=== PATIENT | female | born 1935 | race Caucasian/White ===

== ENCOUNTER 2019-12-31 11:06 | Outpatient (CLI) | payer MEDICARE, OTHER | END 2019-12-31 11:07 | disposition home or self-care (01) | LOC: COV 11:06 | PROVIDERS: ATTEND Family Medicine | DX: R50.9 Fever, unspecified (principal) | CPT/HCPCS: 81599 ==

== ENCOUNTER 2022-03-22 11:10 | Emergency (ER) | payer MEDICARE, OTHER ==
--- NOTE | 2022-03-22 11:27 | ED Physician Documentation ---
PD HPI CHEST PAIN - Stated complaint Stated Complaint: CHESTPAIN SOA WEAKNESS - Chief complaint Chief Complaint: Cardiac - History obtained from History obtained from: Patient, Family - History of Present Illness Timing - onset: How many weeks ago (1) Associated symptoms: Shortness of air - Additional information Additional information: () 86-year-old female with history of A. fib on Xarelto, hypertension, CKD (unknown stage, not on dialysis) presents by private vehicle with daughter who is her caregiver for 1 week of gradually worsening shortness of breath and fatigue. History is obtained primarily from daughter as the patient is a poor historian and cannot remember most of the details of her illness. Daughter states that the patient is normally active around the house and participatory in chores such as folding laundry, however the last week it was become progressively more tiresome for the patient to perform even normal ADLs. Today she states that the patient felt even more short of breath and appeared to grab her chest, and so she brought her mother in for evaluation. Patient at this time denies any chest pain, she states that she has felt very fatigued lately. Denies nausea, vomiting, leg swelling, orthopnea, other complaints at this time. Review of Systems Unable to obtain: Dementia Constitutional: denies: Weight Loss, Sweats Cardiac: denies: Chest pain / pressure, Pedal edema Respiratory: reports: Dyspnea. denies: Wheezing GI: denies: Abdominal Pain, Nausea, Vomiting Neurologic: reports: Other (Fatigue) PD PAST MEDICAL HISTORY - Past Medical History Past Medical History: Yes Cardiovascular: Atrial fibrillation - Allergies Allergies/Adverse Reactions: Allergies Allergy/AdvReac Type Severity Reaction Status Date / Time Penicillins Allergy Anaphylaxis Verified 03/22/22 11:19 PD ED PE NORMAL - Vitals Vital signs reviewed: Yes - General General: No acute distress, Well developed/nourished, Other (AOx2) - HEENT HEENT: Atraumatic, PERRL, EOMI - Neck Neck: Supple, no meningeal sign, No bony TTP, No adenopathy - Cardiac Cardiac: No murmur, No gallop, No rub, Other (Irregularly irregular) - Respiratory Respiratory: No respiratory distress, Clear bilaterally - Abdomen Abdomen: Soft, Non tender, Non distended - Back Back: No CVA TTP, No spinal TTP - Derm Derm: Normal color, No rash - Extremities Extremities: No deformity, No edema - 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, No motor deficit, No sensory deficit, Normal speech - Psych Psych: Normal mood, Normal affect Results - Vitals Vitals: Vital Signs - 24 hr 03/22/22 03/22/22 03/22/22 11:13 12:13 12:27 Temperature 36.1 C L Heart Rate 78 65 78 Respiratory 16 13 14 Rate Blood Pressure 218/125 H 212/117 H 176/100 H O2 Saturation 98 98 96 03/22/22 03/22/22 03/22/22 13:38 13:48 15:29 Temperature Heart Rate 73 Respiratory 18 Rate Blood Pressure 209/101 H 223/104 H 195/101 H O2 Saturation 100 03/22/22 16:25 Temperature Heart Rate 71 Respiratory 12 Rate Blood Pressure 208/93 H O2 Saturation 100 Oxygen O2 Source Room air - EKG (time done) 1124 Rate: Rate (enter#) Rhythm: Atrial fibrillation [place]: Normal Ischemia: Normal ST segments. No: ST depression - Labs Labs: Laboratory Tests 03/22/22 03/22/22 03/22/22 11:27 11:27 11:27 WBC 5.6 RBC 4.09 L Hgb 13.3 Hct 40.9 MCV 100.0 H MCH 32.5 H MCHC 32.5 RDW 13.6 Plt Count 191 MPV 10.2 Neut # (Auto) 3.9 Lymph # (Auto) 1.1 L [place] # (Auto) 0.4 Eos # (Auto) 0.2 Baso # (Auto) 0.1 Absolute Nucleated RBC 0.00 Nucleated RBC % 0.0 PT INR APTT Sodium 138 Potassium 4.6 Chloride 99 L Carbon Dioxide 29 Anion Gap 10.0 BUN 36 H Creatinine 1.6 H Estimated GFR (MDRD) 31 L Glucose 118 H Calcium 9.0 Total Bilirubin 1.3 H AST 18 ALT 12 Alkaline Phosphatase 45 Troponin I High Sens 16.7 H* B-Natriuretic Peptide Total Protein 6.9 Albumin 3.9 Globulin 3.0 Albumin/Globulin Ratio 1.3 Urine Color Urine Clarity Urine pH Ur Specific [place] Urine Protein Urine Glucose (UA) Urine Ketones Urine Occult Blood Urine Nitrite Urine Bilirubin Urine Urobilinogen Ur Leukocyte Esterase Urine RBC Urine WBC Ur Squamous Epith Cells Urine Bacteria Ur Microscopic Review Urine Culture Comments 03/22/22 03/22/22 03/22/22 11:27 11:27 13:06 WBC RBC Hgb Hct MCV MCH MCHC RDW Plt Count MPV Neut # (Auto) Lymph # (Auto) [place] # (Auto) Eos # (Auto) Baso # (Auto) Absolute Nucleated RBC Nucleated RBC % PT 20.4 H INR 1.8 H APTT 34.1 H Sodium Potassium Chloride Carbon Dioxide Anion Gap BUN Creatinine Estimated GFR (MDRD) Glucose Calcium Total Bilirubin AST ALT Alkaline Phosphatase Troponin I High Sens 16.3 H* B-Natriuretic Peptide 581 H Total Protein Albumin Globulin Albumin/Globulin Ratio Urine Color Urine Clarity Urine pH Ur Specific [place] Urine Protein Urine Glucose (UA) Urine Ketones Urine Occult Blood Urine Nitrite Urine Bilirubin Urine Urobilinogen Ur Leukocyte Esterase Urine RBC Urine WBC Ur Squamous Epith Cells Urine Bacteria Ur Microscopic Review Urine Culture Comments 03/22/22 13:18 WBC RBC Hgb Hct MCV MCH MCHC RDW Plt Count MPV Neut # (Auto) Lymph # (Auto) [place] # (Auto) Eos # (Auto) Baso # (Auto) Absolute Nucleated RBC Nucleated RBC % PT INR APTT Sodium Potassium Chloride Carbon Dioxide Anion Gap BUN Creatinine Estimated GFR (MDRD) Glucose Calcium Total Bilirubin AST ALT Alkaline Phosphatase Troponin I High Sens B-Natriuretic Peptide Total Protein Albumin Globulin Albumin/Globulin Ratio Urine Color YELLOW Urine Clarity CLEAR Urine pH 7.0 Ur Specific [place] 1.010 Urine Protein NEGATIVE Urine Glucose (UA) NEGATIVE Urine Ketones NEGATIVE Urine Occult Blood NEGATIVE Urine Nitrite NEGATIVE Urine Bilirubin NEGATIVE Urine Urobilinogen 0.2 (NORMAL) Ur Leukocyte Esterase SMALL H Urine RBC None Seen Urine WBC 6-10 H Ur Squamous Epith Cells MOD Squamous H Urine Bacteria Few Ur Microscopic Review INDICATED Urine Culture Comments NOT INDICATED PD MEDICAL DECISION MAKING - ED course ED course: Patient presenting for evaluation of 1 week of gradually worsening symptoms. Hypertensive on arrival, however lungs are clear to auscultation bilaterally, oxygen saturations within normal limits on room air. EKG A. fib without evidence of ischemia. Initial troponin is 16, however patient does have CKD, GFR is in the 30s. No previous values for comparison. Patient is resting comfortably, she denies any chest pain at this time, states that she does not feel short of breath at this time, it is only with exertion. Will obtain 2-hour troponin and will reassess. 2-hour troponin is unchanged from previous. I was able to speak with the [facility] anaesthetic technician Dr. Mayfield, who stated that the patient was complicated and has not had a repeat echo. Requested transfer to [facility] for continuity of care. At 1440 there were no bed available and transfer center stated they would call back at 1530 with an update. 1600 - no update from [facility] placed call for update. Patient has been accepted by [facility] for potential transfer, however no beds available immediately at this time. She was placed on transfer list, hopeful bed will be available either tonight or early tomorrow morning. Patient and the family were updated, they are in agreement with this plan at this time - Consults Consults: Consulted (name) (Dr. Mayfield) Departure - Departure Disposition: 02 Transfer Acute Care Hosp Clinical Impression: Dyspnea Qualifiers: Dyspnea type: shortness of breath Qualified Code(s): R06.02 - Shortness of breath; R06.00 - Dyspnea, unspecified; R06.01 - Orthopnea Atrial fibrillation Qualifiers: Atrial fibrillation type: longstanding persistent Qualified Code(s): I48.11 - Longstanding persistent atrial fibrillation
[2022-03-22 11:34] LABS: BASOPHILS # (AUTO) 0.1 10^3/uL (0.0-0.1); BASOPHILS % (AUTO) 1.2 %; EOSINOPHILS # (AUTO) 0.2 10^3/uL (0.0-0.7); EOSINOPHILS % (AUTO) 3.6 %; HCT - HEMATOCRIT 40.9 % (37.0-47.0); HGB - HEMOGLOBIN 13.3 g/dL (12.0-16.0); LYMPHOCYTES # (AUTO) 1.1 10^3/uL (1.5-3.5); LYMPHOCYTES % (AUTO) 19.7 %; MEAN CORPUSCULAR HEMOGLOBIN 32.5 pg (27.0-31.0); MEAN CORPUSCULAR HGB CONC 32.5 g/dL (32.0-36.0); MEAN PLATELET VOLUME 10.2 fL (7.9-10.8); MONOCYTES # (AUTO) 0.4 10^3/uL (0.0-1.0); MONOCYTES % (AUTO) 6.7 %; NEUTROPHILS # (AUTO) 3.9 10^3/uL (1.5-6.6); NEUTROPHILS % (AUTO) 68.6 %; PLT - PLATELET COUNT 191 10^3/uL (130-450); RED BLOOD COUNT 4.09 10^6/uL (4.20-5.40); RED CELL DISTRIBUTION WIDTH 13.6 % (12.0-15.0); WHITE BLOOD COUNT 5.6 x10^3/uL (4.8-10.8)
[2022-03-22 11:41] LABS: INR 1.8 (0.8-1.2); PT - PROTHROMBIN TIME 20.4 secs (9.9-12.6)
[2022-03-22 11:49] LABS: ALBUMIN 3.9 g/dL (3.2-5.5); ALBUMIN/GLOBULIN RATIO 1.3 (1.0-2.2); BILIRUBIN,TOTAL 1.3 mg/dL (0.2-1.0); CREATININE 1.6 mg/dL (0.4-1.0); POTASSIUM 4.6 mmol/L (3.5-5.0); TOTAL PROTEIN 6.9 g/dL (6.7-8.2)
[2022-03-22 11:50] LABS: PARTIAL THROMBOPLASTIN TIME 34.1 secs (24.9-33.3)
[2022-03-22] MEDS ORDERED: NITROGLYCERIN SL 0.4 MG TABLET SL PRN (11:58)
--- NOTE | 2022-03-22 12:00 | XRAY Report ---
PROCEDURE: Chest 1 View X-Ray INDICATIONS: chest pain TECHNIQUE: One view of the chest was acquired. COMPARISON: None FINDINGS: Surgical changes and devices: None. Lungs and pleura: No pleural effusions or pneumothorax. Lungs are clear. Mediastinum: Mediastinal contours appear normal. Heart size is normal. Bones and chest wall: No suspicious bony lesions. Overlying soft tissues appear unremarkable. IMPRESSION: No acute process. Reviewed by: Cristiano López MD on 03/22/2022 11:58 AM PDT Approved by: Cristiano López MD on 03/22/2022 11:58 AM PDT Station ID: [id number]
[2022-03-22] MEDS ORDERED: hydrALAZINE INJ 20 MG/ML VIAL IVP STA (13:25)
[2022-03-22 13:59] LABS: BILIRUBIN,URINE NEGATIVE (NEGATIVE); CLARITY,URINE CLEAR (CLEAR); GLUCOSE, URINE (UA) NEGATIVE (NEGATIVE); KETONES,URINE (UA) NEGATIVE (NEGATIVE); LEUKOCYTE ESTERASE, URINE SMALL (NEGATIVE); NITRITE,URINE NEGATIVE (NEGATIVE); OCCULT BLOOD,URINE NEGATIVE (NEGATIVE); PROTEIN,URINE NEGATIVE (NEGATIVE); UROBILINOGEN,URINE 0.2 (NORMAL) E.U./dL (NORMAL)
[2022-03-22 14:09] LABS: BACTERIA,URINE Few /HPF (None Seen); RBC,URINE None Seen /HPF (0-5); SQUAMOUS EPITHELIAL CELL,UR MOD Squamous (<= Few)
[2022-03-22] MEDS ORDERED: ONDANSETRON 4 MG/2 ML VIAL IVP STA (19:44)
[2022-03-22] MEDS ORDERED: ACETAMINOPHEN 1,000 MG/100 ML BAG IV ONE (19:44)
[2022-03-23 13:12] VITALS: BP 194/84
[2022-03-23] MEDS ORDERED: METOPROLOL 5 MG/5 ML VIAL IVP STA (13:33)
--- NOTE | 2022-03-23 17:39 | ED Physician Documentation ---
ED Addendum - Addendum Addendum: 03/23/22 17:38[facility] now has bed availability. I talked with Dr. Mclaughlin the hospitalist and updated him on the patient's status. The patient has remained without chest pain here at this time. Dr. Mclaughlin was excepting of the patient. Disposition: The patient is transferred to acute care facility in stable condition. Diagnoses: 1. Exertional dyspnea and fatigue. 2. Progressive angina
== END 2022-03-23 14:09 | disposition short-term general hospital (02) ==
LOC: ED 11:10
DX: I48.11 Longstanding persistent atrial fibrillation (principal); N18.9 Chronic kidney disease, unspecified; R06.01 Orthopnea; F03.90 Unspecified dementia, unspecified severity, without behavioral disturbance, psychotic disturbance, mood disturbance, and anxiety; Z20.822 Contact with and (suspected) exposure to COVID-19; I20.9 Angina pectoris, unspecified
CPT/HCPCS: 36415; 71045; 80053; 81001; 83880; 84484; 85025; 85610; 85730; 87635; 93005; 96365; 96375; 99282; 99285; A9270; J0131; 81003; 87086

== ENCOUNTER 2022-07-03 09:46 | Outpatient (CLI) | payer MEDICARE, OTHER | END 2022-07-03 09:47 | disposition critical access hospital (66) | LOC: EMS 09:46 | DX: R53.1 Weakness (principal); R55 Syncope and collapse | CPT/HCPCS: A0425; A0429 ==

== ENCOUNTER 2022-07-03 09:59 | Emergency (ER) | payer MEDICARE, OTHER ==
[2022-07-03 10:37] LABS: BASOPHILS % (AUTO) 0.7 %; EOSINOPHILS # (AUTO) 0.1 10^3/uL (0.0-0.7); EOSINOPHILS % (AUTO) 2.4 %; HCT - HEMATOCRIT 42.4 % (37.0-47.0); HGB - HEMOGLOBIN 14.2 g/dL (12.0-16.0); MEAN CORPUSCULAR HEMOGLOBIN 33.1 pg (27.0-31.0); MEAN CORPUSCULAR HGB CONC 33.5 g/dL (32.0-36.0); MEAN CORPUSCULAR VOLUME 98.8 fL (81.0-99.0); MEAN PLATELET VOLUME 9.7 fL (7.9-10.8); MONOCYTES # (AUTO) 0.4 10^3/uL (0.0-1.0); NEUTROPHILS # (AUTO) 4.3 10^3/uL (1.5-6.6); NEUTROPHILS % (AUTO) 73.6 %; PLT - PLATELET COUNT 195 10^3/uL (130-450); RED BLOOD COUNT 4.29 10^6/uL (4.20-5.40); WHITE BLOOD COUNT 5.8 x10^3/uL (4.8-10.8)
[2022-07-03 10:49] LABS: ALBUMIN/GLOBULIN RATIO 1.3 (1.0-2.2); BILIRUBIN,TOTAL 1.5 mg/dL (0.2-1.0); CALCIUM 9.4 mg/dL (8.5-10.3); CREATININE 1.5 mg/dL (0.4-1.0); POTASSIUM 3.9 mmol/L (3.5-5.0); TOTAL PROTEIN 7.2 g/dL (6.7-8.2)
[2022-07-03] MEDS ORDERED: SODIUM CHLORIDE 0.9% 500 ML IV STA (11:02)
--- NOTE | 2022-07-03 11:03 | ED Physician Documentation ---
History of Present Illness - Stated complaint Stated Complaint: WEAKNESS/SOA/NEAR SYNCOPE - Chief complaint Chief Complaint: Neuro - History obtained from History obtained from: Patient, Family - Additonal information Additional information: Patient is an 86-year-old female with history of atrial fibrillation presenting for evaluation of feeling near syncopal and generalized weakness since last night. Patient reports getting up to the bathroom and feeling weak and fell down to her knees. She does not believe she struck her head but is unsure. She does not believe she lost consciousness. She was able to get to the bathroom and back into bed. Again this morning she has been feeling weak and lightheaded. She is also reported recently feeling short of breath Including at rest. She has a history of A. fib. She is no longer on a blood thinner Per her daughter as they took her off it a few months ago due to concerns of a possible head bleed.Patient denies a headache. She denies episodes of chest pain. She denies abdominal pain, vomiting, dysuria. Per her daughter her lower extremity swelling is improved. Review of Systems Constitutional: denies: Fever Nose: denies: Congestion Cardiac: denies: Chest pain / pressure Respiratory: reports: Dyspnea. denies: Cough GI: denies: Abdominal Pain, Vomiting : denies: Dysuria Musculoskeletal: denies: Back pain Neurologic: reports: Generalized weakness. denies: Focal weakness, Syncope, Headache PD PAST MEDICAL HISTORY - Past Medical History Cardiovascular: Atrial fibrillation : Renal insuffiency - Present Medications Home Medications: Ambulatory Orders Medication Instructions Recorded Confirmed Hydralazine HCl 50 mg PO Q8H 07/03/22 07/03/22 Levothyroxine [Synthroid] 88 mcg PO QDAC 07/03/22 07/03/22 Memantine [Namenda] 10 mg PO BID 07/03/22 07/03/22 Omeprazole Magnesium [Prilosec] 20 mg PO BID 07/03/22 07/03/22 Rivastigmine [Exelon 13.3MG] 1 each TD DAILY 07/03/22 07/03/22 Rosuvastatin Calcium [Crestor] 5 mg PO DAILY 07/03/22 07/03/22 amLODIPine [Norvasc] 5 mg PO DAILY 07/03/22 07/03/22 carvediloL [Coreg] 12.5 mg PO BID 07/03/22 07/03/22 - Allergies Allergies/Adverse Reactions: Allergies Allergy/AdvReac Type Severity Reaction Status Date / Time Penicillins Allergy Anaphylaxis Verified 03/22/22 11:19 - Social History Does the pt smoke?: No Smoking Status: Never smoker Does the pt drink ETOH?: No Does the pt have substance abuse?: No - Immunizations Immunizations are current?: Yes - POLST Patient has POLST: No PD ED PE NORMAL - General General: No acute distress, Well developed/nourished, Other (Alert and oriented to person, place, situation but does not know month and year which per daughter is baseline for her) - HEENT HEENT: Atraumatic, Moist mucous membranes - Neck Neck: Supple, no meningeal sign - Cardiac Cardiac: Strong equal pulses (Irregularly irregular, normal rate) - Respiratory Respiratory: No respiratory distress, Clear bilaterally - Abdomen Abdomen: Non tender, Non distended - Derm Derm: Warm and dry - Extremities Extremities: No calf tenderness / cord, Other (Symmetric lower extremity edema) - 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 No: Alert and oriented X 3 (Alert and oriented to baseline) Results - Vitals Vitals: Vital Signs - 24 hr 07/03/22 07/03/22 07/03/22 10:12 12:17 14:00 Temperature 36.8 C Heart Rate 74 74 78 Respiratory 20 13 28 H Rate Blood Pressure 208/85 H 161/95 H 155/78 H O2 Saturation 100 100 99 Oxygen O2 Source Room air - EKG (time done) 1010 Rate: Rate (enter#) (71) Rhythm: Atrial fibrillation Intervals: No: Prolonged QT Ischemia: No: ST elevation c/w ischemia - Labs Labs: Laboratory Tests 07/03/22 07/03/22 07/03/22 10:31 10:31 10:31 WBC 5.8 RBC 4.29 Hgb 14.2 Hct 42.4 MCV 98.8 MCH 33.1 H MCHC 33.5 RDW 13.0 Plt Count 195 MPV 9.7 Neut # (Auto) 4.3 Lymph # (Auto) 1.0 L [place] # (Auto) 0.4 Eos # (Auto) 0.1 Baso # (Auto) 0.0 Absolute Nucleated RBC 0.00 Nucleated RBC % 0.0 D-Dimer Sodium 140 Potassium 3.9 Chloride 104 Carbon Dioxide 26 Anion Gap 10.0 BUN 37 H Creatinine 1.5 H Estimated GFR (MDRD) 33 L Glucose 102 H Calcium 9.4 Total Bilirubin 1.5 H AST 17 ALT 11 Alkaline Phosphatase 48 Troponin I High Sens 12.8 B-Natriuretic Peptide Total Protein 7.2 Albumin 4.0 Globulin 3.2 Albumin/Globulin Ratio 1.3 Urine Color Urine Clarity Urine pH Ur Specific [place] Urine Protein Urine Glucose (UA) Urine Ketones Urine Occult Blood Urine Nitrite Urine Bilirubin Urine Urobilinogen Ur Leukocyte Esterase Ur Microscopic Review Urine Culture Comments SARS-CoV-2 (PCR) 07/03/22 07/03/22 07/03/22 10:31 10:39 11:10 WBC RBC Hgb Hct MCV MCH MCHC RDW Plt Count MPV Neut # (Auto) Lymph # (Auto) [place] # (Auto) Eos # (Auto) Baso # (Auto) Absolute Nucleated RBC Nucleated RBC % D-Dimer 261.3 H Sodium Potassium Chloride Carbon Dioxide Anion Gap BUN Creatinine Estimated GFR (MDRD) Glucose Calcium Total Bilirubin AST ALT Alkaline Phosphatase Troponin I High Sens B-Natriuretic Peptide 267 H Total Protein Albumin Globulin Albumin/Globulin Ratio Urine Color Urine Clarity Urine pH Ur Specific [place] Urine Protein Urine Glucose (UA) Urine Ketones Urine Occult Blood Urine Nitrite Urine Bilirubin Urine Urobilinogen Ur Leukocyte Esterase Ur Microscopic Review Urine Culture Comments SARS-CoV-2 (PCR) NOT DETECTED 07/03/22 13:08 WBC RBC Hgb Hct MCV MCH MCHC RDW Plt Count MPV Neut # (Auto) Lymph # (Auto) [place] # (Auto) Eos # (Auto) Baso # (Auto) Absolute Nucleated RBC Nucleated RBC % D-Dimer Sodium Potassium Chloride Carbon Dioxide Anion Gap BUN Creatinine Estimated GFR (MDRD) Glucose Calcium Total Bilirubin AST ALT Alkaline Phosphatase Troponin I High Sens B-Natriuretic Peptide Total Protein Albumin Globulin Albumin/Globulin Ratio Urine Color LIGHT YELLOW Urine Clarity CLEAR Urine pH 6.5 Ur Specific [place] <=1.005 Urine Protein NEGATIVE Urine Glucose (UA) NEGATIVE Urine Ketones NEGATIVE Urine Occult Blood NEGATIVE Urine Nitrite NEGATIVE Urine Bilirubin NEGATIVE Urine Urobilinogen 0.2 (NORMAL) Ur Leukocyte Esterase NEGATIVE Ur Microscopic Review NOT INDICATED Urine Culture Comments NOT INDICATED SARS-CoV-2 (PCR) PD MEDICAL DECISION MAKING - ED course Complexity details: reviewed results, re-evaluated patient, d/w patient, d/w family ED course: Pt presenting with generalized weakness. No focal deficits. CT head ordered due to ?head injury. Appears unchanged from March. Reviewed with pt and daughter in regards to need for outpatient MRI. Labs reviewed. Ddimer negative if age adjusted. TRoponin negative and pt has denied CP. Does not appear septic. She feels better after small fluid bolus and is ambulating here at her baseline. BP improved without meds. Daughter and pt comfortable with plan for discharge and close follow up. 1330 - Passed road test. Departure - Departure Disposition: Home, Self Care Clinical Impression: Generalized weakness Condition: Stable Instructions: ED Weakness UKO Comments: You were Evaluated for weakness and lightheadedness. Your EKG shows that you are in atrial fibrillation but you are rate controlled. Your labs were checked and there are no signs of a heart attack or blood clot in your body. I do not see signs of an infection or electrolyte issue. You did feel better after IV fluids and were able to ambulate at your baseline. Please contact your primary care doctor on Tuesday for close outpatient follow-up. You may need an outpatient MRI of your brain given the abnormality seen on today's CT scan as well as back in March. If you have any worsening symptoms please consider return to the ER. Discharge Date/Time: 07/03/22 14:44
--- NOTE | 2022-07-03 11:33 | XRAY Report ---
PROCEDURE: Chest 1 View X-Ray INDICATIONS: weakness TECHNIQUE: One view of the chest was acquired. COMPARISON: 03/22/2022 FINDINGS: Surgical changes and devices: None. Lungs and pleura: No pleural effusions or pneumothorax. Lungs are clear. Mediastinum: Mediastinal contours appear normal. Heart size is enlarged. Atherosclerotic vascular calcification noted in the aortic arch. Bones and chest wall: No suspicious bony lesions. Overlying soft tissues appear unremarkable. IMPRESSION: 20 mL without vascular congestion Reviewed by: Marko Green MD on 07/03/2022 10:32 AM UCHE Approved by: Marko Green MD on 07/03/2022 10:32 AM [place] Station ID: [id number]
--- NOTE | 2022-07-03 11:47 | CT Report ---
PROCEDURE: CT brain without contrast INDICATIONS: near syncope/?head injury TECHNIQUE: Noncontrast 4.5 mm thick angled axial sections acquired from the foramen magnum to the vertex. For r adiation dose reduction, the following was used: automated exposure control, adjustment of mA and/or kV according to patient size. COMPARISON: None. FINDINGS: Image quality: Excellent. CSF spaces: Basal cisterns are patent. No extra-axial fluid collections. Ventricles are normal in size and shape. Brain: No midline shift. 4 mm hyperdensity in the right centrum semiovale white matter. No surroundi ng edema. No mass effect. Box-white matter interface is normal. Moderate atrophy and multifocal wh ite matter chronic ischemic change noted. Atherosclerotic vascular calcification noted in the [place] segments of both internal carotid arteries as well as the intradural vertebral arteries. Old left cerebellar infarct. Skull and face: Calvarium and visualized facial bones are intact, without suspicious lesions. Sinuses: Visualized sinuses and mastoids are clear. IMPRESSION: 1. Punctate hyperdensity in the right centrum semiovale white matter is stable from a prior exam date d 03/26/2022 from [facility]. Differential small petechial hemorrhage and calcification po ssibly related to cavernous hemangioma. Further evaluation with MRI recommended. No new hemorrhage or midline shift 2. Atrophy and chronic ischemic change Note: Critical results were discussed with Dr. Zeng at 10:40 AM [place] time on 07/03/2022 Reviewed by: Marko Green MD on 07/03/2022 10:45 AM AKDT Approved by: Marko Green MD on 07/03/2022 10:45 AM AKDT Station ID: [id number]
[2022-07-03 13:19] LABS: BILIRUBIN,URINE NEGATIVE (NEGATIVE); GLUCOSE, URINE (UA) NEGATIVE (NEGATIVE); KETONES,URINE (UA) NEGATIVE (NEGATIVE); LEUKOCYTE ESTERASE, URINE NEGATIVE (NEGATIVE); NITRITE,URINE NEGATIVE (NEGATIVE); OCCULT BLOOD,URINE NEGATIVE (NEGATIVE); PH,URINE 6.5 PH (5.0-7.5); PROTEIN,URINE NEGATIVE (NEGATIVE); UROBILINOGEN,URINE 0.2 (NORMAL) E.U./dL (NORMAL)
[2022-07-03 13:20] LABS: CLARITY,URINE CLEAR (CLEAR)
[2022-07-03 14:44] VITALS: BP 155/78
== END 2022-07-03 14:44 | disposition home or self-care (01) ==
LOC: EDUNIT# → ED 09:59
DX: R53.1 Weakness (principal); I48.91 Unspecified atrial fibrillation; Z20.822 Contact with and (suspected) exposure to COVID-19
CPT/HCPCS: 36415; 80053; 81001; 81003; 83880; 84484; 85025; 85379; 87086; 93005; 99284

== ENCOUNTER 2023-09-10 08:00 | Outpatient (CLI) | payer MEDICARE, OTHER | END 2023-09-10 23:59 | disposition home or self-care (01) | LOC: LAB.N 08:00 | PROVIDERS: ATTEND Physician Assistant Medical | DX: R11.0 Nausea (principal) | CPT/HCPCS: 87086 ==

== ENCOUNTER 2024-02-28 09:22 | Emergency (ER) | payer MEDICARE, OTHER ==
[2024-02-28 10:39] LABS: BASOPHILS % (AUTO) 0.3 %; EOSINOPHILS # (AUTO) 0.2 10^3/uL (0.0-0.7); HGB - HEMOGLOBIN 13.3 g/dL (12.0-16.0); LYMPHOCYTES # (AUTO) 0.8 10^3/uL (1.5-3.5); LYMPHOCYTES % (AUTO) 12.6 %; MEAN CORPUSCULAR HEMOGLOBIN 32.7 pg (27.0-31.0); MEAN CORPUSCULAR HGB CONC 33.3 g/dL (32.0-36.0); MEAN CORPUSCULAR VOLUME 98.3 fL (81.0-99.0); MEAN PLATELET VOLUME 9.7 fL (7.9-10.8); MONOCYTES # (AUTO) 0.2 10^3/uL (0.0-1.0); MONOCYTES % (AUTO) 2.8 %; NEUTROPHILS # (AUTO) 4.8 10^3/uL (1.5-6.6); NEUTROPHILS % (AUTO) 80.8 %; PLT - PLATELET COUNT 191 10^3/uL (130-450); RED BLOOD COUNT 4.07 10^6/uL (4.20-5.40); RED CELL DISTRIBUTION WIDTH 13.2 % (12.0-15.0)
[2024-02-28 10:52] LABS: ALBUMIN 4.3 g/dL (3.2-5.5); ALBUMIN/GLOBULIN RATIO 1.5 (1.0-2.2); BILIRUBIN,TOTAL 1.8 mg/dL (0.2-1.0); CALCIUM 9.7 mg/dL (8.5-10.3); CREATININE 1.3 mg/dL (0.6-1.3); POTASSIUM 3.5 mmol/L (3.5-4.5); TOTAL PROTEIN 7.1 g/dL (6.4-8.9)
--- NOTE | 2024-02-28 13:23 | ED Physician Documentation ---
History of Present Illness - Stated complaint Stated Complaint: HIGH BLOOD PRESSURE,VOMITING - Chief complaint Chief Complaint: Abd Pain - Additonal information Additional information: 88-year-old female with history of hypertension, A-fib, Alzheimer's disease, renal insufficiency presents emergency department for Episode of left chest pain, shortness of breath, hypertension. Patient had a couple episodes of nausea vomiting diarrhea that occurred last night her caregiver is at bedside and \is describing the symptoms below. Because of the nausea vomiting diarrhea that the patient is having as well as her poor appetite she is unable to take her antihypertensive medication. She comes into the emergency department for hypertension left chest pain. She has not had any nausea or vomiting since she has been here in the emergency department. PD PAST MEDICAL HISTORY - Past Medical History Past Medical History: Yes Cardiovascular: Hypertension, Atrial fibrillation Neuro: Alzhiemer's : Renal insuffiency - Present Medications Home Medications: Ambulatory Orders Medication Instructions Recorded Confirmed Hydralazine HCl 50 mg PO Q8H 07/03/22 02/28/24 Levothyroxine [Synthroid] 88 mcg PO QDAC 07/03/22 02/28/24 Memantine [Namenda] 10 mg PO BID 07/03/22 02/28/24 Omeprazole Magnesium [Prilosec] 20 mg PO BID 07/03/22 07/03/22 Rivastigmine [Exelon 13.3MG] 1 each TD DAILY 07/03/22 02/28/24 Rosuvastatin Calcium [Crestor] 5 mg PO DAILY 07/03/22 02/28/24 amLODIPine [Norvasc] 5 mg PO DAILY 07/03/22 02/28/24 carvediloL [Coreg] 12.5 mg PO BID 07/03/22 02/28/24 Mirtazapine 0.5 tab PO DAILY 02/28/24 02/28/24 Pantoprazole [Protonix] 1 tab PO DAILY 02/28/24 02/28/24 amLODIPine [Norvasc] 1 tab PO DAILY 02/28/24 02/28/24 - Allergies Allergies/Adverse Reactions: Allergies Allergy/AdvReac Type Severity Reaction Status Date / Time aspirin Allergy Anaphylaxis Verified 02/28/24 15:04 Gadolinium-Containing Allergy Hives Verified 02/28/24 15:06 Contrast Medi iodine Allergy Hives Verified 02/28/24 15:06 Penicillins Allergy Anaphylaxis Verified 02/28/24 10:14 - Social History Does the pt smoke?: No Smoking Status: Never smoker Does the pt drink ETOH?: No Does the pt have substance abuse?: No - Immunizations Immunizations are current?: Yes - POLST Patient has POLST: No PD ED PE NORMAL - Vitals Vital signs reviewed: Yes - General General: No acute distress, Well developed/nourished, Other (Alert and oriented x 1-2) - HEENT HEENT: Atraumatic, PERRL - Cardiac Cardiac: Other (Irregularly irregular) - Respiratory Respiratory: No respiratory distress, Clear bilaterally - Abdomen Abdomen: Normal bowel sounds, Soft, Non tender, No organomegaly - Back Back: No CVA TTP - Derm Derm: Normal color, Warm and dry, No rash - Extremities Extremities: No edema, No calf tenderness / cord - Neuro Neuro: attractions associate 2-12 intact, No motor deficit, No sensory deficit, Normal speech Results - Vitals Vitals: Vital Signs - 24 hr 02/28/24 02/28/24 02/28/24 10:08 13:28 15:00 Temperature 36.9 C 36.9 C Heart Rate 57 L 65 70 Respiratory 15 18 18 Rate Blood Pressure 180/98 H 190/92 H 175/85 H O2 Saturation 99 99 97 02/28/24 02/28/24 02/28/24 17:00 18:30 19:59 Temperature Heart Rate 72 58 L 74 Respiratory 20 16 16 Rate Blood Pressure 161/76 H 153/70 H 183/78 H O2 Saturation 98 94 94 Oxygen O2 Source Room air - EKG (time done) 1511 EKG releavant findings:: EKG personally interpreted by author of this note. Relevant findings are: Rate: Rate (enter#) (63) Rhythm: Atrial fibrillation [place]: LAD Intervals: Normal AR Ischemia: Normal ST segments Computer interpretation: Agree with computer - Labs Labs: Laboratory Tests 02/28/24 02/28/24 02/28/24 10:35 10:35 10:35 WBC 6.0 RBC 4.07 L Hgb 13.3 Hct 40.0 MCV 98.3 MCH 32.7 H MCHC 33.3 RDW 13.2 Plt Count 191 MPV 9.7 Neut # (Auto) 4.8 Lymph # (Auto) 0.8 L [place] # (Auto) 0.2 Eos # (Auto) 0.2 Baso # (Auto) 0.0 Absolute Nucleated RBC 0.00 Nucleated RBC % 0.0 Sodium 138 Potassium 3.5 Chloride 101 Carbon Dioxide 26 Anion Gap 11.0 BUN 31 H Creatinine 1.3 Estimated GFR (MDRD) 39 L Glucose 124 H Calcium 9.7 Total Bilirubin 1.8 H AST 17 ALT 8 L Alkaline Phosphatase 45 Troponin I High Sens 15.3 H* Total Protein 7.1 Albumin 4.3 Globulin 2.8 Albumin/Globulin Ratio 1.5 Lipase 97 H Urine Color Urine Clarity Urine pH Ur Specific [place] Urine Protein Urine Glucose (UA) Urine Ketones Urine Occult Blood Urine Nitrite Urine Bilirubin Urine Urobilinogen Ur Leukocyte Esterase Ur Microscopic Review Urine Culture Comments Nasal Adenovirus (PCR) Nasal B. parapertussis DNA (PCR) Nasal Coronavir 229E PCR Nasal Coronavir HKU1 PCR Nasal Coronavir NL63 PCR Nasal Coronavir OC43 PCR Nasal Enterovir/Rhinovir PCR Nasal Influenza B PCR Nasal Influenza A PCR Nasal Parainfluen 1 PCR Nasal Parainfluen 2 PCR Nasal Parainfluen 3 PCR Nasal Parainfluen 4 PCR Nasal RSV (PCR) Nasal B.pertussis DNA PCR Nasal C.pneumoniae (PCR) Zuhair Human Metapneumo PCR Nasal M.pneumoniae (PCR) Nasal SARS-CoV-2 (PCR) 02/28/24 02/28/24 02/28/24 13:47 14:39 15:26 WBC RBC Hgb Hct MCV MCH MCHC RDW Plt Count MPV Neut # (Auto) Lymph # (Auto) [place] # (Auto) Eos # (Auto) Baso # (Auto) Absolute Nucleated RBC Nucleated RBC % Sodium Potassium Chloride Carbon Dioxide Anion Gap BUN Creatinine Estimated GFR (MDRD) Glucose Calcium Total Bilirubin AST ALT Alkaline Phosphatase Troponin I High Sens 16.8 H* Total Protein Albumin Globulin Albumin/Globulin Ratio Lipase Urine Color YELLOW Urine Clarity CLEAR Urine pH 8.0 H Ur Specific [place] 1.010 Urine Protein NEGATIVE Urine Glucose (UA) NEGATIVE Urine Ketones NEGATIVE Urine Occult Blood NEGATIVE Urine Nitrite NEGATIVE Urine Bilirubin NEGATIVE Urine Urobilinogen 0.2 (NORMAL) Ur Leukocyte Esterase NEGATIVE Ur Microscopic Review NOT INDICATED Urine Culture Comments NOT INDICATED Nasal Adenovirus (PCR) NOT DETECTED Nasal B. parapertussis DNA (PCR) NOT DETECTED Nasal Coronavir 229E PCR NOT DETECTED Nasal Coronavir HKU1 PCR NOT DETECTED Nasal Coronavir NL63 PCR NOT DETECTED Nasal Coronavir OC43 PCR NOT DETECTED Nasal Enterovir/Rhinovir PCR NOT DETECTED Nasal Influenza B PCR NOT DETECTED Nasal Influenza A PCR NOT DETECTED Nasal Parainfluen 1 PCR NOT DETECTED Nasal Parainfluen 2 PCR NOT DETECTED Nasal Parainfluen 3 PCR NOT DETECTED Nasal Parainfluen 4 PCR NOT DETECTED Nasal RSV (PCR) NOT DETECTED Nasal B.pertussis DNA PCR NOT DETECTED Nasal C.pneumoniae (PCR) NOT DETECTED Zuhair Human Metapneumo PCR NOT DETECTED Nasal M.pneumoniae (PCR) NOT DETECTED Nasal SARS-CoV-2 (PCR) NOT DETECTED - Rads (name of study) Chest x-ray Relevant Findings:: Final report received, EMP independent interpretation of test, Other (Blunting of the right costophrenic angle possible right effusion versus lung scarring, prominent pulmonary vasculature suggestive of pulmonary hypertension.) CT chest angio Relevant Findings:: Final report received, EMP independent interpretation of test, Other (No acute pulmonary emboli, cardiomegaly, main pulmonary artery shayla sures 3.1 cm in diameter most likely due to pulmonary arterial hypertension.) PD Medical Decision Making - ED course ED course: 88-year-old female presents emergency department for left-sided chest pain shortness of breath, episode of nausea vomiting with hypertension due to the fact that patient is unable to take antihypertensives at home. Patient's daughter is at bedside at this point in time was able to provide more history. She reports that she has chronic atrial fibrillation and is not anticoagulated. Patient had a spontaneous intracranial hemorrhage a couple years ago and her integrity manager removed her from her anticoagulants because of spontaneous intracranial hemorrhage. Patient was also found in the room to have a good Pleth and intermittent hypoxia sats down to 8987% because of this I could not rule out possible pulmonary embolism. CT angio was complete for further evaluation and it did not reveal any pulmonary embolism it revealed cardiomegaly which is already known as well as pulmonary hypertension. Labs are also complete for further evaluation of patient's symptoms and initial troponin was found to be elevated at 15.3 and then delta troponin 16.8 not making me concerned or worried about this being related to possible acute coronary syndrome as there is no positive delta. No significant electrolyte abnormalities GFR slightly suppressed at 39 this appears to be chronic for patient given her chronic kidney disease lipase slightly elevated at 97 but not indicative of possible cholecystitis or bile occlusion. No leukocytosis no anemia. Patient had a complete and thorough workup and evaluation she was monitored for several hours in the emergency department and her symptoms did not change she might have sleep apnea as her oxygen tended to drop when she was at rest or sleeping but she was told to follow-up with her integrity manager and primary care provider for further evaluation outpatient they are given ER return precautions told to resume her antihypertensives at home she said no nausea or vomiting for several hours in the emergency department as well as received 1 L of IV fluids. All questions been answered to patient's daughter who is currently her caregiver and they understand when to report back to the emergency department plan to follow-up with patient's integrity manager outpatient. Departure - Departure Disposition: Home, Self Care Clinical Impression: Cardiomegaly, Pulmonary hypertension Instructions: Abdominal Pain, Hypertension Pulmonary Comments: Thank you for trusting us with your care and I apologize for such a long ER visit. At this point in time we believe that your mom is safe for discharge she does have possible pulmonary hypertension and cardiomegaly which is seen on the CT scan I have copied and pasted the CT results below for your evaluation and reading. If you would like to further pursue this follow-up with her integrity manager at this point in time there is no further inventions that is stanford jones. Take your hypertension medications when you get home report back to ER if symptoms worsen or any other concerning symptoms. Wishing you a speedy recovery. EXAM: [id number] CT/CHTANG ([id number]) PROCEDURE: Angio Chest INDICATIONS: rule out PE CONTRAST: 80ml [id number] TECHNIQUE: After the administration of intravenous contrast, 2 mm axial images were acquired from the pulmonary apices to the posterior costophrenic angles during the arterial phase. In addition, 1 mm lung kernel and 5 mm soft tissue kernel reconstructions were performed. 3-dimensional coronal oblique maximum intensity projection (MIP) reformats, 8 mm axial MIP, and 5 mm coronal and sagittal MPR reformats were then performed through the thorax. For radiation dose reduction, the following was used: automated exposure control, adjustment of mA and/or kV according to patient size. COMPARISON: Chest radiographs 02/28/2024. FINDINGS: Image quality: Excellent. Large vessels: No filling defects within the opacified pulmonary arteries, accounting for motion and contrast timing. No evidence of acute aortic syndrome or aortic aneurysm. Main pulmonary artery measures up to 3.1 cm in diameter, which can be seen in the setting of pulmonary arterial hypertension. Right and left main pulmonary arteries also appear mildly prominent. Lungs and pleura: No consolidation. No pleural effusions. No pneumothorax. No suspicious pulmonary nodules which require follow up. Mediastinum: Heart size is enlarged. No pericardial effusion. No large vessel abnormality. No mediastinal adenopathy by size criteria. Chest wall and lower neck: Thyroid is unremarkable. No axillary or supraclavicular adenopathy by size. Bones: No aggressive osseous abnormality. Upper Abdomen: There is reflux of contrast material into the hepatic veins. Status post cholecystectomy. IMPRESSION: 1.No acute pulmonary embolus. 2.Cardiomegaly. 3.Main pulmonary artery measures 3.1 cm in diameter, which can be seen in the setting of pulmonary arterial hypertension. Forms: PCP List Discharge Date/Time: 02/28/24 20:03
[2024-02-28] MEDS: SODIUM CHLORIDE 0.9% 1,000 ML IV ONE (13:41)
[2024-02-28] MEDS: ONDANSETRON 4 MG/2 ML VIAL IVP STA (13:41)
--- NOTE | 2024-02-28 14:41 | XRAY Report ---
PROCEDURE: Chest 1V INDICATIONS: chest pain TECHNIQUE: One view of the chest was acquired. COMPARISON: 07/03/2022. FINDINGS: Surgical changes and devices: Cholecystectomy clips. Lungs and pleura: Blunting of the right costophrenic angle. No consolidation. Mediastinum: Mediastinal contours appear normal. Heart size is mildly enlarged, with prominence pul monary vasculature. Bones and chest wall: No suspicious bony lesions. Overlying soft tissues appear unremarkable. IMPRESSION: Blunting of the right costophrenic angle, which may indicate a small right effusion versus right lung scarring. Prominent pulmonary vasculature, suggestive of pulmonary hypertension. Reviewed by: Veto Carpenter MD on 02/28/2024 2:40 PM PDT Approved by: Veto Carpenter MD on 02/28/2024 2:40 PM PDT Station ID: [id number]
[2024-02-28 14:45] LABS: BILIRUBIN,URINE NEGATIVE (NEGATIVE); GLUCOSE, URINE (UA) NEGATIVE (NEGATIVE); KETONES,URINE (UA) NEGATIVE (NEGATIVE); LEUKOCYTE ESTERASE, URINE NEGATIVE (NEGATIVE); NITRITE,URINE NEGATIVE (NEGATIVE); OCCULT BLOOD,URINE NEGATIVE (NEGATIVE); PROTEIN,URINE NEGATIVE (NEGATIVE); UROBILINOGEN,URINE 0.2 (NORMAL) E.U./dL (NORMAL)
[2024-02-28 15:01] LABS: CLARITY,URINE CLEAR (CLEAR)
[2024-02-28 15:22] LABS: B. PARAPERTUSSIS- RESP PCR PAN NOT DETECTED; B. PERTUSSIS- RESP PCR PANEL NOT DETECTED; C. PNEUMONIAE- RESP PCR PANEL NOT DETECTED; CORONAVIRUS 229E-RESP PCR NOT DETECTED; CORONAVIRUS HKU1-RESP PCR NOT DETECTED; CORONAVIRUS NL63-RESP PCR NOT DETECTED; CORONAVIRUS OC43-RESP PCR NOT DETECTED; HUMAN METAPNEUMOVIRUS NOT DETECTED; INFLUENZA A- RESP PCR PANEL NOT DETECTED; INFLUENZA B - RESP PCR PANEL NOT DETECTED; M. PNEUMONIAE- RESP PCR PANEL NOT DETECTED; PARAINFLUENZA VIRUS 1 NOT DETECTED; PARAINFLUENZA VIRUS 2 NOT DETECTED; PARAINFLUENZA VIRUS 3 NOT DETECTED; PARAINFLUENZA VIRUS 4 NOT DETECTED; RHINOVIRUS/ENTEROVIRUS NOT DETECTED; RSV- RESP PCR PANEL NOT DETECTED; SARS-CoV-2 -RESP PCR PANEL NOT DETECTED
[2024-02-28] MEDS ORDERED: iohexoL-300 100 ML VIAL ONE (17:03)
[2024-02-28] MEDS: methylPREDNISolone SUCCINATE 125 MG/2 ML VIAL IVP STA (17:40)
[2024-02-28] MEDS: diphenhydrAMINE INJ 50 MG/ML VIAL IVP STA (17:41)
[2024-02-28] MEDS: iohexoL-300 100 ML VIAL IVP ONE (18:56)
[2024-02-28 19:26] VITALS: O2SAT 94
--- NOTE | 2024-02-28 19:26 | CT Report ---
PROCEDURE: Angio Chest INDICATIONS: rule out PE CONTRAST: 80ml [id number] TECHNIQUE: After the administration of intravenous contrast, 2 mm axial images were acquired from the pulmonary apices to the posterior costophrenic angles during the arterial phase. In addition, 1 mm lung kernel and 5 mm soft tissue kernel reconstructions were performed. 3-dimensional coronal oblique maximum int ensity projection (MIP) reformats, 8 mm axial MIP, and 5 mm coronal and sagittal MPR reformats were t hen performed through the thorax. For radiation dose reduction, the following was used: automated exp osure control, adjustment of mA and/or kV according to patient size. COMPARISON: Chest radiographs 02/28/2024. FINDINGS: Image quality: Excellent. Large vessels: No filling defects within the opacified pulmonary arteries, accounting for motion and contrast timing. No evidence of acute aortic syndrome or aortic aneurysm. Main pulmonary artery colby ures up to 3.1 cm in diameter, which can be seen in the setting of pulmonary arterial hypertension. R ight and left main pulmonary arteries also appear mildly prominent. Lungs and pleura: No consolidation. No pleural effusions. No pneumothorax. No suspicious pulmonary n odules which require follow up. Mediastinum: Heart size is enlarged. No pericardial effusion. No large vessel abnormality. No mediast inal adenopathy by size criteria. Chest wall and lower neck: Thyroid is unremarkable. No axillary or supraclavicular adenopathy by size . Bones: No aggressive osseous abnormality. Upper Abdomen: There is reflux of contrast material into the hepatic veins. Status post cholecystecto my. IMPRESSION: 1.No acute pulmonary embolus. 2.Cardiomegaly. 3.Main pulmonary artery measures 3.1 cm in diameter, which can be seen in the setting of pulmonary ar terial hypertension. Reviewed by: Adam Morfin MD on 02/28/2024 7:25 PM PDT Approved by: Adam Morfin MD on 02/28/2024 7:25 PM PDT Station ID: [id number]
[2024-02-28 20:04] VITALS: BP 183/78
== END 2024-02-28 20:03 | disposition home or self-care (01) ==
LOC: ED 09:22
DX: I51.7 Cardiomegaly (principal); I27.20 Pulmonary hypertension, unspecified; I48.91 Unspecified atrial fibrillation; G30.9 Alzheimer's disease, unspecified; F02.80 Dementia in other diseases classified elsewhere, unspecified severity, without behavioral disturbance, psychotic disturbance, mood disturbance, and anxiety; Z79.899 Other long term (current) drug therapy
CPT/HCPCS: 36415; 71045; 71275; 80053; 81003; 83690; 84484; 85025; 87633; 93005; 96374; 96375; 99284; J1200; Q9967; 81001; 87086

== ENCOUNTER 2025-06-21 09:15 | Inpatient (IN) ==
--- NOTE | 2025-06-21 10:11 | ED Physician Documentation ---
PD HPI Fall Stated complaint Stated Complaint: GLF/HIP PX Chief complaint Chief Complaint: General History obtained from History obtained from: Patient and Family Additional information Additional information: Fide gillette is an 89-year-old female resident of a memory care unit and this morning she was observed on camera to be getting out of bed and getting herself caught up in her nightgown and falling onto her left hip. She did not strike her head she is not taking blood thinners. She is complaining of severe pain to her left hip. She denies any current illness and she has an allergy to penicillins and aspirin. [place] Coma Scale Assess Eye opening: Spontaneous Verbal response: Confused Motor response: Obeys Commands Total score: 14 Review of Systems Patient denies any recent illness she denies any fever chills sweats cough sputum production nausea vomiting constipation diarrhea or urinary urgency frequency or dysuria. Meds/Allgy Home Medications Ambulatory Orders Medication Instructions Recorded Confirmed levothyroxine 88 mcg tablet 88 mcg PO QDAC 07/03/22 amlodipine 5 mg tablet 5 mg PO HS 02/28/24 06/21/25 mirtazapine 15 mg tablet 15 mg PO HS 02/28/24 5 acetaminophen 325 mg tablet 650 mg PO Q6H PRN pain 06/21/25 aluminum-mag hydroxide-simethicone 30 ml PO Q4HR PRN h eartburn 06/21/25 06/21/25 200 mg-200 mg-20 mg/5 mL oral susp (Antacid) atorvastatin 10 mg tablet 5 mg PO HS 06/21/25 06/21/25 carvedilol 3.125 mg tablet 3.125 mg PO BID 06/21/25 docusate sodium 100 mg capsule 100 mg PO DAILY PRN con stipation 06/21/25 06/21/25 hydralazine 100 mg tablet 100 mg PO TID 06/21/2506/21 loperamide 2 mg tablet 2 mg PO Q2H PRN loose stool 06/21/25 06/21/25 losartan 50 mg tablet 50 mg PO HS 06/21/25 5 magnesium hydroxide 400 mg/5 mL 30 ml PO DAILY PRN con stipation 06/21/25 06/21/25 oral suspension memantine 10 mg tablet 10 mg PO BID 06/21/25 nystatin 100,000 unit/gram topical 1 applic topical TI D PRN rash 06/21/25 06/21/25 powder (Nystop) Allergies Allergies Allergy/AdvReac Type Severity Reaction Status Date / Time aspirin Allergy Anaphylaxis Verified 06/21/25 09:18 Gadolinium-Containing Allergy Hives Verified 06/21/25 09:18 Contrast Medi iodine Allergy Hives Verified 06/21/25 09:18 Penicillins Allergy Anaphylaxis Verified 06/21/25 09:18 PFSH Active Problems All Active Problems (Updated 06/21/25 @ 15:39 by Daren Rick DO) Hypertension (Chronic) Femoral neck fracture (Acute) Medical History Medical History (Updated 06/21/25 @ 15:39 by Daren Rick DO) Dementia Social History Social History Smoking Status: Unknown if ever smoked Second hand tobacco smoke exposure: No Do you dip or chew tobacco?: No Do you vape?: No Level: Dependent Do you feel safe in your home environment?: Yes History of physical, verbal, emotional, or financial abuse?: No POLST Patient has POLST: No Exam Exam Vital Signs: Vital Signs x48h Temp Pulse Resp BP Pulse Ox 06/21/25 10:00 89 16 193/102 H 94 06/21/25 09:16 36.9 C 95 22 202/130 H 94 Pleasant 89-year-old female who answers questions appropriately and periodically complains of pain. Blood pressure is markedly elevated at 202/130 the remainder of the vitals are normal. Constitutional normal general appearance, no apparent distress, average body habitus, no limitations and alert HENMT normocephalic and head/scalp atraumatic Respiratory breath sounds equal bilaterally, normal respiratory effort and clear to auscultation bilaterally Cardiovascular normal heart rate noted, regular rhythm noted and no murmur Gastrointestinal abdomen normal to inspection and nontender to palpation Extremities The left leg is held in flexion there is pain to palpation of the trochanter there is a known fracture the leg is not moved further Psychiatry mental status grossly normal Skin skin color normal Results Vitals Vitals: Vital Signs - 24 hr 06/21/25 09:16 06/21/25 10:00 06/21/25 10:20 Temperature 36.9 C Temperature Source Temporal Artery Scan Pulse Rate 95 89 Respiratory Rate 22 16 Blood Pressure 202/130 H 193/102 H O2 Saturation 94 94 O2 Source Room air Room air Pain Intensity 10 8 06/21/25 11:00 Temperature Temperature Source Pulse Rate Respiratory Rate Blood Pressure O2 Saturation O2 Source Pain Intensity 3 Oxygen O2 Source Room air Labs Labs: Laboratory Tests 06/21/25 10:22 WBC 7.9 RBC 3.40 L Hgb 11.1 L Hct 34.6 L MCV 101.8 H MCH 32.6 H MCHC 32.1 RDW 14.1 Plt Count 223 MPV 9.4 Neut # (Auto) 6.8 H Lymph # (Auto) 0.[address] # (Auto) 0.4 Eos # (Auto) 0.1 Baso # (Auto) 0.0 Absolute Nucleated RBC 0.00 Nucleated RBC % 0.0 Sodium 135 Potassium 4.6 H Chloride 100 L Carbon Dioxide 29 Anion Gap 6.0 BUN 21 H Creatinine 1.2 Estimated GFR (MDRD) 42 L Glucose 119 H Calcium 8.9 Total Bilirubin 1.4 H AST 16 ALT 13 Alkaline Phosphatase 55 Total Protein 6.8 Albumin 3.7 Globulin 3.1 Albumin/Globulin Ratio 1.2 Lipase 32 Rads (name of study) hip: Relevant Findings:: EMP independent interpretation of test (femoral neck fracture, impacted. ) Interpretation: Impression: Impacted, left subcapital femoral neck fracture. PD Medical Decision Making ED course Complexity details: reviewed old records, reviewed results, re-evaluated patient, considered differential and d/w patient ED course: Fide Ortiz is an 89-year-old female who presents to the emergency department after a ground-level fall and fracture of her left hip. She has a left femoral neck fracture Discharge Plan Discharge Patient Disposition: [facility] DC/Xfer Clinical Impression: Femoral neck fracture Qualifiers: Encounter type: initial encounter Fracture type: closed Laterality: left Qualified Code(s): S72.002A - Fracture of unspecified part of neck of left femur, initial encounter for closed fracture Interventions: ED Admission Assessment Last Done: 06/21/25 12:35 Vitals documented within 30 minutes of discharge?: No (refused)
[2025-06-21] MEDS: KETOROLAC 30 MG/ML VIAL IVP STA (10:20)
[2025-06-21] MEDS: SODIUM CHLORIDE 0.9% 1,000 ML IV STA (10:20)
--- NOTE | 2025-06-21 10:21 | XRAY Report ---
PROCEDURE: XR Hip w/Pelvis 2-3V LT INDICATIONS: GLF hip pain short/rotated TECHNIQUE: 3 views of the hip were acquired. COMPARISON: None FINDINGS: Bones: Impacted, left subcapital femoral neck fracture is present. This results in a varus deformity. No femoral head dislocation. No other pelvic fractures. Degenerative changes in the lower lumbar spine. Soft tissues: No suspicious soft tissue calcifications or masses. Moderate peripheral vascular calcification. IMPRESSION: Impacted, left subcapital femoral neck fracture. Reviewed by: Yue Myers MD on 06/21/2025 10:17 AM PDT Approved by: Yue Myers MD on 06/21/2025 10:17 AM PDT Station ID: [id number]
[2025-06-21 10:27] LABS: HCT - HEMATOCRIT 34.6 % (37.0-47.0); HGB - HEMOGLOBIN 11.1 g/dL (12.0-16.0); MEAN PLATELET VOLUME 9.4 fL (7.9-10.8); NRBC ABSOLUTE COUNT (AUTO) 0.00 x10^3/uL; NUCLEATED RED BLOOD CELLS AUTO 0.0 /100WBC; PLT - PLATELET COUNT 223 10^3/uL (130-450); RED CELL DISTRIBUTION WIDTH 14.1 % (12.0-15.0)
[2025-06-21 10:41] LABS: ALT ALANINE AMINOTRANSFERASE 13.0 IU/L (10-60); AST ASPARTATE AMINOTRANSFERASE 16.0 IU/L (10-42); BUN - BLOOD UREA NITROGEN 21.0 mg/dL (6-20); CARBON DIOXIDE - CO2 29.0 mmol/L (21-32); CREATININE 1.2 mg/dL (0.6-1.3); GFR - MDRD 42.0 (>89)
--- OUTSIDE RECORDS SUMMARY | 2025-06-21 11:55 | EXTERNAL MEDICAL SUMMARY RPT | Continuity of Care Document ---
Author Organization [facility] Address [address] [place] [id number] Phone Results/Labs test date facility value unit notes Result panel 1 NUCLEATED RED BLOOD CELLS AUTO 2025-06-21 10:22 [facility] 0.0 /100wbc (missing) BASOPHILS # (AUTO) 2025-06-21 10:22 [facility] 0.0 10 3/ul (missing) NRBC ABSOLUTE COUNT (AUTO) 2025-06-21 10:22 [facility] 0.00 x10 3/ul (missing) EOSINOPHILS # (AUTO) 2025-06-21 10:22 [facility] 0.1 10 3/ul (missing) MONOCYTES # (AUTO) 2025-06-21 10:22 [facility] 0.4 10 3/ul (missing) LYMPHOCYTES # (AUTO) 2025-06-21 10:22 [facility] 0.5 10 3/ul (missing) ALBUMIN/GLOBULIN RATIO 2025-06-21 10:22 [facility] 1.2 (missing) (missing) CREATININE 2025-06-21 10:22 [facility] 1.2 mg/dl As of April 2023 testing method has changed, this may include reference ranges. BILIRUBIN,TOTAL 2025-06-21 10:22 [facility] 1.4 mg /dl As of April 2023 testing method has changed, this may include reference ranges. CHLORIDE 2025-06-21 10:22 [facility] 100 mmol/l As of April 2023 testing method has changed, this may include reference ranges. MEAN CORPUSCULAR VOLUME 2025-06-21 10:22 [facility] 101. 8 fl (missing) HGB - HEMOGLOBIN 2025-06-21 10:22 [facility] 11.1 g /dl (missing) GLUCOSE 2025-06-21 10:22 [facility] 119 mg/dl As of April 2023 testing method has changed, this may include reference ranges. ALT ALANINE AMINOTRANSFERASE 2025-06-21 10: [facility] ([facility] [place]) 13 iu/l As of April 2023 testing method has changed, this may include reference ranges. SODIUM 2025-06-21 10:22 [facility] ([facility] [place]) 135 mmol/l (missing) RED CELL DISTRIBUTION WIDTH 2025-06-21 10: [facility] ([facility] [place]) 14.1 % (missing) AST ASPARTATE AMINOTRANSFERASE 2025-06-21 10: [facility] ([facility] [place]) 16 iu/l As of April 2023 testing method has changed, this may include reference ranges. BUN - BLOOD UREA NITROGEN 2025-06-21 10:22 [facility] ([facility] [place]) 21 mg/dl As of Apr testing method has changed, this may include reference ranges. PLT - PLATELET COUNT 2025-06-21 10: [facility] ([facility] [place]) 223 10 3/ul (missing) CARBON DIOXIDE - CO2 2025-06-21 10: [facility] ([facility] [place]) 29 mmol/l As of April 2023 testing method has changed, this may include reference ranges. GLOBULIN 2025-06-21 10:22 [facility] ([facility] [place]) 3.1 g/dl (missing) RED BLOOD COUNT 2025-06-21 10: [facility] ([facility] [place]) 3.40 10 6/ul (missing) ALBUMIN 2025-06-21 10: [facility] ([facility] [place]) 3.7 g/dl As of April 2023 testing method has changed, this may include reference ranges. LIPASE 2025-06-21 10:22 [facility] ([facility] [place]) 32 u/l As of April 2023 testing method has changed, this may include reference ranges. MEAN CORPUSCULAR HGB CONC 2025-06-21 10:22 [facility] ([facility] [place]) 32.1 g/dl (missing) MEAN CORPUSCULAR HEMOGLOBIN 2025-06-21 10:22 [facility] ([facility] [place]) 32.6 pg (missing) HCT - HEMATOCRIT 2025-06-21 10:22 [facility] ([facility] [place]) 34.6 % (missing) POTASSIUM 2025-06-21 10:22 [facility] ([facility] [place] 4.6 mmol/l As of April 2023 testing method has changed, this may include reference ranges. GFR - MDRD 2025-06-21 10:22 [facility] ([facility] [place]) 42 (in g) Social History date description facility
[2025-06-21] MEDS: ONDANSETRON 4 MG/2 ML VIAL IVP STA (12:01)
[2025-06-21] MEDS: HYDROmorphone 1 MG/ML CARPUJECT IVP STA (12:01)
--- NOTE | 2025-06-21 13:46 | PHARMACY PROGRESS NOTE ---
Best Possible Medication History Admit Date and Time: 06/21/25 [id number] Home Medications Medication Instructions Recorded Confirmed Type levothyroxine 88 mcg tablet 88 mcg PO QDAC 07/03/22 History amlodipine 5 mg tablet 5 mg PO HS 02/28/24 06/21/25 History mirtazapine 15 mg tablet 15 mg PO HS 02/28/24 5 History acetaminophen 325 mg tablet 650 mg PO Q6H PRN pain 06/21/25 History aluminum-mag hydroxide-simethicone 30 ml PO Q4HR PRN h eartburn 06/21/25 06/21/25 History 200 mg-200 mg-20 mg/5 mL oral susp (Antacid) atorvastatin 10 mg tablet 5 mg PO HS 06/21/25 06/21/25 History carvedilol 3.125 mg tablet 3.125 mg PO BID 06/21/25 History docusate sodium 100 mg capsule 100 mg PO DAILY PRN con stipation 06/21/25 06/21/25 History hydralazine 100 mg tablet 100 mg PO TID 06/21/2506/21 History loperamide 2 mg tablet 2 mg PO Q2H PRN loose stool 06/21/25 06/21/25 History losartan 50 mg tablet 50 mg PO HS 06/21/25 5 History magnesium hydroxide 400 mg/5 mL 30 ml PO DAILY PRN con stipation 06/21/25 06/21/25 History oral suspension memantine 10 mg tablet 10 mg PO BID 06/21/25 History nystatin 100,000 unit/gram topical 1 applic topical TI D PRN rash 06/21/25 06/21/25 History powder (Nystop) Processed by: Pharmacy Medications reviewed in ED?: No Medication History completed: Yes Patient Interview: Pt unable to participate Secondary Source(s): Facility MAR as ONLY source (MAR from [facility]) [facility] Statement: As the person ultimately responsible for medication therapy, providers are able to order a medication from an existing home medication list in [facility] via the "Reconcile Routine" prior to Confirmation of that medication by office support specialist. Such practice is discouraged except when the physician, in their clinical judgment, deems that a medical need exists for a medication without regard to previous use.
[2025-06-21] MEDS: ACETAMINOPHEN 500 MG TABLET PO SCH (14:06)
--- NOTE | 2025-06-21 15:21 | HISTORY & PHYSICAL EXAMINATION ---
Chief Complaint Chief Complaint Chief Complaint: Ground level fall History of Present Illness Admitted From Admitted From:: ED History Obtained From Records Reviewed: [facility] History obtained from: Patient, daughter Exam Limitations: Patient has dementia History of Present Illness HPI Comment/Other: Fide Heath is an 89-year-old female with past medical history notable for hypertension, Alzheimer's dementia, hypothyroidism, and insomnia who presents following a ground-level fall at her facility. She is found to have a femoral neck fracture. She is admitted for left femoral neck fracture. Patient had a mechanical ground-level fall at her facility. She lives at a memory care facility. She got up from bed and tripped on her nightgown falling onto her left hip. She did not lose consciousness. She did not strike her head. She not feel dizzy prior to falling. She is not on any blood thinners. Apparently in the ED, she was having profound pain in her left hip. She does not remember the fall. Given her dementia, she she does not remember why her butt hurts. She is putting pressure on her left hip because he she says it makes it feel better. She is unable to bear any weight in the community. She denies any fevers or chills, dysuria, urinary frequency, diarrhea, nausea or vomiting. Otherwise she has a history of hypertension, this is managed with multiple agents. Apparently she was doing well in the outpatient community and has been back down on her hydralazine to twice daily from 3 times daily. Regarding her dementia, it is moderate. She has difficulty with completing some of her ADLs. She does feed herself, she dresses herself. She toilets and bathes with prompting. She is on memantine. Otherwise was started on mirtazapine by her primary care doctor for treatment of sleep disturbance in the setting of her dementia. Meds/Allgy Home Medications Ambulatory Orders Medication Instructions Recorded Confirmed levothyroxine 88 mcg tablet 88 mcg PO QDAC 07/03/22 amlodipine 5 mg tablet 5 mg PO HS 02/28/24 06/21/25 mirtazapine 15 mg tablet 15 mg PO HS 02/28/24 5 acetaminophen 325 mg tablet 650 mg PO Q6H PRN pain 06/21/25 aluminum-mag hydroxide-simethicone 30 ml PO Q4HR PRN h eartburn 06/21/25 06/21/25 200 mg-200 mg-20 mg/5 mL oral susp (Antacid) atorvastatin 10 mg tablet 5 mg PO HS 06/21/25 06/21/25 carvedilol 3.125 mg tablet 3.125 mg PO BID 06/21/25 docusate sodium 100 mg capsule 100 mg PO DAILY PRN con stipation 06/21/25 06/21/25 hydralazine 100 mg tablet 100 mg PO TID 06/21/2506/21 loperamide 2 mg tablet 2 mg PO Q2H PRN loose stool 06/21/25 06/21/25 losartan 50 mg tablet 50 mg PO HS 06/21/25 5 magnesium hydroxide 400 mg/5 mL 30 ml PO DAILY PRN con stipation 06/21/25 06/21/25 oral suspension memantine 10 mg tablet 10 mg PO BID 06/21/25 nystatin 100,000 unit/gram topical 1 applic topical TI D PRN rash 06/21/25 06/21/25 powder (Nystop) Allergies Allergies Allergy/AdvReac Type Severity Reaction Status Date / Time aspirin Allergy Anaphylaxis Verified 06/21/25 09:18 Gadolinium-Containing Allergy Hives Verified 06/21/25 09:18 Contrast Medi iodine Allergy Hives Verified 06/21/25 09:18 Penicillins Allergy Anaphylaxis Verified 06/21/25 09:18 PFSH Active Problems All Active Problems (Updated 06/21/25 @ 15:47 by Daren Rick DO) Pre-op evaluation (Acute) Hypertension (Chronic) Femoral neck fracture (Acute) Medical History Medical History (Updated 06/21/25 @ 15:47 by Daren Rick DO) Dementia Social History Social History (Updated 06/21/25 @ 15:47 by Iain Brownlee MD) Smoking Status: Unknown if ever smoked Second hand tobacco smoke exposure: No Do you dip or chew tobacco?: No Do you vape?: No Level: Dependent Do you feel safe in your home environment?: Yes History of physical, verbal, emotional, or financial abuse?: No POLST Patient has POLST: No Review of Systems Status of ROS: 10 or more systems reviewed and unremarkable except as noted in history and below Exam Exam Vital Signs: Vital Signs x48h Temp Pulse Pulse Resp BP BP Pulse Ox 06/21/25 13:14 36.7 C 107 H 28 H 156/98 H 95 06/21/25 10:00 89 16 193/102 H 94 06/21/25 09:16 36.9 C 95 22 202/130 H 94 O2 Flow Rate 06/21/25 13:14 4 06/21/25 10:00 06/21/25 09:16 GEN: No acute distress, lying in bed HEENT: NC/AT, normal appearance of external ears and nose. Hearing baseline and intact. Cardiac: Irregular rhythm, rate in the 90s. No murmurs appreciated. Patient grossly euvolemic. Pulm: Lungs CTA bilaterally, no cough, no wheezes Abdomen: Soft, nontender, nondistended. No rebound or guarding Extremities: Left lower extremity is shorter and slightly internally rotated. Warm and well-perfused. Normal tone. Palpable pulses in all extremities. Neuro: Face symmetric, CN II through XII intact grossly. No focal neurologic deficits. Psych: Mood euthymic with congruent affect. Forgetful. Pleasantly demented. Conclusion/Plan Problem List (1) Femoral neck fracture: Plan: From a mechanical ground-level fall. Patient had a trip over her nightgown while she was at her memory care facility. She landed on her left hip. She did not hit her head. She has a left subcapital femoral neck fracture noted on x-ray. She is having pain in the left hip, currently managed with meds. * Discussed case with Ortho, plan for or tomorrow afternoon * NPO at 8 AM * SCDs and SQH for VTE prophylaxis * Tylenol scheduled every 8 hours for pain * Breakthrough pain with oxycodone oral * Lidocaine patch topically * Defer PT eval until after surgery * Pure wick in place Qualifiers: Encounter type: initial encounter Fracture type: closed Laterality: l eft Qualified Code(s): S72.002A - Fracture of unspecified part of neck of left femur, initial encounter for closed fracture (2) Dementia: Plan: Moderate Alzheimer's dementia. Patient lives in memory care. She still is able to feed herself. She is still on memantine. She has some mood disturbance and insomnia necessitating nightly mirtazapine. She has done well with this. Only recently started. * Continue mirtazapine nightly * Will hold memantine * Delirium precautions, will try and maintain normal sleep-wake cycles * Patient likely to need further rehabilitation in SNF after surgery Qualifiers: Alzheimer's disease onset: late onset Dementia behavioral or psychological symptom: with mood disturbance Dementia severity: moderate D ementia type: Alzheimer's Qualified Code(s): G30.1 - Alzheimer's disease with late onset; F02.B3 - Dementia in other diseases classified elsewhere, moderate, with mood disturbance (3) Atrial fibrillation: Plan: Patient is rate controlled. Does have irregular rhythm on my auscultation. Notably she is not on any anticoagulation. Confirmed this with her med rec from her [facility] care [facility] * I have ordered an EKG * Continue to monitor, currently rate controlled Qualifiers: Atrial fibrillation type: longstanding persistent Qualified Code(s): I 48.11 - Longstanding persistent atrial fibrillation (4) Hypertension: Plan: Patient is profoundly hypertensive at times in the ED. This is coming down somewhat. Suspect largely driven by pain. She is on multiple antihypertensives prior to this admission. She is on Coreg, amlodipine, hydralazine and losartan. Per her daughter's report, she has been considered for reducing dose of hydralazine given how well her blood pressure has been controlled. Based on EMS report, it does not sound like she became orthostatic when she fell, more related to mechanical factors and tripping over her nightgown. * Continue Coreg 3.125 mg twice daily * Continue hydralazine 100 mg p.o. twice daily and amlodipine 5 mg nightly * Will give [employer] losartan given that her procedure is late in the day tomorrow Qualifiers: Hypertension type: primary hypertension Qualified Code(s): I10 - Essential (primary) hypertension (5) Pre-op evaluation: Plan: Patient's RCRI 0. No history of congestive heart failure or ischemic heart disease. From a pulmonary perspective, daughter does report that she has witnessed apneic episodes when she is sleeping, but no other STOP-BANG criteria She is requiring oxygen via nasal cannula at this time, precipitated by pain medications and respiratory suppression. She may need an extended postoperative evaluation. She has a charted history of pulmonary hypertension, but is not on medications otherwise. She has atrial fibrillation, but is not on any anticoagulation. Has not been for several years since she had a head strike after a fall and subsequent head bleed * Will start IS and try to wean off oxygen * Keep head of bed up * Patient otherwise optimized for procedure medically * NPO 8AM tomorrow Lab Results 06/21/25 10:22 06/21/25 10:22
[2025-06-21] MEDS: oxyCODONE 5 MG TABLET PO PRN (15:43)
[2025-06-21] MEDS: SODIUM CHLORIDE FLUSH 0.9% 10 ML SYRINGE IVP SCH (16:56)
[2025-06-21] MEDS: ATORVASTATIN 10 MG TABLET PO SCH (21:30)
[2025-06-21] MEDS: MIRTAZAPINE 15 MG TABLET PO SCH (21:31)
[2025-06-21] MEDS: LOSARTAN 50 MG TABLET PO SCH (21:31)
[2025-06-21] MEDS: HEPARIN 5,000 UNIT/ML VIAL SUBQ SCH (21:43)
[2025-06-22] MEDS: ONDANSETRON ODT 4 MG TABLET TL PRN (03:15)
[2025-06-22] MEDS: HYDROmorphone 0.5 MG/0.5 ML SYRINGE IVP PRN ×2 (03:31→20:32)
--- NOTE | 2025-06-22 08:09 | PROVIDER PROGRESS NOTE ---
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 She got 2 dose of Dilaudid this morning. She is very sleepy this morning. Blood pressure better controlled this morning. Outside of pain, she is not having any other concerns this morning. She is reminded several times that she is having surgery today. She again does not remember her fall yesterday. Denies any fevers, chills, dyspnea, abdominal pain, nausea or vomiting. Current Medications Current Medications Current Medications: Current Medications Generic Name Dose Route Start Last Admin Trade Name Freq PRN Reason Stop Dose Admin Acetaminophen 1,000 mg 06/21/25 14:00 06/22/25 03:15 Acetaminophen 500 Mg Tablet PO 1,000 mg Q8H JANETTE Administration Amlodipine Besylate 5 mg 06/21/25 21:00 06/21/25 21:43 Amlodipine 5 Mg Tablet PO 5 mg HS JANETTE Administration Atorvastatin Calcium 5 mg 06/21/25 21:00 06/21/25 21:30 Atorvastatin 10 Mg Tablet PO 5 mg HS JANETTE Administration Carvedilol 3.125 mg 06/21/25 21:00 06/21/25 21:31 Carvedilol 3.125 Mg Tablet PO 3.125 mg BID JANETTE Administration Docusate Sodium 100 mg 06/21/25 14:17 Docusate Sodium 100 Mg Capsule PO DAILY PRN Constipation Hydralazine HCl 100 mg 06/21/25 21:00 06/21/25 21:29 Hydralazine 25 Mg Tablet PO 100 mg BID JANETTE Administration Levothyroxine Sodium 88 mcg 06/22/25 07:00 Levothyroxine 88 Mcg Tablet PO QDAC JANETTE Lidocaine 1 patch 06/22/25 09:00 Lidocaine Patch 4% TOP DAILY JANETTE Losartan Potassium 50 mg 06/21/25 21:00 06/21/25 21:31 Losartan 50 Mg Tablet PO 50 mg HS JANETTE Administration Mirtazapine 15 mg 06/21/25 21:00 06/21/25 21:31 Mirtazapine 15 Mg Tablet PO 15 mg HS JANETTE Administration Nystatin 1 applic 06/21/25 14:17 Nystatin Powder 15 Gm TOP TID PRN rash Ondansetron HCl 4 mg 06/21/25 13:42 06/22/25 03:15 Ondansetron Odt 4 Mg Tablet TL 4 mg Q6HR PRN Administration Nausea / Vomiting Ondansetron HCl 4 mg 06/21/25 13:42 Ondansetron 4 Mg/2 Ml Vial IVP Q6HR PRN Nausea / Vomiting Oxycodone HCl 5 mg 06/21/25 13:42 06/22/25 03:16 Oxycodone 5 Mg Tablet PO 5 mg Q4HR PRN Administration Pain 5 to 7 Sodium Chloride 10 ml 06/21/25 13:40 Sodium Chloride Flush 0.9% 10 Ml Syringe IVP PRN PRN NEEDED PER PROVIDER ORDERS Sodium Chloride 10 ml 06/21/25 17:00 06/22/25 01:25 Sodium Chloride Flush 0.9% 10 Ml Syringe IVP 10 ml 0100,0900,1700 JANETTE Administration Objective Vital Signs/Intake & Output Intake & Output: Intake & Output 06/19/25 06/20/25 06/21/25 06/22/25 23:59 23:59 23:59 23:59 Intake Total 1000 / 1000 Output Total 250 / 250 50 / 50 Balance 750 / 750 -50 / -50 Weight (kg) 87 kg Objective Comments/Other: GEN: Patient grimacing. Not in extremis., lying in bed HEENT: NC/AT, normal appearance of external ears and nose. Hearing baseline and intact. Cardiac: Irregular rhythm, rate in the 80s. No murmurs appreciated. Patient grossly euvolemic, No visible JVP elevation. Pulm: Lungs CTA bilaterally, no cough, no wheezes. Patient moving air throughout her lung youssef. Abdomen: Soft, nontender, nondistended. No rebound or guarding Extremities: Left lower extremity is shorter and slightly internally rotated. Warm and well-perfused. Normal tone. Palpable pulses in all extremities. Neuro: Face symmetric, CN II through XII intact grossly. No focal neurologic deficits. Psych: Mood euthymic with congruent affect. Forgetful. Pleasantly demented. Lab Results 06/21/25 10:22 06/21/25 10:22 Other Labs: Lab Results x24hrs 06/21/25 Range/Units 10:22 WBC 7.9 (4.8-10.8) x10^3/uL RBC 3.40 L (4.20-5.40) 10^6/uL Hgb 11.1 L (12.0-16.0) g/dL Hct 34.6 L (37.0-47.0) % MCV 101.8 H (81.0-99.0) fL MCH 32.6 H (27.0-31.0) pg MCHC 32.1 (32.0-36.0) g/dL RDW 14.1 (12.0-15.0) % Plt Count 223 (130-450) 10^3/uL MPV 9.4 (7.9-10.8) fL Neut # (Auto) 6.8 H (1.5-6.6) 10^3/uL Lymph # (Auto) 0.5 L (1.5-3.5) 10^3/uL [place] # (Auto) 0.4 (0.0-1.0) 10^3/uL Eos # (Auto) 0.1 (0.0-0.7) 10^3/uL Baso # (Auto) 0.0 (0.0-0.1) 10^3/uL Absolute Nucleated RBC 0.00 x10^3/uL Nucleated RBC % 0.0 /100WBC Sodium 135 (135-145) mmol/L Potassium 4.6 H (3.5-4.5) mmol/L Chloride 100 L (101-111) mmol/L Carbon Dioxide 29 (21-32) mmol/L Anion Gap 6.0 (6-13) BUN 21 H (6-20) mg/dL Creatinine 1.2 (0.6-1.3) mg/dL Estimated GFR (MDRD) 42 L (>89) Glucose 119 H (74-104) mg/dL Calcium 8.9 (8.5-10.3) mg/dL Total Bilirubin 1.4 H (0.2-1.0) mg/dL AST 16 (10-42) IU/L ALT 13 (10-60) IU/L Alkaline Phosphatase 55 (42-121) IU/L Total Protein 6.8 (6.4-8.9) g/dL Albumin 3.7 (3.2-5.5) g/dL Globulin 3.1 (2.1-4.2) g/dL Albumin/Globulin Ratio 1.2 (1.0-2.2) Lipase 32 (11-82) U/L Assessment/Plan Problem List (1) Femoral neck fracture: Impression: Stable Pain worsened this morning after Toradol wore off yesterday. She received 2 doses of IV Dilaudid overnight with some increased somnolence and confusion. Plan for surgery later today. Recall that etiology of her fracture was from mechanical ground-level fall. She tripped on her nightgown. She has x-ray confirmed a left subcapital femoral neck fracture. * Plan for OR later today, patient n.p.o. as of now. * Starting on D5 half NS * Continue SCDs today * Scheduled Tylenol for pain * Adding scheduled oxycodone every 6 hours 5 mg * Breakthrough with Toradol 15 mg IV * Topical lidocaine patch * PT eval after surgery * Unclear what will do for VTE prophylaxis after surgery, likely low-dose DOAC. She has a listed allergy to aspirin. Qualifiers: Encounter type: initial encounter Fracture type: closed Laterality: l eft Qualified Code(s): S72.002A - Fracture of unspecified part of neck of left femur, initial encounter for closed fracture (2) Dementia: Impression: Stable Moderate Alzheimer's dementia. Patient lives in memory care. She still is able to feed herself. She is still on memantine. She has some mood disturbance and insomnia necessitating nightly mirtazapine. She has done well with this. Only recently started. * Continue mirtazapine nightly * Will hold memantine * Delirium precautions, will try and maintain normal sleep-wake cycles * Patient likely to need further rehabilitation in SNF after surgery Qualifiers: Alzheimer's disease onset: late onset Dementia behavioral or psychological symptom: with mood disturbance Dementia severity: moderate D ementia type: Alzheimer's Qualified Code(s): G30.1 - Alzheimer's disease with late onset; F02.B3 - Dementia in other diseases classified elsewhere, moderate, with mood disturbance (3) Atrial fibrillation: Impression: Patient is rate controlled. Does have irregular rhythm on my auscultation, Confirmed on EKG after admission. Notably she is not on any anticoagulation. Her daughter seems to remember that after she had several falls, that she was taken off of anticoagulation because of her increased bleeding risk. This was several years ago. Qualifiers: Atrial fibrillation type: longstanding persistent Qualified Code(s): I 48.11 - Longstanding persistent atrial fibrillation (4) Hypertension: Impression: IMPROVED Blood pressure improved with pain control. She has been intermittently hypertensive sometimes with systolics up into the 180s and 190s. This seems to be mostly related to pain. She additionally missed all of her antihypertensives from her facility prior to arrival. She is on multiple antihypertensives prior to this admission. She is on Coreg, amlodipine, hydralazine and losartan. Per her daughter's report, she has been considered for reducing dose of hydralazine (TID>BID) given how well her blood pressure has been controlled. Based on EMS report, it does not sound like she became orthostatic when she fell, more related to mechanical factors and tripping over her nightgown. * Continue Coreg 3.125 mg twice daily * Continue hydralazine 100 mg p.o. twice daily and amlodipine 5 mg nightly * Given her afternoon procedure, she got nightly losartan on the evening of 06/21. Qualifiers: Hypertension type: primary hypertension Qualified Code(s): I10 - Essential (primary) hypertension (5) Pre-op evaluation: Impression: Patient's RCRI 0. No history of congestive heart failure or ischemic heart disease. From a pulmonary perspective, daughter does report that she has witnessed apneic episodes. Overall her STOP-BANG score is 3. She does have a high risk of SAURABH. Never been dx/treated. She is requiring oxygen via nasal cannula at this time, precipitated by pain medications and respiratory suppression. She may need an extended postoperative evaluation. She has a charted history of pulmonary hypertension, but is not on medications or needed oxygen in the past otherwise. She has atrial fibrillation, but is not on any anticoagulation. Has not been for several years since she had a head strike after a fall and subsequent head bleed * Continue IS and try to wean off oxygen * May need increased oxygen support after surgery * SAURABH evaluation might be a little futile given her dementia will make compliance with CPAP difficult. * Keep head of bed up, Somewhat limited by hip pain * Patient otherwise optimized for procedure medically
[2025-06-22] MEDS: LEVOTHYROXINE 88 MCG TABLET PO SCH (08:31)
[2025-06-22] MEDS: DEXTROSE 5%-0.45% NACL 1,000 ML IV STA (09:07)
[2025-06-22] MEDS: oxyCODONE 5 MG TABLET PO SCH (09:15)
[2025-06-22] MEDS: KETOROLAC 15 MG/ML VIAL IVP PRN (10:38)
--- NOTE | 2025-06-22 13:20 | ANESTHESIA PROCEDURE NOTE ---
Pre-Anesthesia VS, & Labs Diagnosis Surgical Diagnosis:: left femoral neck fracture Procedure Procedure: left hemiarthroplasty Vitals Vital Signs: Temp Pulse Resp BP Pulse Ox O2 Flow Rate 37.1 C 84 20 125/52 L 95 2 06/22/25 08:40 06/22/25 08:40 06/22/25 08:40 06/22/25 08:40 06/22/25 08:40 06/22/25 08:40 Is Patient ?: No Lab Results Current Lab Results: Laboratory Tests 06/21/25 10:22: WBC 7.9, RBC 3.40 L, Hgb 11.1 L, Hct 34.6 L, MCV 101.8 H, MCH 32.6 H, MCHC 32.1, RDW 14.1, Plt Count 223, MPV 9.4, Neut # (Auto) 6.8 H, Lymph # (Auto) 0.5 L, [place] # (Auto) 0.4, Eos # (Auto) 0.1, Baso # (Auto) 0.0, Absolute Nucleated RBC 0.00, Nucleated RBC % 0.0, Sodium 135, Potassium 4.6 H, Chloride 100 L, Carbon Dioxide 29, Anion Gap 6.0, BUN 21 H, Creatinine 1.2, Estimated GFR (MDRD) 42 L, Glucose 119 H, Calcium 8.9, Total Bilirubin 1.4 H, AST 16, ALT 13, Alkaline Phosphatase 55, Total Protein 6.8, Albumin 3.7, Globulin 3.1, Albumin/Globulin Ratio 1.2, Lipase 32 06/21/25 10:22 06/21/25 10:22 Meds/Allgy Home Medications Ambulatory Orders Medication Instructions Recorded Confirmed levothyroxine 88 mcg tablet 88 mcg PO QDAC 07/03/22 amlodipine 5 mg tablet 5 mg PO HS 02/28/24 06/21/25 mirtazapine 15 mg tablet 15 mg PO HS 02/28/24 5 acetaminophen 325 mg tablet 650 mg PO Q6H PRN pain 06/21/25 aluminum-mag hydroxide-simethicone 30 ml PO Q4HR PRN h eartburn 06/21/25 06/21/25 200 mg-200 mg-20 mg/5 mL oral susp (Antacid) atorvastatin 10 mg tablet 5 mg PO HS 06/21/25 06/21/25 carvedilol 3.125 mg tablet 3.125 mg PO BID 06/21/25 docusate sodium 100 mg capsule 100 mg PO DAILY PRN con stipation 06/21/25 06/21/25 hydralazine 100 mg tablet 100 mg PO TID 06/21/2506/21 loperamide 2 mg tablet 2 mg PO Q2H PRN loose stool 06/21/25 06/21/25 losartan 50 mg tablet 50 mg PO HS 06/21/25 5 magnesium hydroxide 400 mg/5 mL 30 ml PO DAILY PRN con stipation 06/21/25 06/21/25 oral suspension memantine 10 mg tablet 10 mg PO BID 06/21/25 nystatin 100,000 unit/gram topical 1 applic topical TI D PRN rash 06/21/25 06/21/25 powder (Nystop) Allergies Allergies Allergy/AdvReac Type Severity Reaction Status Date / Time aspirin Allergy Anaphylaxis Verified 06/21/25 09:18 Gadolinium-Containing Allergy Hives Verified 06/21/25 09:18 Contrast Medi iodine Allergy Hives Verified 06/21/25 09:18 Penicillins Allergy Anaphylaxis Verified 06/21/25 09:18 PFSH Active Problems All Active Problems (Updated 06/22/25 @ 08:49 by Daren Rick DO) Dementia (Chronic) Atrial fibrillation (Chronic) Pre-op evaluation (Acute) Hypertension (Chronic) Femoral neck fracture (Acute) Social History Social History (Updated 06/21/25 @ 15:47 by Iain Brownlee MD) Smoking Status: Unknown if ever smoked Second hand tobacco smoke exposure: No Do you dip or chew tobacco?: No Do you vape?: No Level: Dependent Home Mobility Equipment: Walker Do you feel safe in your home environment?: Yes History of physical, verbal, emotional, or financial abuse?: No POLST Patient has POLST: No Anesthesia Exam (Expanded) Exam General: Mild distress and Other (baseline dementia) Dental: WNL Mouth Openin Fingerbreadth Neck Mobility: Reduced Mallampati classification: III Thyromental Distance: less than 4 cm Respiratory: Lungs clear Cardiovascular: Regular rate Exam Exam Vital Signs: Vital Signs x48h Temp Pulse Resp BP Pulse Ox O2 Flow Rate 06/22/25 08:40 2 06/22/25 08:40 37.1 C 84 20 125/52 L 95 2 Plan Problem List (1) Femoral neck fracture: Plan: From a mechanical ground-level fall. Patient had a trip over her nightgown while she was at her memory care facility. She landed on her left hip. She did not hit her head. She has a left subcapital femoral neck fracture noted on x-ray. She is having pain in the left hip, currently managed with meds. * Discussed case with Ortho, plan for or tomorrow afternoon * NPO at 8 AM * SCDs and SQH for VTE prophylaxis * Tylenol scheduled every 8 hours for pain * Breakthrough pain with oxycodone oral * Lidocaine patch topically * Defer PT eval until after surgery * Pure wick in place Qualifiers: Encounter type: initial encounter Fracture type: closed Laterality: l eft Qualified Code(s): S72.002A - Fracture of unspecified part of neck of left femur, initial encounter for closed fracture (2) Dementia: Plan: Moderate Alzheimer's dementia. Patient lives in memory care. She still is able to feed herself. She is still on memantine. She has some mood disturbance and insomnia necessitating nightly mirtazapine. She has done well with this. Only recently started. * Continue mirtazapine nightly * Will hold memantine * Delirium precautions, will try and maintain normal sleep-wake cycles * Patient likely to need further rehabilitation in SNF after surgery Qualifiers: Alzheimer's disease onset: late onset Dementia behavioral or psychological symptom: with mood disturbance Dementia severity: moderate D ementia type: Alzheimer's Qualified Code(s): G30.1 - Alzheimer's disease with late onset; F02.B3 - Dementia in other diseases classified elsewhere, moderate, with mood disturbance (3) Atrial fibrillation: Plan: Patient is rate controlled. Does have irregular rhythm on my auscultation. Notably she is not on any anticoagulation. Confirmed this with her med rec from her memory care facility * I have ordered an EKG * Continue to monitor, currently rate controlled Qualifiers: Atrial fibrillation type: longstanding persistent Qualified Code(s): I 48.11 - Longstanding persistent atrial fibrillation (4) Hypertension: Plan: Patient is profoundly hypertensive at times in the ED. This is coming down somewhat. Suspect largely driven by pain. She is on multiple antihypertensives prior to this admission. She is on Coreg, amlodipine, hydralazine and losartan. Per her daughter's report, she has been considered for reducing dose of hydralazine given how well her blood pressure has been controlled. Based on EMS report, it does not sound like she became orthostatic when she fell, more related to mechanical factors and tripping over her nightgown. * Continue Coreg 3.125 mg twice daily * Continue hydralazine 100 mg p.o. 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 No history of congestive heart failure or ischemic heart disease. From a pulmonary perspective, daughter does report that she has witnessed apneic episodes when she is sleeping, but no other STOP-BANG criteria She is requiring oxygen via nasal cannula at this time, precipitated by pain medications and respiratory suppression. She may need an extended postoperative evaluation. She has a charted history of pulmonary hypertension, but is not on medications otherwise. She has atrial fibrillation, but is not on any anticoagulation. Has not been for several years since she had a head strike after a fall and subsequent head bleed * Will start IS and try to wean off oxygen * Keep head of bed up * Patient otherwise optimized for procedure medically * NPO 8AM tomorrow Plan Anesthesia Type: General and Fascia Iliaca Block Consent for Procedure(s) Verified and Reviewed: Yes Code Status: Attempt Resuscitation ASA Classification ASA classification: 3-Severe systemic disease Is this case an emergency?: Yes
[2025-06-22] MEDS ORDERED: BUPIVACAINE 0.25% PF 30 ML VIAL ONE (13:22)
[2025-06-22] MEDS ORDERED: PROPOFOL 200 MG/20 ML VIAL IVP ONE (13:51)
[2025-06-22] MEDS ORDERED: ROCURONIUM 50 MG/5 ML VIAL ONE (13:52)
[2025-06-22] MEDS ORDERED: TRANEXAMIC ACID 1,000 MG/10 ML VIAL ONE ×2 (13:54→15:38)
[2025-06-22] MEDS ORDERED: fentaNYL 100 MCG/2 ML VIAL ONE (13:54)
--- NOTE | 2025-06-22 13:56 | Preop H&P Attestation ---
Preop H&P Attestation Preop History & Physical Preop H&P Date: 06/21/25 History & Physical Reviewed and patient examined today.: No change
[2025-06-22] MEDS ORDERED: CLINDAMYCIN 900 MG/50 ML 900 MG/50 ML BAG IV ONE (14:02)
[2025-06-22] MEDS ORDERED: CLINDAMYCIN 900 MG/50 ML 900 MG/50 ML BAG IV SCH (14:10)
[2025-06-22] MEDS ORDERED: LACTATED RINGERS 1,000 ML IV PRN (14:10)
[2025-06-22] MEDS ORDERED: ePHEDrine 50 MG/ML VIAL IVP ONE (14:35)
[2025-06-22] MEDS ORDERED: METOCLOPRAMIDE 10 MG/2 ML VIAL IVP PRN (15:10)
[2025-06-22] MEDS ORDERED: ATROPINE ABBOJECT 1 MG/10 ML SYRINGE IVP PRN (15:10)
[2025-06-22] MEDS ORDERED: MORPHINE 2 MG/ML CARPUJECT IVP PRN (15:10)
[2025-06-22] MEDS ORDERED: ePHEDrine 50 MG/ML VIAL IVP PRN (15:10)
[2025-06-22] MEDS ORDERED: HYDROmorphone 0.5 MG/0.5 ML SYRINGE IVP PRN ×2 (15:10→20:25)
[2025-06-22] MEDS ORDERED: fentaNYL 100 MCG/2 ML VIAL IVP PRN (15:10)
[2025-06-22] MEDS ORDERED: ONDANSETRON 4 MG/2 ML VIAL IVP PRN (15:10)
[2025-06-22] MEDS ORDERED: NALOXONE 0.4 MG/ML VIAL IVP PRN (15:10)
[2025-06-22] MEDS ORDERED: ACETAMINOPHEN 1,000 MG/100 ML 1,000 MG/100 ML BAG IV ONE (15:25)
--- NOTE | 2025-06-22 16:12 | OPERATIVE REPORT ---
Operative Report General Admit Date: 06/21/25 Procedure Data: Operation Date: 06/22/25 14:00 Proposed Procedures p Hip HemiARTHROPLASTY(Left) - Wilian Martines DO Anesthesia Type General Case Staff Anesthesia Provider: Winifred Sheppard Rep: Daniel Chin, [employer] Case Times Procedure Start: 06/22/25 15:01 Time out: 06/22/25 15:00 Implants STEM FEM TAPERLOC [id number] HEAD COCR 28MM -[id number] Pre-Op Diagnosis: Left hip femoral neck fracture Post Op Diagnosis: Left hip femoral neck fracture Procedure Note Estimated Blood Loss (ml): 250 Indications: Left hip femoral neck fracture Complications: None Other Other Information/Narrative: The patient was taken to the operative suite and after undergoing a general anesthetic she was placed in the lateral position with the left hip exposed the left hip was prepped and draped in the usual sterile fashion. Approximately 15 cm incision was made over the left hip and dissection was taken down to the level of the tensor fascia heydi. This was incised longitudinally and then the Charnley was put in place we identified the gluteus medius and minimus and we elevated these off of its insertion site on the greater trochanter. We then were able to visualize the fracture. We measured about 5 to 6 mm above the lesser trochanter and then made a fresh femoral neck cut. Once that was done we had more access into the femur and we were able to get the skin into the acetabulum and get the femoral head out. We sized the femoral head to be a 49 mm head. We then went ahead and started concentric broaching and we started with a 4 mm went by twos up until 8 mm and then we went by once up until 12 mm and we put in a 12 mm stem. We trialed the different neck lengths and the -6 neck length was the most appropriate so we put this on and we inserted it onto the stem without any complication. Once the prosthesis was fully in place and the head was fully in place we took it through a full range of motion it was found to be incredibly stable we went ahead and did a thorough irrigation we closed the gluteus medius and minimus with a #5 Ethibond drilling 3 holes through the greater trochanter and then we went ahead and oversewed it with a #1 Ethibond we then closed the tensor fascia heydi with a strata fix and we closed the subcutaneous tissue with a 2-0 Vicryl the skin was closed with trina and a sterile dressing was applied. The patient was awakened and transferred stable to recovery room
[2025-06-22] MEDS ORDERED: SUGAMMADEX 200 MG/2 ML VIAL IVP ONE (16:28)
--- NOTE | 2025-06-22 17:06 | ANESTHESIA POST OP EVALUATION ---
Anesthesia Post Eval Post Anesthesia Eval Vitals: Last Vital Signs Temp 36.2 C L 06/22/25 16:55 Pulse 71 06/22/25 16:55 Resp 18 06/22/25 16:55 BP 86/45 L 06/22/25 16:55 Pulse Ox 90 L 06/22/25 16:55 O2 Flow Rate 2 06/22/25 08:40 CV Function Including HR & BP: Stable Pain Control: Satisfactory Nausea & Vomiting: Negative Mental Status: Baseline Respiratory Status: Airway Patent Hydration Status: Satisfactory Anesthesia Complications: None
[2025-06-22] MEDS ORDERED: SODIUM CHLORIDE FLUSH 0.9% 10 ML SYRINGE IVP PRN (17:48)
[2025-06-22] MEDS: LACTATED RINGERS 1,000 ML IV SCH (18:38)
[2025-06-22] MEDS ORDERED: SODIUM CHLORIDE 0.9% 500 ML IV ONE (19:21)
[2025-06-22] MEDS: SODIUM CHLORIDE 0.9% 500 ML IV ONE (19:27)
--- NOTE | 2025-06-22 20:32 | PROVIDER PROGRESS NOTE ---
Progress Note Progress Note Progress Note: 89-year-old female who is postop day 0 repair of left hip fracture had some bleeding in the postanesthesia care unit, from her incision. Incisional dressing was replaced. She was then transferred back to the floor where she was noted to have blood pressures in the 80s to 90s over 40s. She has beta blocked at baseline and therefore is not tachycardic. She has had minimal urine output since transfer from the operating room. She has a Lucas in place. She is confused but that is her baseline. Her daughter says it is hard to tell if she is more confused than normal. She is not running any fever I gave the patient a 500 cc bolus of IV fluids and this did not significantly change her pressure. She continues to be in pain and the nurses are concerned about giving her pain medication in the setting of hypotension. This patient has postoperative hypotension in the setting of some blood loss, intraoperative is estimated to be 250 mL with I would say less than 100 mL lost in bleeding of the wound. She does not have a history of congestive heart failure but does she does have a history of atrial fibrillation. I am transferring this patient to the ICU for institution of Levophed and close monitoring of her vital signs and intake and output. I anticipate that this is related to antihypertensives given earlier in the day, postanesthesia, blood loss. Will continue to monitor overnight.
[2025-06-22] MEDS: NOREPINEPHRINE/0.9 % NS 8 MG/250 ML BAG IV SCH (21:12)
[2025-06-22] MEDS: DEXTROSE 5%-0.45% NACL 1,000 ML IV SCH (21:13)
[2025-06-22] MEDS: HEPARIN 5,000 UNIT/ML VIAL SUBQ SCH (22:18)
[2025-06-22] MEDS: ACETAMINOPHEN 1,000 MG/100 ML 1,000 MG/100 ML BAG IV SCH (22:18)
[2025-06-23] MEDS: SODIUM CHLORIDE FLUSH 0.9% 10 ML SYRINGE IVP PRN (00:54)
[2025-06-23] MEDS ORDERED: SODIUM CHLORIDE FLUSH 0.9% 10 ML SYRINGE IVP SCH (01:00)
[2025-06-23] MEDS: ACETAMINOPHEN 1,000 MG/100 ML 1,000 MG/100 ML BAG IV SCH ×2 (03:40→17:55)
[2025-06-23 04:40] LABS: HCT - HEMATOCRIT 28.2 % (37.0-47.0); HGB - HEMOGLOBIN 8.8 g/dL (12.0-16.0); MEAN PLATELET VOLUME 9.9 fL (7.9-10.8); NRBC ABSOLUTE COUNT (AUTO) 0.02 x10^3/uL; NUCLEATED RED BLOOD CELLS AUTO 0.1 /100WBC; PLT - PLATELET COUNT 229 10^3/uL (130-450); RED CELL DISTRIBUTION WIDTH 14.5 % (12.0-15.0)
[2025-06-23 04:46] LABS: VBG PH 7.293 (7.31-7.41)
[2025-06-23 04:58] LABS: BUN - BLOOD UREA NITROGEN 34.0 mg/dL (6-20); CARBON DIOXIDE - CO2 23.0 mmol/L (21-32); CREATININE 2.4 mg/dL (0.6-1.3); GFR - MDRD 19.0 (>89); PHOSPHORUS 6.2 mg/dL (2.5-5.0)
[2025-06-23] MEDS: oxyCODONE 5 MG TABLET PO PRN (06:33)
--- NOTE | 2025-06-23 08:18 | PROVIDER PROGRESS NOTE ---
Subjective Prog Note Date Prog Note Date: 06/23/25 Prog Note Time: 08:17 Subjective Pt reports feeling: Improved Subjective: Patient became hypotensive postoperatively last night. She received 500 mL fluid bolus. Remained hypotensive. She was started on Levophed last night. This morning she is on 18 mcg of Levophed and barely holding her pressures. She has a leukocytosis and is mildly more anemic. Her hemoglobin is still greater than 7. She was transferred to the ICU last night to start on pressors. She remains alert today. Labs this morning reveal lactic acidosis though mild. She is requiring more fluids and has vascular access issues. She was given 1 L bolus this morning and a central line was placed. See separate documents. She remains quite somnolent, but rouses and is seem to be mentating normally. Her extremities are well-perfused and warm. Her heart rate is in the 90s to 100s. Unfortunately she had a lot of nausea while placing central line, she likely aspirated some. She continues to be fairly nauseous this morning. Multiple discussions with her family today. She is in guarded condition, but we are going to try and medically manage her. If she is to further decompensate, they again reiterate that she would not want to be intubated. Current Medications Current Medications Current Medications: Current Medications Generic Name Dose Route Start Last Admin Trade Name Freq PRN Reason Stop Dose Admin Amlodipine Besylate 5 mg 06/21/25 21:00 06/22/25 21:39 Amlodipine 5 Mg Tablet PO Not Given HS JANETTE Aspirin 650 mg 06/23/25 09:00 Aspirin Ec 325 Mg Tablet PO DAILY JANETTE Atorvastatin Calcium 5 mg 06/21/25 21:00 06/22/25 21:40 Atorvastatin 10 Mg Tablet PO Not Given HS JANETTE Carvedilol 3.125 mg 06/21/25 21:00 06/22/25 21:40 Carvedilol 3.125 Mg Tablet PO Not Given BID JANETTE Docusate Sodium 100 mg 06/21/25 14:17 Docusate Sodium 100 Mg Capsule PO DAILY PRN Constipation Heparin Sodium (Porcine) 5,000 unit 06/22/25 21:00 06/22/25 22:18 Heparin 5,000 Unit/Ml Vial SUBQ 5,000 unit BID JANETTE Administration Hydralazine HCl 100 mg 06/21/25 21:00 06/22/25 21:56 Hydralazine 25 Mg Tablet PO Not Given BID JANETTE Hydromorphone HCl 0.5 mg 06/22/25 20:23 06/23/25 06:49 Hydromorphone 0.5 Mg/0.5 Ml Syringe IVP 0.5 mg Q2H PRN Administration Severe Pain (Level 7-10) Norepinephrine/Sodium Chloride 8 mg in 250 mls @ 15 mls/hr 06/22/25 21:00 06/23/25 05:17 Levophed 8 Mg/250-0.9% Nacl IV 18 mcg/min .[id number] JANETTE 33.75 mls/hr Protocol Administration 8 MCG/MIN Dextrose/Sodium Chloride 1,000 mls @ 75 mls/hr 06/22/25 21:00 06/22/25 21:13 D5.45ns IV 75 mls/hr .[id number] JANETTE Administration Acetaminophen 1,000 mg in 100 mls @ 400 mls/hr 06/23/25 04:00 06/23/25 03:55 Acetaminophen IV Infused Q6HR JANETTE Infusion Levothyroxine Sodium 88 mcg 06/22/25 07:00 06/23/25 06:34 Levothyroxine 88 Mcg Tablet PO 88 mcg QDAC JANETTE Administration Lidocaine 1 patch 06/22/25 09:00 06/22/25 09:16 Lidocaine Patch 4% TOP 1 patch DAILY JANETTE Administration Losartan Potassium 50 mg 06/21/25 21:00 06/22/25 21:56 Losartan 50 Mg Tablet PO Not Given HS JANETTE Mirtazapine 15 mg 06/21/25 21:00 06/22/25 21:57 Mirtazapine 15 Mg Tablet PO Not Given HS JANETTE Nystatin 1 applic 06/21/25 14:17 Nystatin Powder 15 Gm TOP TID PRN rash Ondansetron HCl 4 mg 06/21/25 13:42 06/22/25 03:15 Ondansetron Odt 4 Mg Tablet TL 4 mg Q6HR PRN Administration Nausea / Vomiting Ondansetron HCl 4 mg 06/21/25 13:42 Ondansetron 4 Mg/2 Ml Vial IVP Q6HR PRN Nausea / Vomiting Oxycodone HCl 5 mg 06/22/25 22:00 06/23/25 06:33 Oxycodone 5 Mg Tablet PO 5 mg Q4HR PRN Administration Moderate Pain (Level 4-6) Sodium Chloride 10 ml 06/21/25 13:40 06/23/25 00:54 Sodium Chloride Flush 0.9% 10 Ml Syringe IVP 10 ml PRN PRN Administration NEEDED PER PROVIDER ORDERS Sodium Chloride 10 ml 06/21/25 17:00 06/22/25 22:20 Sodium Chloride Flush 0.9% 10 Ml Syringe IVP 10 ml 0100,0900,1700 JANETTE Administration Objective Vital Signs/Intake & Output Reviewed Vital Signs: Yes Vital Signs: Vital Signs x48h Temp Pulse Resp BP Pulse Ox O2 Flow Rate 06/23/25 07:00 96 20 106/52 L 94 1 06/23/25 06:00 36.5 C 85 10 L 94/50 L 95 1 06/23/25 05:00 102 H 19 119/76 94 1 06/23/25 04:00 103 H 17 102/66 94 1 06/23/25 03:00 96 12 114/61 96 1 06/23/25 02:00 100 15 99/57 L 97 1 06/23/25 01:00 108 H 23 93/47 L 100 1 06/23/25 00:45 107 H 26 H 121/82 98 1 06/23/25 00:30 107 H 21 119/60 95 1 Intake & Output: Intake & Output 06/20/25 06/21/25 06/22/25 06/23/25 23:59 23:59 23:59 23:59 Intake Total 1000 / 1000 2179 / 2179 433 / 433 Output Total 250 / 250 210 / 210 54 / 54 Balance 750 / 750 1968 379 / 379 Weight (kg) 87 kg Objective Comments/Other: GEN: Nauseous, somnolent. Arouses to voice. Toxic appearing HEENT: NC/AT, normal appearance of external ears and nose. Hearing baseline and intact. Cardiac: Irregular rhythm, rate in the 90s to 100s. No murmurs. No visible JVP elevation. Pulm: Diffuse rhonchi appreciated earlier today, clear with her cough. No appreciable wheezing. She is breathing comfortably on 2 to 3 L with sats in the high 90s. Abdomen: Soft, nontender, nondistended. No rebound or guarding Extremities: Expected postoperative changes in left lower extremity. No purulence or drainage around her surgical wounds. Neuro: Face symmetric, CN II through XII intact grossly. No focal neurologic deficits. Psych: Somnolent, but arousable. Mood euthymic. Lab Results 06/23/25 04:34 06/23/25 04:34 Other Labs: Lab Results x24hrs 06/23/25 06/23/25 06/22/25 Range/Units 04:34 01:29 21:15 WBC 17.8 H (4.8-10.8) x10^3/uL RBC 2.60 L (4.20-5.40) 10^6/uL Hgb 8.8 L 8.6 L (12.0-16.0) g/dL Hct 28.2 L (37.0-47.0) % MCV 108.5 H (81.0-99.0) fL MCH 33.8 H (27.0-31.0) pg MCHC 31.2 L (32.0-36.0) g/dL RDW 14.5 (12.0-15.0) % Plt Count 229 (130-450) 10^3/uL MPV 9.9 (7.9-10.8) fL Neut # (Auto) 16.4 H (1.5-6.6) 10^3/uL Lymph # (Auto) 0.6 L (1.5-3.5) 10^3/uL [place] # (Auto) 0.5 (0.0-1.0) 10^3/uL Eos # (Auto) 0.0 (0.0-0.7) 10^3/uL Baso # (Auto) 0.1 (0.0-0.1) 10^3/uL Absolute Nucleated RBC 0.02 x10^3/uL Nucleated RBC % 0.1 /100WBC VBG pH 7.293 L (7.31-7.41) Ionized Calcium 1.06 L (1.09-1.30) mmol/L Sodium 130 L (135-145) mmol/L Potassium 5.4 H (3.5-4.5) mmol/L Chloride 99 L (101-111) mmol/L Carbon Dioxide 23 (21-32) mmol/L Anion Gap 8.0 (6-13) BUN 34 H (6-20) mg/dL Creatinine 2.4 H (0.6-1.3) mg/dL Estimated GFR (MDRD) 19 L (>89) Glucose 190 H (74-104) mg/dL Calcium 7.7 L (8.5-10.3) mg/dL Phosphorus 6.2 H (2.5-5.0) mg/dL Magnesium 2.1 (1.7-2.3) mg/dL Nasal Screen MRSA (PCR) NEGATIVE (NEGATIVE) Sepsis Event Note (H) Evaluation Current Stage of Sepsis: Septic shock Possible source of Sepsis: positive Unknown Sepsis Criteria Sepsis Criteria: WBC count greater than 12,000 or less than 4000, MAP less than 65 mmHg and Metabolic: lactate > 2 mmol/L Assessment/Plan Problem List (1) Shock: Impression: Ongoing, critical As of yet this is undifferentiated shock. Suspected initially for hypovolemic shock given her recent surgery, however her modest drop in hemoglobin does not fully support this. She got fluid resuscitation with only minimal effect. She has been started on Levophed. Her elevated leukocytosis this morning as well as elevated lactate is suggestive of septic shock. Unclear etiology. Chest x-ray obtained with central line placement does not show any clear focal consolidation. I would suspect a urinary tract infection as most likely etiology. She has not fevered. She is not having much urine output, and her creatinine is increased as below * Remains in ICU * Titrated Levophed * Starting vasopressin * Central line placed 06/23 in the right IJ * Starting cefepime and Flagyl * Trend lactate * CBC a.m. * Consideration for tube feeding, but she has high pressor requirements right now (2) NAOMI (acute kidney injury): Impression: In the setting of her shock. Likely hypoperfusion of the kidney. Suspected ATN. * Maintain pressure as above * Lucas in place for accurate I/O * 1 L fluid bolus today * Continue D5 maintenance fluids * Trend creatinine this afternoon and tomorrow morning * Dialysis not clearly in family's goals of care, but will readdress if not improving (3) Femoral neck fracture: Impression: Stable postoperatively. Postoperative day 1. S/p surgical repair 06/22. Blood loss of 250 mL. Recall that etiology of her fracture was from mechanical ground-level fall. She tripped on her nightgown. She has x-ray confirmed a left subcapital femoral neck fracture. * Continue heparin for VTE prophylaxis, ASA currently on hold * Pain management * PT if and when her shock resolves * Likely will do heparin for VTE prophylaxis moving forward given listed aspirin allergy Qualifiers: Encounter type: initial encounter Fracture type: closed Laterality: l eft Qualified Code(s): S72.002A - Fracture of unspecified part of neck of left femur, initial encounter for closed fracture (4) Dementia: Impression: Stable, no episodes of delirium Moderate Alzheimer's dementia. Patient lives in memory care. She still is able to feed herself. She is still on memantine. She has some mood disturbance and insomnia necessitating nightly mirtazapine. She has done well with this. Only recently started. * Continue mirtazapine nightly * Will hold memantine Qualifiers: Alzheimer's disease onset: late onset Dementia behavioral or psychological symptom: with mood disturbance Dementia severity: moderate D ementia type: Alzheimer's Qualified Code(s): G30.1 - Alzheimer's disease with late onset; F02.B3 - Dementia in other diseases classified elsewhere, moderate, with mood disturbance (5) Atrial fibrillation: Impression: Patient is rate controlled. Does have irregular rhythm on my auscultation, Confirmed on EKG after admission. Notably she is not on any anticoagulation. Her daughter seems to remember that after she had several falls, that she was taken off of anticoagulation because of her increased bleeding risk. This was several years ago. Qualifiers: Atrial fibrillation type: longstanding persistent Qualified Code(s): I 48.11 - Longstanding persistent atrial fibrillation (6) Hypertension: Impression: Now in shock as above. Blood pressure medications currently on hold. She is on multiple antihypertensives prior to this admission. She is on Coreg, amlodipine, hydralazine and losartan. Per her daughter's report, she has been considered for reducing dose of hydralazine (TID>BID) given how well her blood pressure has been controlled. Based on EMS report, it does not sound like she became orthostatic when she fell, more related to mechanical factors and tripping over her nightgown. 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
[2025-06-23] MEDS: ONDANSETRON 4 MG/2 ML VIAL IVP PRN (08:32)
[2025-06-23] MEDS ORDERED: CEFEPIME 2 GM in SODIUM CHLORIDE 0.9% MINIBAG 100 ML IV SCH (09:00)
[2025-06-23] MEDS: LACTATED RINGERS 1,000 ML IV ONE (09:26)
[2025-06-23] MEDS: PROCHLORPERAZINE 10 MG/2 ML VIAL IVP PRN (09:38)
[2025-06-23] MEDS: MIDAZOLAM 2 MG/2 ML VIAL IVP STA (09:50)
[2025-06-23] MEDS: ASPIRIN EC 325 MG TABLET PO SCH (10:21)
[2025-06-23] MEDS: CEFEPIME 1 GM VIAL IVP SCH (10:22)
--- NOTE | 2025-06-23 11:08 | XRAY Report ---
PROCEDURE: XR Chest for Line Placement INDICATIONS: right IJ line TECHNIQUE: Single frontal view of the chest was obtained COMPARISON: None FINDINGS: Instrumentation: Right IJ central venous line tip in the right atrium. No pneumothorax Heart size, mediastinum and pulmonary vasculature: Unremarkable. Lungs and pleural spaces: Clear. No pneumothorax or pleural effusion. Osseous structures: Unremarkable IMPRESSION: Right IJ central venous line tip in the right atrium Reviewed by: Marko Green MD on 06/23/2025 10:05 AM [facility] Approved by: Marko Green MD on 06/23/2025 10:05 AM [facility] Station ID: [id number]
--- NOTE | 2025-06-23 11:45 | PROCEDURE REPORT ---
Hospitalist Procedure Note Procedure Note Procedure Note: Date: 06/23/2025 Time: 09:32 Attending physician: Daren Rick; proctored by Eris Garcia who was present Central line procedure Informed consent was obtained from patient's daughter. Risks and benefits of the procedure were explained. Timeout is completed verifying the correct patient, procedure, site, position. Patient was placed supine with a slight Trendelenburg to the bed. There was good access to the right and left internal jugular. Using ultrasound, the right internal jugular was identified. The field was then prepped and draped in sterile fashion. 1% lidocaine was used to anesthetize the surrounding skin area. A triple-lumen catheter was introduced through the right internal jugular vein using a modified Seldinger technique under ultrasound guidance. Catheter was threaded smoothly over the guidewire and blood was returned through each lumen. Each lumen of the catheter was advanced ovarian flushed with sterile saline prior. Catheter was then sutured in place and a sterile dressing was applied. A postprocedure x-ray was obtained, revealing the catheter to be in appropriate position.
[2025-06-23] MEDS ORDERED: VASOPRESSIN 20 UNIT in DEXTROSE 5% 99 ML IVP ONE (12:53)
[2025-06-23] MEDS: VASOPRESSIN 20 UNIT in DEXTROSE 5% 99 ML IV SCH (13:53)
[2025-06-23 14:28] LABS: BUN - BLOOD UREA NITROGEN 36.0 mg/dL (6-20); CARBON DIOXIDE - CO2 23.0 mmol/L (21-32); CREATININE 2.7 mg/dL (0.6-1.3); GFR - MDRD 17.0 (>89)
[2025-06-24 04:48] LABS: MEAN PLATELET VOLUME 10.5 fL (7.9-10.8); NRBC ABSOLUTE COUNT (AUTO) 0.03 x10^3/uL; NUCLEATED RED BLOOD CELLS AUTO 0.2 /100WBC; PLT - PLATELET COUNT 208 10^3/uL (130-450); RED CELL DISTRIBUTION WIDTH 14.2 % (12.0-15.0)
[2025-06-24 04:50] LABS: VBG PH 7.268 (7.31-7.41)
[2025-06-24 04:55] LABS: HGB - HEMOGLOBIN 5.7 g/dL (12.0-16.0)
[2025-06-24 04:56] LABS: HCT - HEMATOCRIT 18.2 % (37.0-47.0)
[2025-06-24 05:04] LABS: BUN - BLOOD UREA NITROGEN 40.0 mg/dL (6-20); CARBON DIOXIDE - CO2 21.0 mmol/L (21-32); CREATININE 3.3 mg/dL (0.6-1.3); GFR - MDRD 13.0 (>89); PHOSPHORUS 6.4 mg/dL (2.5-5.0)
[2025-06-24 05:22] LABS: MEAN PLATELET VOLUME 9.9 fL (7.9-10.8); NRBC ABSOLUTE COUNT (AUTO) 0.02 x10^3/uL; NUCLEATED RED BLOOD CELLS AUTO 0.1 /100WBC; PLT - PLATELET COUNT 227 10^3/uL (130-450); RED CELL DISTRIBUTION WIDTH 14.3 % (12.0-15.0)
[2025-06-24 05:25] LABS: HCT - HEMATOCRIT 18.9 % (37.0-47.0); HGB - HEMOGLOBIN 5.8 g/dL (12.0-16.0)
[2025-06-24] MEDS ORDERED: SODIUM CHLORIDE 0.9% 1,000 ML IV SCH (06:00)
--- NOTE | 2025-06-24 09:15 | PROVIDER PROGRESS NOTE ---
Subjective Prog Note Date Prog Note Date: 06/24/25 Prog Note Time: 09:14 Subjective Pt reports feeling: No change Subjective: Patient was found to be severely anemic this morning. She was started on 1 unit PRBC by the director of counterintelligence. Additional unit was given today. In addition to this and a 500 mL fluid bolus was given today. She is physiologically responding well to this. Her pressor requirement is coming down substantially throughout the day. Patient continues to be quite somnolent. She rouses to voice. She is very confused about her situation which is understandable given her underlying dementia. She does not endorse any particular pains. She is denying any fever. Continues to be critically ill. Current Medications Current Medications Current Medications: Current Medications Generic Name Dose Route Start Last Admin Trade Name Freq PRN Reason Stop Dose Admin Atorvastatin Calcium 5 mg 06/21/25 21:00 06/23/25 20:54 Atorvastatin 10 Mg Tablet PO 5 mg HS JANETTE Administration Cefepime HCl 1 gm 06/23/25 09:00 06/24/25 08:07 Cefepime 1 Gm Vial IVP 1 gm Q12H JANETTE Administration Docusate Sodium 100 mg 06/21/25 14:17 Docusate Sodium 100 Mg Capsule PO DAILY PRN Constipation Heparin Sodium (Porcine) 5,000 unit 06/22/25 21:00 06/24/25 08:59 Heparin 5,000 Unit/Ml Vial SUBQ Not Given BID JANETTE Hydralazine HCl 100 mg 06/21/25 21:00 06/24/25 08:03 Hydralazine 25 Mg Tablet PO Not Given BID JANETTE Hydromorphone HCl 0.5 mg 06/22/25 20:23 06/24/25 08:20 Hydromorphone 0.5 Mg/0.5 Ml Syringe IVP 0.5 mg Q2H PRN Administration Severe Pain (Level 7-10) Norepinephrine/Sodium Chloride 8 mg in 250 mls @ 15 mls/hr 06/22/25 21:00 06/24/25 09:00 Levophed 8 Mg/250-0.9% Nacl IV 9 mcg/min .[id number] JANETTE 16.88 mls/hr Protocol Titration 8 MCG/MIN Dextrose/Sodium Chloride 1,000 mls @ 75 mls/hr 06/22/25 21:00 06/24/25 06:18 D5.45ns IV Not Given .[id number] JANETTE Acetaminophen 1,000 mg in 100 mls @ 400 mls/hr 06/23/25 17:00 06/24/25 05:12 Acetaminophen IV 400 mls/hr Q6H JANETTE Administration Metronidazole 500 mg in 100 mls @ 100 mls/hr 06/23/25 11:30 06/24/25 04:45 Flagyl 500 Mg/100 Ml IV Infused Q8H JANETTE Infusion Vasopressin 20 unit/ Dextrose 100 mls @ 6 mls/hr 06/23/25 14:00 06/23/25 23:08 IV 0.03 unit/min .[id number] JANETTE 9 mls/hr Protocol Administration 0.02 UNIT/MIN Levothyroxine Sodium 88 mcg 06/22/25 07:00 06/24/25 08:58 Levothyroxine 88 Mcg Tablet PO Not Given QDAC JANETTE Lidocaine 1 patch 06/22/25 09:00 06/24/25 08:06 Lidocaine Patch 4% TOP 1 patch DAILY JANTETE Administration Lorazepam 0.5 mg 06/24/25 08:09 Lorazepam 2 Mg/Ml Vial IVP Q4H PRN Anxiety Mirtazapine 15 mg 06/21/25 21:00 06/23/25 20:54 Mirtazapine 15 Mg Tablet PO 15 mg HS JANETTE Administration Nystatin 1 applic 06/21/25 14:17 Nystatin Powder 15 Gm TOP TID PRN rash Ondansetron HCl 4 mg 06/21/25 13:42 06/22/25 03:15 Ondansetron Odt 4 Mg Tablet TL 4 mg Q6HR PRN Administration Nausea / Vomiting Ondansetron HCl 4 mg 06/21/25 13:42 06/23/25 13:53 Ondansetron 4 Mg/2 Ml Vial IVP 4 mg Q6HR PRN Administration Nausea / Vomiting Oxycodone HCl 5 mg 06/22/25 22:00 06/23/25 15:29 Oxycodone 5 Mg Tablet PO 5 mg Q4HR PRN Administration Moderate Pain (Level 4-6) Prochlorperazine Edisylate 10 mg 06/23/25 08:38 06/23/25 23:28 Prochlorperazine 10 Mg/2 Ml Vial IVP 10 mg Q6HR PRN Administration Nausea / Vomiting Sodium Chloride 10 ml 06/21/25 13:40 06/24/25 05:44 Sodium Chloride Flush 0.9% 10 Ml Syringe IVP 10 ml PRN PRN Administration NEEDED PER PROVIDER ORDERS Sodium Chloride 10 ml 06/21/25 17:00 06/24/25 08:03 Sodium Chloride Flush 0.9% 10 Ml Syringe IVP 10 ml 0100,[id number],1700 JANETTE Administration Sterile Water 15 ml 06/23/25 09:00 06/24/25 08:07 Water For Injection,Sterile 10 Ml Vial MC 15 ml Q12H JANETTE Administration Objective Vital Signs/Intake & Output Reviewed Vital Signs: Yes Vital Signs: Vital Signs x48h Temp Pulse Pulse Resp BP BP Pulse Ox 06/24/25 09:00 92 19 118/44 L 97 06/24/25 08:56 37.1 C 84 20 118/44 L 97 06/24/25 08:11 37.1 C 100 18 155/99 H 92 06/24/25 08:00 36.7 C 106 H 23 159/76 H 91 L 06/24/25 07:55 37.2 C 127 H 31 H 126/70 93 06/24/25 07:00 06/24/25 07:00 101 H 21 104/47 L 95 06/24/25 06:50 101 H 17 119/54 L 94 06/24/25 06:45 101 H 17 99/73 95 06/24/25 06:40 94 18 84/53 L 92 06/24/25 06:30 97 16 117/63 96 06/24/25 06:00 98 13 102/37 L 97 06/24/25 06:00 36.8 C 91 15 102/37 L 97 06/24/25 05:30 114 H 21 120/58 L 96 06/24/25 05:30 100 12 120/58 L 94 06/24/25 05:16 95 13 116/66 96 06/24/25 05:16 113 H 23 116/66 95 06/24/25 05:00 131 H 25 H 100/43 L 88 L 06/24/25 05:00 101 H 17 100/43 L 99 06/24/25 04:00 108 H 16 100/66 99 06/24/25 04:00 105 H 23 100/66 95 06/24/25 03:00 92 16 121/51 L 96 06/24/25 03:00 36.8 C 100 11 L 121/51 L 96 06/24/25 02:04 101 H 11 L 92/44 L 96 06/24/25 02:00 91 15 96/49 L 93 06/24/25 02:00 94 13 96/49 L 93 06/24/25 01:31 101 H 12 149/61 H 93 O2 Flow Rate 06/24/25 09:00 6 06/24/25 08:56 4 06/24/25 08:11 6 06/24/25 08:00 6 06/24/25 07:55 6 06/24/25 07:00 6 06/24/25 07:00 4 06/24/25 06:50 06/24/25 06:45 06/24/25 06:40 06/24/25 06:30 06/24/25 06:00 06/24/25 06:00 4 06/24/25 05:30 06/24/25 05:30 06/24/25 05:16 06/24/25 05:16 4 06/24/25 05:00 06/24/25 05:00 4 06/24/25 04:00 06/24/25 04:00 4 06/24/25 03:00 06/24/25 03:00 4 06/24/25 02:04 06/24/25 02:00 06/24/25 02:00 4 06/24/25 01:31 Intake & Output: Intake & Output 06/21/25 06/22/25 06/23/25 06/24/25 23:59 23:59 23:59 23:59 Intake Total 1000 / 1000 2179 / 2179 3510 / 3510 368 / 368 Output Total 250 / 250 210 / 210 102 / 102 83 / 83 Balance 750 / 750 1968 / 1968 3408 / 3408 285 / 285 Weight (kg) 87 kg Objective Comments/Other: GEN: Nauseous, somnolent. Arouses to voice. Toxic appearing HEENT: NC/AT, normal appearance of external ears and nose. Hearing baseline and intact. Cardiac: Irregular rhythm, Rate coming down to the 80s to 90s. No murmurs. No visible JVP elevation. Pulm: Lungs clear, no rhonchi appreciated. No appreciable wheezing. O2 requirement stable at 2 L. Abdomen: Soft, nontender, nondistended. No rebound or guarding Extremities: Expected postoperative changes in left lower extremity. No purulence or drainage around her surgical wounds. Neuro: Face symmetric, CN II through XII intact grossly. No focal neurologic deficits. Psych: Somnolent, but rousable. Mood euthymic. Lab Results 06/24/25 14:20 06/24/25 04:30 Other Labs: Lab Results x24hrs 06/24/25 06/24/25 06/23/25 Range/Units 05:00 04:30 13:56 WBC 16.4 H 16.0 H (4.8-10.8) x10^3/uL RBC 1.75 L 1.70 L (4.20-5.40) 10^6/uL Hgb 5.8 L* 5.7 L* (12.0-16.0) g/dL Hct 18.9 L* 18.2 L* (37.0-47.0) % MCV 108.0 H 107.1 H (81.0-99.0) fL MCH 33.1 H 33.5 H (27.0-31.0) pg MCHC 30.7 L 31.3 L (32.0-36.0) g/dL RDW 14.3 14.2 (12.0-15.0) % Plt Count 227 208 (130-450) 10^3/uL MPV 9.9 10.5 (7.9-10.8) fL Neut # (Auto) 14.3 H 14.1 H (1.5-6.6) 10^3/uL Lymph # (Auto) 1.1 L 0.9 L (1.5-3.5) 10^3/uL Hemphill # (Auto) 0.8 0.7 (0.0-1.0) 10^3/uL Eos # (Auto) 0.1 0.1 (0.0-0.7) 10^3/uL Baso # (Auto) 0.0 0.0 (0.0-0.1) 10^3/uL Absolute Nucleated RBC 0.02 0.03 x10^3/uL Nucleated RBC % 0.1 0.2 /100WBC VBG pH 7.268 L (7.31-7.41) Ionized Calcium 1.05 L (1.09-1.30) mmol/L Sodium 130 L 131 L (135-145) mmol/L Potassium 5.0 H 4.8 H (3.5-4.5) mmol/L Chloride 100 L 100 L (101-111) mmol/L Carbon Dioxide 21 23 (21-32) mmol/L Anion Gap 9.0 8.0 (6-13) BUN 40 H 36 H (6-20) mg/dL Creatinine 3.3 H 2.7 H (0.6-1.3) mg/dL Estimated GFR (MDRD) 13 L 17 L (>89) Glucose 146 H 158 H (74-104) mg/dL Lactic Acid (0.5-2.2) mmol/L Calcium 6.9 L 7.3 L (8.5-10.3) mg/dL Phosphorus 6.4 H (2.5-5.0) mg/dL Magnesium 1.9 (1.7-2.3) mg/dL Blood Type Blood Type Recheck Antibody Screen Crossmatch IS Only 06/23/25 06/23/25 06/23/25 Range/Units 12:07 10:31 08:38 WBC (4.8-10.8) x10^3/uL RBC (4.20-5.40) 10^6/uL Hgb (12.0-16.0) g/dL Hct (37.0-47.0) % MCV (81.0-99.0) fL MCH (27.0-31.0) pg MCHC (32.0-36.0) g/dL RDW (12.0-15.0) % Plt Count (130-450) 10^3/uL MPV (7.9-10.8) fL Neut # (Auto) (1.5-6.6) 10^3/uL Lymph # (Auto) (1.5-3.5) 10^3/uL Hemphill # (Auto) (0.0-1.0) 10^3/uL Eos # (Auto) (0.0-0.7) 10^3/uL Baso # (Auto) (0.0-0.1) 10^3/uL Absolute Nucleated RBC x10^3/uL Nucleated RBC % /100WBC VBG pH (7.31-7.41) Ionized Calcium (1.09-1.30) mmol/L Sodium (135-145) mmol/L Potassium (3.5-4.5) mmol/L Chloride (101-111) mmol/L Carbon Dioxide (21-32) mmol/L Anion Gap (6-13) BUN (6-20) mg/dL Creatinine (0.6-1.3) mg/dL Estimated GFR (MDRD) (>89) Glucose (74-104) mg/dL Lactic Acid 1.8 2.1 (0.5-2.2) mmol/L Calcium (8.5-10.3) mg/dL Phosphorus (2.5-5.0) mg/dL Magnesium (1.7-2.3) mg/dL Blood Type A POSITIVE Blood Type Recheck A POSITIVE Antibody Screen NEGATIVE Crossmatch IS Only See Detail Sepsis Event Note (H) Evaluation Current Stage of Sepsis: Septic shock Possible source of Sepsis: positive Unknown Sepsis Criteria Sepsis Criteria: WBC count greater than 12,000 or less than 4000, MAP less than 65 mmHg and Metabolic: lactate > 2 mmol/L Assessment/Plan Problem List (1) Shock: Impression: Ongoing, critical She has been treated for both distributive as well as hypovolemic shock. She is getting volume back with blood x 2 as of 06/24. Pressor requirement coming down with blood transfusions. Additional 500 mL liter fluid bolus. Suspect mostly was related to hypovolemia. She was started on broad-spectrum antibiotics as well. She improved minimally after starting on the antibiotics, but has improved more after giving back some volume. She had a profound leukocytosis prompting infectious workup, however urine and blood cultures have both been negative. No evidence of pneumonia. She has had poor urine output since her shock developed, but improving today. * Remains in ICU * Titrate off Levophed before turning off vasopressin * Continue cefepime and Flagyl, can likely DC tomorrow if her white count is improving and her pressor requirement continues to improve. She has not fevered. * CBC a.m. (2) Acute blood loss anemia: Impression: Noted hemoglobin of 5.8 on 06/24. * 2 units PRBC * Posttransfusion Hgb 7.4 * Additional 500 mL liter fluid bolus today. (3) NAOMI (acute kidney injury): Impression: Stable to slightly worse. GFR now 13. Making only small amounts of urine. Likely hypoperfusion of the kidney. Suspected ATN. * Pressor support as above * Lucas in place for accurate I/O * Continue D5 maintenance fluids * BMP a.m. * Dialysis not clearly in family's goals of care, but will readdress if not improving (4) Femoral neck fracture: Impression: Stable postoperatively. Postoperative day 2. S/p surgical repair 06/22. Complicated by acute blood loss anemia as above. Recall that etiology of her fracture was from mechanical ground-level fall. She tripped on her nightgown. She has x-ray confirmed a left subcapital femoral neck fracture. * Continue heparin for VTE prophylaxis * Pain management * PT if and when her shock resolves * Likely will do heparin for VTE prophylaxis moving forward given listed aspirin allergy Qualifiers: Encounter type: initial encounter Fracture type: closed Laterality: l eft Qualified Code(s): S72.002A - Fracture of unspecified part of neck of left femur, initial encounter for closed fracture (5) Dementia: Impression: Complicating her ICU stay. She is very confused about what is happening with her. Moderate Alzheimer's dementia. Patient lives in memory care. She still is able to feed herself. She is still on memantine. She has some mood disturbance and insomnia necessitating nightly mirtazapine. She has done well with this. Only recently started. * Continue mirtazapine nightly * As needed anxiolytics available * OPERATIONS EXAMINER consult * Intubation and dialysis not within the family's goals of care. Would only cautiously trial a feeding tube, likely would avoid Qualifiers: Alzheimer's disease onset: late onset Dementia behavioral or psychological symptom: with mood disturbance Dementia severity: moderate D ementia type: Alzheimer's Qualified Code(s): G30.1 - Alzheimer's disease with late onset; F02.B3 - Dementia in other diseases classified elsewhere, moderate, with mood disturbance (6) Atrial fibrillation: Impression: Notably she is not on any anticoagulation. Her daughter seems to remember that after she had several falls, that she was taken off of anticoagulation because of her increased bleeding risk. This was several years ago. * Tachycardic at times. Anticoagulation as above * Not on any rate controlling agents. Qualifiers: Atrial fibrillation type: longstanding persistent Qualified Code(s): I 48.11 - Longstanding persistent atrial fibrillation (7) Hypertension: Impression: Now in shock as above. Blood pressure medications currently on hold. She is on multiple antihypertensives prior to this admission. She is on Coreg, amlodipine, hydralazine and losartan. Per her daughter's report, she has been considered for reducing dose of hydralazine (TID>BID) given how well her blood pressure has been controlled. Based on EMS report, it does not sound like she became orthostatic when she fell, more related to mechanical factors and tripping over her nightgown. * Hold BELT LOOP CUTTER Coreg, hydralazine, amlodipine Qualifiers: Hypertension type: primary hypertension Qualified Code(s): I10 - Essential (primary) hypertension
[2025-06-24] MEDS: LORazepam 2 MG/ML VIAL IVP PRN (10:44)
[2025-06-24 14:29] LABS: HCT - HEMATOCRIT 22.8 % (37.0-47.0); HGB - HEMOGLOBIN 7.4 g/dL (12.0-16.0); MEAN PLATELET VOLUME 9.9 fL (7.9-10.8); NRBC ABSOLUTE COUNT (AUTO) 0.02 x10^3/uL; NUCLEATED RED BLOOD CELLS AUTO 0.2 /100WBC; PLT - PLATELET COUNT 135 10^3/uL (130-450); RED CELL DISTRIBUTION WIDTH 16.4 % (12.0-15.0)
[2025-06-24] MEDS: LACTATED RINGERS 500 ML IV ONE (17:07)
[2025-06-24] MEDS: CALAMINE/ZINC OXIDE 177 ML BOTTLE TOP PRN (17:30)
[2025-06-25 05:16] LABS: HCT - HEMATOCRIT 20.5 % (37.0-47.0); MEAN PLATELET VOLUME 9.9 fL (7.9-10.8); NRBC ABSOLUTE COUNT (AUTO) 0.02 x10^3/uL; NUCLEATED RED BLOOD CELLS AUTO 0.2 /100WBC; PLT - PLATELET COUNT 99 10^3/uL (130-450); RED CELL DISTRIBUTION WIDTH 17.2 % (12.0-15.0)
[2025-06-25 05:26] LABS: BUN - BLOOD UREA NITROGEN 45.0 mg/dL (6-20); CARBON DIOXIDE - CO2 22.0 mmol/L (21-32); CREATININE 2.9 mg/dL (0.6-1.3); GFR - MDRD 15.0 (>89)
[2025-06-25 05:30] LABS: HGB - HEMOGLOBIN 6.8 g/dL (12.0-16.0)
[2025-06-25 06:01] LABS: PHOSPHORUS 4.9 mg/dL (2.5-5.0)
[2025-06-25 06:06] LABS: VBG PH 7.296 (7.31-7.41)
[2025-06-25] MEDS: NYSTATIN POWDER 15 GM TOP PRN (09:44)
--- NOTE | 2025-06-25 09:46 | PROVIDER PROGRESS NOTE ---
Subjective Subjective Subjective: This morning, patient awakens her eyes to voice, but does not do anything meaningful. She is not following commands. She is pretty agitated overnight. We have been able to slowly wean her off her pressor requirements. Current Medications Current Medications Current Medications: Current Medications Generic Name Dose Route Start Last Admin Trade Name Freq PRN Reason Stop Dose Admin Atorvastatin Calcium 5 mg 06/21/25 21:00 06/24/25 20:42 Atorvastatin 10 Mg Tablet PO Not Given HS JANETTE Calamine 1 applic 06/24/25 14:59 06/24/25 17:30 Calamine/Zinc Oxide 177 Ml Bottle TOP 1 applic Q6HR PRN Administration ITCHING Cefepime HCl 1 gm 06/23/25 09:00 06/24/25 21:03 Cefepime 1 Gm Vial IVP 1 gm Q12H JANETTE Administration Diphenhydramine HCl 25 mg 06/24/25 17:44 06/25/25 00:19 Diphenhydramine Inj 50 Mg/Ml Vial IVP 25 mg Q6H PRN Administration Allergy Symptoms Docusate Sodium 100 mg 06/21/25 14:17 Docusate Sodium 100 Mg Capsule PO DAILY PRN Constipation Heparin Sodium (Porcine) 5,000 unit 06/22/25 21:00 06/24/25 21:03 Heparin 5,000 Unit/Ml Vial SUBQ 5,000 unit BID JANETTE Administration Hydralazine HCl 100 mg 06/21/25 21:00 06/24/25 20:42 Hydralazine 25 Mg Tablet PO Not Given BID JANETTE Hydromorphone HCl 0.5 mg 06/22/25 20:23 06/25/25 05:20 Hydromorphone 0.5 Mg/0.5 Ml Syringe IVP 0.5 mg Q2H PRN Administration Severe Pain (Level 7-10) Hydroxyzine Pamoate 25 mg 06/24/25 14:59 Hydroxyzine Pamoate 25 Mg Capsule PO QPM PRN ITCHING Norepinephrine/Sodium Chloride 8 mg in 250 mls @ 15 mls/hr 06/22/25 21:00 06/24/25 18:16 Levophed 8 Mg/250-0.9% Nacl IV 0 mcg/min .[id number] JANETTE 0 mls/hr Protocol Titration 8 MCG/MIN Dextrose/Sodium Chloride 1,000 mls @ 75 mls/hr 06/22/25 21:00 06/25/25 09:16 D5.45ns IV 75 mls/hr .[id number] JANETTE Infusion Acetaminophen 1,000 mg in 100 mls @ 400 mls/hr 06/23/25 17:00 06/25/25 05:31 Acetaminophen IV Infused Q6H JANETTE Infusion Metronidazole 500 mg in 100 mls @ 100 mls/hr 06/23/25 11:30 06/25/25 05:35 Flagyl 500 Mg/100 Ml IV Infused Q8H JANETTE Infusion Vasopressin 20 unit/ Dextrose 100 mls @ 6 mls/hr 06/23/25 14:00 06/25/25 08:27 IV 0 unit/min .[id number] JANETTE 0 mls/hr Protocol Titration 0.02 UNIT/MIN Levothyroxine Sodium 88 mcg 06/22/25 07:00 06/25/25 06:24 Levothyroxine 88 Mcg Tablet PO Not Given QDAC JANETTE Lidocaine 1 patch 06/22/25 09:00 06/24/25 08:06 Lidocaine Patch 4% TOP 1 patch DAILY JANETTE Administration Lorazepam 0.5 mg 06/24/25 08:09 06/25/25 08:04 Lorazepam 2 Mg/Ml Vial IVP 0.5 mg Q4H PRN Administration Anxiety Mirtazapine 15 mg 06/21/25 21:00 06/24/25 20:42 Mirtazapine 15 Mg Tablet PO Not Given HS JANETTE Nystatin 1 applic 06/21/25 14:17 Nystatin Powder 15 Gm TOP TID PRN rash Ondansetron HCl 4 mg 06/21/25 13:42 06/22/25 03:15 Ondansetron Odt 4 Mg Tablet TL 4 mg Q6HR PRN Administration Nausea / Vomiting Ondansetron HCl 4 mg 06/21/25 13:42 06/23/25 13:53 Ondansetron 4 Mg/2 Ml Vial IVP 4 mg Q6HR PRN Administration Nausea / Vomiting Oxycodone HCl 5 mg 06/22/25 22:00 06/23/25 15:29 Oxycodone 5 Mg Tablet PO 5 mg Q4HR PRN Administration Moderate Pain (Level 4-6) Prochlorperazine Edisylate 10 mg 06/23/25 08:38 09/21/25 23:28 Prochlorperazine 10 Mg/2 Ml Vial IVP 10 mg Q6HR PRN Administration Nausea / Vomiting Sodium Chloride 10 ml 06/21/25 13:40 06/24/25 05:44 Sodium Chloride Flush 0.9% 10 Ml Syringe IVP 10 ml PRN PRN Administration NEEDED PER PROVIDER ORDERS Sodium Chloride 10 ml 06/21/25 17:00 06/25/25 00:13 Sodium Chloride Flush 0.9% 10 Ml Syringe IVP 10 ml 0100,0900,1700 JANETTE Administration Sterile Water 15 ml 06/23/25 09:00 06/24/25 21:03 Water For Injection,Sterile 10 Ml Vial MC 15 ml Q12H JANETTE Administration Objective Vital Signs/Intake & Output Reviewed Vital Signs: Yes Vital Signs: Vital Signs x48h Temp Pulse Resp BP Pulse Ox O2 Flow Rate 06/25/25 09:00 78 17 103/45 L 96 2 06/25/25 08:31 80 26 H 120/69 98 2 06/25/25 08:00 104 H 26 H 143/65 H 93 2 06/25/25 07:32 97.9 F 90 20 110/59 L 95 2 06/25/25 07:16 98.4 F 71 16 112/47 L 97 2 06/25/25 07:00 74 12 108/51 L 96 2 06/25/25 06:07 78 14 105/43 L 97 2 06/25/25 06:00 77 12 108/46 L 97 2 06/25/25 05:00 118 H 29 H 105/49 L 96 2 06/25/25 04:35 98.1 F 06/25/25 04:00 72 14 112/50 L 98 2 06/25/25 03:00 76 13 111/52 L 98 4 06/25/25 02:00 86 12 129/65 96 6 Intake & Output: Intake & Output 06/22/25 06/23/25 06/24/25 06/25/25 23:59 23:59 23:59 23:59 Intake Total 2179 / 2179 3510 / 3510 2475 / 2475 1583 / 1583 Output Total 210 / 210 102 / 102 501 / 501 348 / 348 Balance 1968 / 1968 3408 / 3408 1973 1235 / 1235 Objective General Appearance: positive Mild distress and Anxious; negative Alert Eyes Bilateral: positive Normal inspection and PERRL ENT: positive ENT inspection nml, Pharynx nml and No signs of dehydration Neck: positive Nml inspection, Thyroid nml and No JVD Respiratory: positive Chest non-tender, No respiratory distress, Breath sounds nml and Rales (Mild bibasilar rales); negative Wheezes or Rhonchi Cardiovascular: positive Regular rate & rhythm, No murmur and No gallop; negative Tachycardia or Systolic murmur Abdomen: positive Non-tender, No organomegaly and No distention; negative Guarding or Splenomegaly Back: positive Nml inspection; negative CVA tenderness (R) or CVA tenderness (L) Skin: positive Color nml, No rash, Warm and Dry Extremities: positive Non-tender, Full ROM, Nml appearance and No pedal edema Neurologic/Psychiatric: positive Oriented x3, Motor nml and Mood/affect nml Comments/Other: GEN: Nauseous, somnolent. Arouses to voice. Toxic appearing HEENT: NC/AT, normal appearance of external ears and nose. Hearing baseline and intact. Cardiac: Irregular rhythm, Rate coming down to the 80s to 90s. No murmurs. No visible JVP elevation. Pulm: Lungs clear, no rhonchi appreciated. No appreciable wheezing. O2 requirement stable at 2 L. Abdomen: Soft, nontender, nondistended. No rebound or guarding Extremities: Expected postoperative changes in left lower extremity. No purulence or drainage around her surgical wounds. Neuro: Face symmetric, CN II through XII intact grossly. No focal neurologic deficits. Psych: Somnolent, but rousable. Mood euthymic. Lab Results 06/25/25 13:30 06/25/25 05:07 Other Labs: Lab Results x24hrs 06/25/25 06/24/25 06/23/25 Range/Units 05:07 14:20 08:38 WBC 9.9 12.9 H (4.8-10.8) x10^3/uL RBC 2.09 L 2.29 L (4.20-5.40) 10^6/uL Hgb 6.8 L* 7.4 L (12.0-16.0) g/dL Hct 20.5 L 22.8 L (37.0-47.0) % MCV 98.1 99.6 H (81.0-99.0) fL MCH 32.5 H 32.3 H (27.0-31.0) pg MCHC 33.2 32.5 (32.0-36.0) g/dL RDW 17.2 H 16.4 H (12.0-15.0) % Plt Count 99 L 135 (130-450) 10^3/uL MPV 9.9 9.9 (7.9-10.8) fL Neut # (Auto) 8.3 H 11.3 H (1.5-6.6) 10^3/uL Lymph # (Auto) 0.7 L 0.6 L (1.5-3.5) 10^3/uL Branch # (Auto) 0.6 0.6 (0.0-1.0) 10^3/uL Eos # (Auto) 0.2 0.1 (0.0-0.7) 10^3/uL Baso # (Auto) 0.0 0.1 (0.0-0.1) 10^3/uL Absolute Nucleated RBC 0.02 0.02 x10^3/uL Nucleated RBC % 0.2 0.2 /100WBC VBG pH 7.296 L (7.31-7.41) Ionized Calcium 1.06 L (1.09-1.30) mmol/L Sodium 131 L (135-145) mmol/L Potassium 4.7 H (3.5-4.5) mmol/L Chloride 103 (101-111) mmol/L Carbon Dioxide 22 (21-32) mmol/L Anion Gap 6.0 (6-13) BUN 45 H (6-20) mg/dL Creatinine 2.9 H (0.6-1.3) mg/dL Estimated GFR (MDRD) 15 L (>89) Glucose 131 H (74-104) mg/dL Calcium 6.8 L (8.5-10.3) mg/dL Phosphorus 4.9 (2.5-5.0) mg/dL Magnesium 1.9 (1.7-2.3) mg/dL Blood Type A POSITIVE Antibody Screen NEGATIVE Crossmatch IS Only See Detail Sepsis Event Note (H) Evaluation Current Stage of Sepsis: Septic shock Possible source of Sepsis: positive Unknown Sepsis Criteria Sepsis Criteria: WBC count greater than 12,000 or less than 4000, MAP less than 65 mmHg and Metabolic: lactate > 2 mmol/L Assessment/Plan Problem List (1) Shock: Impression: Likely due to hypovolemic shock, acute blood loss anemia after surgery. Hemoglobin dropped to 5.7 from 11.1 on admission. Received 2 units of blood initially. This morning repeat was 6.8, 1 more unit of blood was given. Repeat is now 7.5. Weaned off of Levophed and vasopressin. Continue IV fluid resuscitation. Less likely septic shock. Afebrile, normal white count. DC cefepime and Flagyl. (2) Acute blood loss anemia: Impression: See above. (3) NAOMI (acute kidney injury): Impression: Likely ATN, due to hypoperfusion in setting of hypotension as above. Continue IV fluids. (4) Femoral neck fracture: Impression: S/p surgical repair 06/22. Complicated by acute blood loss anemia as above. Recall that etiology of her fracture was from mechanical ground-level fall. She tripped on her nightgown. She has x-ray confirmed a left subcapital femoral neck fracture. Continue heparin for VTE prophylaxis. Physical therapy evaluation, likely tomorrow. Qualifiers: Encounter type: initial encounter Fracture type: closed Laterality: l eft Qualified Code(s): S72.002A - Fracture of unspecified part of neck of left femur, initial encounter for closed fracture (5) Dementia: Impression: Complicating her ICU stay. Experiencing delirium currently. Moderate Alzheimer's dementia. Patient lives in memory care. She still is able to feed herself. She is still on memantine. She has some mood disturbance and insomnia necessitating nightly mirtazapine. She has done well with this. Only recently started. Continue mirtazapine nightly. As needed anxiolytics available. Qualifiers: Alzheimer's disease onset: late onset Dementia behavioral or psychological symptom: with mood disturbance Dementia severity: moderate D ementia type: Alzheimer's Qualified Code(s): G30.1 - Alzheimer's disease with late onset; F02.B3 - Dementia in other diseases classified elsewhere, moderate, with mood disturbance (6) Atrial fibrillation: Impression: Notably she is not on any anticoagulation. Her daughter seems to remember that after she had several falls, that she was taken off of anticoagulation because of her increased bleeding risk. This was several years ago. Tachycardic at times. Anticoagulation as above. Not on any rate controlling agents. Qualifiers: Atrial fibrillation type: longstanding persistent Qualified Code(s): I 48.11 - Longstanding persistent atrial fibrillation (7) Hypertension: Impression: Now in shock as above. Blood pressure medications currently on hold. Continue to hold Coreg, hydralazine, amlodipine. Qualifiers: Hypertension type: primary hypertension Qualified Code(s): I10 - Essential (primary) hypertension
[2025-06-25] MEDS: BISACODYL 10 MG SUPP PR ONE (11:22)
[2025-06-25 13:48] LABS: HCT - HEMATOCRIT 23.4 % (37.0-47.0); HGB - HEMOGLOBIN 7.5 g/dL (12.0-16.0)
--- NOTE | 2025-06-25 14:36 | XRAY Report ---
PROCEDURE: XR Chest 1V INDICATIONS: Hypoxia, aspiration TECHNIQUE: One view of the chest was acquired. COMPARISON: June 23, 2025 FINDINGS: Surgical changes and devices: Right internal jugular central venous access catheter unchanged.. Lungs and pleura: No pleural effusions or pneumothorax. No consolidation. Mediastinum: Mediastinal contours appear normal. Stable cardiomegaly. Bones and chest wall: No suspicious bony lesions. Overlying soft tissues appear unremarkable. IMPRESSION: No acute cardiopulmonary process. Stable cardiomegaly. Reviewed by: Dell Davila MD on 06/25/2025 2:33 PM PDT Approved by: Dell Davila MD on 06/25/2025 2:33 PM PDT Station ID: [id number]
[2025-06-26 05:55] LABS: VBG PH 7.318 (7.31-7.41)
[2025-06-26 05:58] LABS: HCT - HEMATOCRIT 25.3 % (37.0-47.0); HGB - HEMOGLOBIN 8.2 g/dL (12.0-16.0); MEAN PLATELET VOLUME 10.4 fL (7.9-10.8); NRBC ABSOLUTE COUNT (AUTO) 0.03 x10^3/uL; NUCLEATED RED BLOOD CELLS AUTO 0.3 /100WBC; PLT - PLATELET COUNT 146 10^3/uL (130-450); RED CELL DISTRIBUTION WIDTH 17.2 % (12.0-15.0)
[2025-06-26 06:17] LABS: BUN - BLOOD UREA NITROGEN 43.0 mg/dL (6-20); CARBON DIOXIDE - CO2 22.0 mmol/L (21-32); CREATININE 2.3 mg/dL (0.6-1.3); GFR - MDRD 20.0 (>89); PHOSPHORUS 3.9 mg/dL (2.5-5.0)
[2025-06-26] MEDS: BISACODYL 10 MG SUPP PR ONE ×2 (09:03→21:56)
--- NOTE | 2025-06-26 12:15 | PROVIDER PROGRESS NOTE ---
Subjective Subjective Subjective: This morning, patient awakens her eyes to voice, but does not do anything meaningful. She is not following commands. She is just moaning and groaning. Her last bowel movement was over a week ago. A suppository was trialed yesterday, and again today without success. Diet: Regular previously; currently NPO due to mentation, will need SHUTTLE OPERATOR evaluation when mentation improves Dispo: Likely SNF on discharge, pending clinical course DVT: Heparin Code: DNR Current Medications Current Medications Current Medications: Current Medications Generic Name Dose Route Start Last Admin Trade Name Freq PRN Reason Stop Dose Admin Atorvastatin Calcium 5 mg 06/21/25 21:00 06/25/25 20:26 Atorvastatin 10 Mg Tablet PO Not Given HS JANETTE Calamine 1 applic 06/24/25 14:59 06/24/25 17:30 Calamine/Zinc Oxide 177 Ml Bottle TOP 1 applic Q6HR PRN Administration ITCHING Diphenhydramine HCl 25 mg 06/24/25 17:44 06/26/25 02:32 Diphenhydramine Inj 50 Mg/Ml Vial IVP 25 mg Q6H PRN Administration Allergy Symptoms Docusate Sodium 100 mg 06/21/25 14:17 Docusate Sodium 100 Mg Capsule PO DAILY PRN Constipation Heparin Sodium (Porcine) 5,000 unit 06/22/25 21:00 06/26/25 08:19 Heparin 5,000 Unit/Ml Vial SUBQ 5,000 unit BID JANETTE Administration Hydralazine HCl 100 mg 06/21/25 21:00 06/26/25 08:31 Hydralazine 25 Mg Tablet PO Not Given BID JANETTE Hydromorphone HCl 0.5 mg 06/22/25 20:23 06/26/25 10:32 Hydromorphone 0.5 Mg/0.5 Ml Syringe IVP 0.5 mg Q2H PRN Administration Severe Pain (Level 7-10) Hydroxyzine Pamoate 25 mg 06/24/25 14:59 Hydroxyzine Pamoate 25 Mg Capsule PO QPM PRN ITCHING Dextrose/Sodium Chloride 1,000 mls @ 75 mls/hr 06/22/25 21:00 06/26/25 06:28 D5.45ns IV 75 mls/hr .[id number] JANETTE Administration Acetaminophen 1,000 mg in 100 mls @ 400 mls/hr 06/23/25 17:00 06/26/25 11:34 Acetaminophen IV 400 mls/hr Q6H JANETTE Administration Levothyroxine Sodium 88 mcg 06/22/25 07:00 06/26/25 06:28 Levothyroxine 88 Mcg Tablet PO Not Given QDAC JANETTE Lidocaine 1 patch 06/22/25 09:00 06/26/25 09:03 Lidocaine Patch 4% TOP 1 patch DAILY JANETTE Administration Lorazepam 0.5 mg 06/24/25 08:09 06/26/25 09:29 Lorazepam 2 Mg/Ml Vial IVP 0.5 mg Q4H PRN Administration Anxiety Melatonin 6 mg 06/26/25 21:00 Melatonin 3 Mg Tablet PO QPM JANETTE Mirtazapine 15 mg 06/21/25 21:00 06/25/25 20:27 Mirtazapine 15 Mg Tablet PO Not Given HS JANETTE Nystatin 1 applic 06/21/25 14:17 06/25/25 09:44 Nystatin Powder 15 Gm TOP 1 applic TID PRN Administration rash Ondansetron HCl 4 mg 06/21/25 13:42 06/22/25 03:15 Ondansetron Odt 4 Mg Tablet TL 4 mg Q6HR PRN Administration Nausea / Vomiting Ondansetron HCl 4 mg 06/21/25 13:42 06/23/25 13:53 Ondansetron 4 Mg/2 Ml Vial IVP 4 mg Q6HR PRN Administration Nausea / Vomiting Oxycodone HCl 5 mg 06/22/25 22:00 06/23/25 15:29 Oxycodone 5 Mg Tablet PO 5 mg Q4HR PRN Administration Moderate Pain (Level 4-6) Prochlorperazine Edisylate 10 mg 06/23/25 08:38 06/26/25 09:02 Prochlorperazine 10 Mg/2 Ml Vial IVP 10 mg Q6HR PRN Administration Nausea / Vomiting Sodium Chloride 10 ml 06/21/25 13:40 06/26/25 05:07 Sodium Chloride Flush 0.9% 10 Ml Syringe IVP 10 ml PRN PRN Administration NEEDED PER PROVIDER ORDERS Sodium Chloride 10 ml 06/21/25 17:00 06/26/25 09:05 Sodium Chloride Flush 0.9% 10 Ml Syringe IVP 10 ml 0100,0900,1700 JANETTE Administration Objective Vital Signs/Intake & Output Reviewed Vital Signs: Yes Vital Signs: Vital Signs x48h Temp Pulse Resp BP Pulse Ox O2 Flow Rate 06/26/25 11:00 99 16 134/85 H 96 06/26/25 10:00 108 H 22 148/92 H 94 2 06/26/25 09:27 2 06/26/25 09:00 97 25 H 137/102 H 96 2 06/26/25 08:00 97.7 F 85 17 143/73 H 98 2 06/26/25 07:00 88 12 147/74 H 98 2 06/26/25 06:00 68 10 L 116/53 L 97 2 06/26/25 05:00 88 12 134/73 H 99 2 06/26/25 04:20 90 15 146/78 H 99 2 Intake & Output: Intake & Output 06/23/25 06/24/25 06/25/25 06/26/25 23:59 23:59 23:59 23:59 Intake Total 3510 / 3510 2475 / 2475 2765 / 2765 1096 / 1096 Output Total 102 / 102 501 / 501 930 / 930 935 / 935 Balance 3408 / 3408 1974 / 1974 1835 / 1835 161 / 161 Objective General Appearance: positive Mild distress and Anxious; negative Alert Eyes Bilateral: positive Normal inspection and PERRL ENT: positive ENT inspection nml, Pharynx nml and No signs of dehydration Neck: positive Nml inspection, Thyroid nml and No JVD Respiratory: positive Chest non-tender, No respiratory distress, Breath sounds nml and Rales (Mild bibasilar rales); negative Wheezes or Rhonchi Cardiovascular: positive No murmur, No gallop and Irregularly irregular; negative Tachycardia or Systolic murmur Abdomen: positive Non-tender, No organomegaly and No distention; negative Guarding or Splenomegaly Back: positive Nml inspection; negative CVA tenderness (R) or CVA tenderness (L) Skin: positive Color nml, No rash, Warm and Dry Extremities: positive Non-tender, Nml appearance and No pedal edema Neurologic/Psychiatric: positive Disoriented to person, Disoriented to place, Disoriented to time and Weakness Comments/Other: Extremities: Expected postoperative changes in left lower extremity. No purulence or drainage around her surgical wounds. Lab Results 06/26/25 05:10 06/26/25 05:10 Other Labs: Lab Results x24hrs 06/26/25 06/25/25 Range/Units 05:10 13:30 WBC 11.2 H (4.8-10.8) x10^3/uL RBC 2.57 L (4.20-5.40) 10^6/uL Hgb 8.2 L 7.5 L (12.0-16.0) g/dL Hct 25.3 L 23.4 L (37.0-47.0) % MCV 98.4 (81.0-99.0) fL MCH 31.9 H (27.0-31.0) pg MCHC 32.4 (32.0-36.0) g/dL RDW 17.2 H (12.0-15.0) % Plt Count 146 (130-450) 10^3/uL MPV 10.4 (7.9-10.8) fL Neut # (Auto) 9.2 H (1.5-6.6) 10^3/uL Lymph # (Auto) 0.7 L (1.5-3.5) 10^3/uL [place] # (Auto) 0.7 (0.0-1.0) 10^3/uL Eos # (Auto) 0.5 (0.0-0.7) 10^3/uL Baso # (Auto) 0.0 (0.0-0.1) 10^3/uL Absolute Nucleated RBC 0.03 x10^3/uL Nucleated RBC % 0.3 /100WBC VBG pH 7.318 (7.31-7.41) Ionized Calcium 1.09 (1.09-1.30) mmol/L Sodium 132 L (135-145) mmol/L Potassium 4.3 (3.5-4.5) mmol/L Chloride 104 (101-111) mmol/L Carbon Dioxide 22 (21-32) mmol/L Anion Gap 6.0 (6-13) BUN 43 H (6-20) mg/dL Creatinine 2.3 H (0.6-1.3) mg/dL Estimated GFR (MDRD) 20 L (>89) Glucose 90 (74-104) mg/dL Calcium 7.1 L (8.5-10.3) mg/dL Phosphorus 3.9 (2.5-5.0) mg/dL Magnesium 2.0 (1.7-2.3) mg/dL Sepsis Event Note (H) Evaluation Current Stage of Sepsis: Septic shock Possible source of Sepsis: positive Unknown Sepsis Criteria Sepsis Criteria: WBC count greater than 12,000 or less than 4000, MAP less than 65 mmHg and Metabolic: lactate > 2 mmol/L Assessment/Plan Problem List (1) Shock: Impression: Resolved. Likely due to hypovolemic shock, acute blood loss anemia after surgery. Hemoglobin dropped to 5.7 from 11.1 on admission. Received 2 units of blood initially. On 06/25, repeat was 6.8, 1 more unit of blood was given. It is now stable around 7.5 to 8.2. Weaned off of Levophed and vasopressin. Continue IV fluid resuscitation. Less likely septic shock. Afebrile, normal white count. DC cefepime and Flagyl. (2) Acute blood loss anemia: Impression: See above. (3) NAOMI (acute kidney injury): Impression: Likely ATN, due to hypoperfusion in setting of hypotension as above. Continue IV fluids. Improving. (4) Femoral neck fracture: Impression: S/p surgical repair 06/22. Complicated by acute blood loss anemia as above. Recall that etiology of her fracture was from mechanical ground-level fall. She tripped on her nightgown. She has x-ray confirmed a left subcapital femoral neck fracture. Continue heparin for VTE prophylaxis. Physical therapy evaluation, likely tomorrow. Qualifiers: Encounter type: initial encounter Fracture type: closed Laterality: l eft Qualified Code(s): S72.002A - Fracture of unspecified part of neck of left femur, initial encounter for closed fracture (5) Dysphagia: Impression: Patient is having a difficult time swallowing. Part of this may be due to her altered mentation and delirium, which is hopefully reversible. Speech therapy is following. However, she was not alert enough to actively participate in the evaluation. Will reconsult when patient is more willing. Currently receiving D5/sodium chloride. If her mentation does not improve in the next 24 to 48 hours, she will likely need a NG tube, and tube feeds. Qualifiers: Dysphagia type: unspecified Qualified Code(s): R13.10 - Dysphagia, unspecified (6) Dementia: Impression: Complicating her ICU stay. Experiencing delirium currently. Moderate Alzheimer's dementia. Patient lives in memory care. She still is able to feed herself. She is still on memantine. She has some mood disturbance and insomnia necessitating nightly mirtazapine. She has done well with this. Only recently started. Continue mirtazapine nightly. As needed anxiolytics available. Qualifiers: Alzheimer's disease onset: late onset Dementia behavioral or psychological symptom: with mood disturbance Dementia severity: moderate D ementia type: Alzheimer's Qualified Code(s): G30.1 - Alzheimer's disease with late onset; F02.B3 - Dementia in other diseases classified elsewhere, moderate, with mood disturbance (7) Atrial fibrillation: Impression: Notably she is not on any anticoagulation. Her daughter seems to remember that after she had several falls, that she was taken off of anticoagulation because of her increased bleeding risk. This was several years ago. Tachycardic at times. Anticoagulation as above. Not on any rate controlling agents. Qualifiers: Atrial fibrillation type: longstanding persistent Qualified Code(s): I 48.11 - Longstanding persistent atrial fibrillation (8) Hypertension: Impression: Blood pressure medications currently on hold. Continue to hold Coreg, hydralazine, amlodipine. Qualifiers: Hypertension type: primary hypertension Qualified Code(s): I10 - Essential (primary) hypertension
[2025-06-26] MEDS ORDERED: ACETAMINOPHEN 325 MG TABLET PO PRN (13:12)
[2025-06-26] MEDS: ACETAMINOPHEN 1,000 MG/100 ML 1,000 MG/100 ML BAG IV PRN (17:33)
[2025-06-26] MEDS: ACETAMINOPHEN 500 MG TABLET PO SCH (18:26)
--- NOTE | 2025-06-26 18:48 | XRAY Report ---
EXAM: XR Abdomen 1 V DATE: 06/26/2025 5:42 PM PDT INDICATION: 89 years Female with abd pain TECHNIQUE: Frontal view of the abdomen. LIMITATION: None. COMPARISON: Chest x-ray dated 06/24/2020 FINDINGS: Bowel gas pattern: Unremarkable. Free intra-abdominal air: Not seen. Abdominal calcifications: No calcifications to suggest calculi are seen. Solid soft tissue structures: No signs of organomegaly or soft tissue mass. Osseous structures: Grossly intact. IMPRESSION: No definite calculi seen on this study. No signs of intestinal obstruction or perforation. There is new left lower lobe lung consolidation, follow-up chest radiograph may be obtained. Reviewed by: Jorge Painter MD on 06/26/2025 6:44 PM PDT Approved by: Jorge Painter MD on 06/26/2025 6:44 PM PDT Station ID: [id number]
[2025-06-26] MEDS: HYDROmorphone 1 MG/ML CARPUJECT IVP PRN (20:07)
[2025-06-26] MEDS: SOAP SUDS ENEMA 1 EACH RC ONE (20:35)
[2025-06-26] MEDS: MELATONIN 3 MG TABLET PO SCH (22:02)
--- NOTE | 2025-06-27 04:44 | PROVIDER PROGRESS NOTE ---
Bulkhead Carpenter Note Bulkhead Carpenter Note Bulkhead Carpenter Note: I recieved stat page for pain and tachycardia, patient had hip surgery on 06.22.25 on Left side, dramatic low Hb since surgery recieved 2 U PRBC, now c/o intermittent pain, as per RN who expressed concern for some blood at left hip joint, limited ability to evaluate hip joint in detail due to telemedicine coverage. Chart is reviewed, as per RN who has been trying to get hold of Dr Martines and notify ortho pedic surgery , considering no other source of bleeding , and some bleeding at site of dressing, as per RN contacting ortho surgeon are not successful - Will order CT Left hip to evaluate any etiology explains anemia and pain - Will order CTAP to evaluate acute etiology explaining anemia and patient's over symptoms - Will order Morphine for pain control - Although critical to have heparin for DVT prophylaxis, due to unexplained anemia, and ongoing active issues, hold/dc for now, if no concern for bleeding after review of imaging, can be restarted - I left voicemail to Dr Wilian Martines, requesting call back and updates
[2025-06-27 05:47] LABS: HCT - HEMATOCRIT 28.3 % (37.0-47.0); HGB - HEMOGLOBIN 9.0 g/dL (12.0-16.0); MEAN PLATELET VOLUME 10.1 fL (7.9-10.8); NRBC ABSOLUTE COUNT (AUTO) 0.05 x10^3/uL; NUCLEATED RED BLOOD CELLS AUTO 0.5 /100WBC; PLT - PLATELET COUNT 166 10^3/uL (130-450); RED CELL DISTRIBUTION WIDTH 17.1 % (12.0-15.0)
[2025-06-27] MEDS: MORPHINE 2 MG/ML CARPUJECT IVP PRN (05:57)
[2025-06-27 06:00] LABS: BUN - BLOOD UREA NITROGEN 38.0 mg/dL (6-20); CARBON DIOXIDE - CO2 21.0 mmol/L (21-32); CREATININE 1.8 mg/dL (0.6-1.3); GFR - MDRD 27.0 (>89); PHOSPHORUS 3.4 mg/dL (2.5-5.0)
--- NOTE | 2025-06-27 08:05 | CT Report ---
PROCEDURE: CT Abdomen/Pelvis WO INDICATIONS: evaluate for intraabdominal bleeding TECHNIQUE: A CT scan of the abdomen and pelvis was performed without the use of intravenous contrast. Images were recorded and evaluated at appropriate window settings. Reformats: coronal and sagittal. For radiation dose reduction, the following was used: automated exposure control, adjustment of mA and/or kV according to patient size. COMPARISON: CT abdomen and pelvis without contrast dated 06/22/2025, CT hip from the same time as this current study FINDINGS: Image quality: Diagnostic. Lower chest: Cardiomegaly, small bilateral pleural effusions, bibasilar atelectasis. Liver: No contour-deforming mass. Gallbladder: Absent Biliary tree: No intrahepatic or extrahepatic dilation, accounting for age. Spleen: No splenomegaly. Pancreas: No pancreatic ductal dilation. Adrenals: No adrenal nodule. Kidneys and ureters: No hydronephrosis. No contour-deforming mass. Stomach, bowel and peritoneum: No gastric or small bowel dilation. No abnormal wall thickening. No pathologic free fluid. No intra-abdominal hemorrhage identified. Lymph nodes: No central or retroperitoneal adenopathy. Vessels: No infrarenal aortic aneurysm. Reproductive organs: Uterus is surgically absent. No adnexal masses. Bladder: No abnormal bladder wall thickening. No calcified bladder stones. Pelvic lymph nodes: No adenopathy by size criteria. Bones: No aggressive osseous abnormality, total left hip arthroplasty. No acute fracture or dislocation.. Other: No significant ventral or inguinal hernia. Incompletely imaged bilateral left thigh hematoma, the lateral aspect not included in the [id number] and the hematoma continuing inferior to the lowest image obtained. IMPRESSION: 1. Cardiomegaly, bilateral pleural effusions which are small, bibasilar atelectasis. 2. No intra-abdominal hemorrhage identified. 3. No fracture or dislocation regarding the left hip. 4. Incompletely imaged lateral upper left thigh hematoma. Findings are concordant with preliminary interpretation provided by [facility]. Reviewed by: Cheko Hdz MD on 06/27/2025 8:02 AM PDT Approved by: Cheko Hdz MD on 06/27/2025 8:02 AM PDT Station ID: [id number]
--- NOTE | 2025-06-27 10:46 | CT Report ---
PROCEDURE: CT Lower Extremity LT WO INDICATIONS: left hip pain, recent left hip surgery TECHNIQUE: Noncontrast 3-mm axial sections acquired from the mid left iliac wing through the left femoral hip prosthesis with coronal and sagittal reformats. For radiation dose reduction, the following was used: automated exposure control, adjustment of mA and/or kV according to patient size. COMPARISON: CT abdomen and pelvis without contrast from the same date FINDINGS: Image quality: Excellent. Bones: Remote total left hip arthroplasty. No evidence of hardware failure or loosening. No periprosthetic fracture. Soft tissues: There is a minimally visualized lateral subcutaneous hematoma from the level of the greater trochanter inferiorly, minimally imaged on this study, predominantly outside of the [id number]. Impression: 1. Intact total hip prosthesis. No fracture or dislocation. 2. Minimally imaged lateral thigh hematoma. Findings are concordant with preliminary interpretation provided by [facility]. Reviewed by: Cheko Hdz MD on 06/27/2025 10:43 AM PDT Approved by: Cheko Hdz MD on 06/27/2025 10:43 AM PDT Station ID: [id number]
--- NOTE | 2025-06-27 11:10 | PROVIDER PROGRESS NOTE ---
Subjective Subjective Subjective: Patient was restless all evening. It is hard to discern what is causing her distress. Initially, she was pointing towards her stomach, and it has been about a week since she has had a bowel movement, since this was assumed to be the source. She then points to her left hip where her surgery was. This morning, patient is resting comfortably, and sleeping. She did not get much sleep last night. Daughter is at bedside, and states that when she does wake up and is not in pain, she is able to talk in sentences, and is a little bit more coherent which is different than prior. We talked about the possibility of an NG tube for feeding as she has been about 5 to 6 days without any nutrition. She would like to wait another 24 hours to see if her mentation improves. Diet: Regular previously; currently NPO due to mentation, will need [facility] evaluation when mentation improves Dispo: Likely SNF on discharge, pending clinical course DVT: Heparin Code: DNR Current Medications Current Medications Current Medications: Current Medications Generic Name Dose Route Start Last Admin Trade Name Joseph PRN Reason Stop Dose Admin Acetaminophen 650 mg 06/26/25 13:12 Acetaminophen 325 Mg Tablet PO Q6H PRN pain Atorvastatin Calcium 5 mg 06/21/25 21:00 06/26/25 22:01 Atorvastatin 10 Mg Tablet PO Not Given HS JANETTE Calamine 1 applic 06/24/25 14:59 06/24/25 17:30 Calamine/Zinc Oxide 177 Ml Bottle TOP 1 applic Q6HR PRN Administration ITCHING Docusate Sodium 100 mg 06/21/25 14:17 Docusate Sodium 100 Mg Capsule PO DAILY PRN Constipation Hydralazine HCl 100 mg 06/21/25 21:00 06/27/25 08:10 Hydralazine 25 Mg Tablet PO Not Given BID JANETTE Hydromorphone HCl 1 mg 06/26/25 18:58 06/27/25 08:09 Hydromorphone 1 Mg/Ml Carpuject IVP 1 mg Q2H PRN Administration Severe Pain (Level 7-10) Hydroxyzine Pamoate 25 mg 06/24/25 14:59 Hydroxyzine Pamoate 25 Mg Capsule PO QPM PRN ITCHING Dextrose/Sodium Chloride 1,000 mls @ 75 mls/hr 06/22/25 21:00 06/26/25 22:05 D5.45ns IV 75 mls/hr .[id number] JANETTE Administration Acetaminophen 1,000 mg in 100 mls @ 400 mls/hr 06/26/25 17:15 06/27/25 08:15 Acetaminophen IV 400 mls/hr Q6HR PRN Administration Moderate Pain (Level 4-6) Levothyroxine Sodium 88 mcg 06/22/25 07:00 06/27/25 07:09 Levothyroxine 88 Mcg Tablet PO Not Given QDAC JANETTE Lidocaine 1 patch 06/22/25 09:00 06/27/25 08:09 Lidocaine Patch 4% TOP 1 patch DAILY JANETTE Administration Lorazepam 0.5 mg 06/24/25 08:09 06/27/25 02:38 Lorazepam 2 Mg/Ml Vial IVP 0.5 mg Q4H PRN Administration Anxiety Melatonin 6 mg 06/26/25 21:00 06/26/25 22:02 Melatonin 3 Mg Tablet PO Not Given QPM JANETTE Mirtazapine 15 mg 06/21/25 21:00 06/26/25 22:02 Mirtazapine 15 Mg Tablet PO Not Given HS JANETTE Morphine Sulfate 2 mg 06/27/25 04:50 06/27/25 05:57 Morphine 2 Mg/Ml Carpuject IVP 2 mg Q2HR PRN Administration Severe Pain (Level 7-10) Nystatin 1 applic 06/21/25 14:17 06/25/25 09:44 Nystatin Powder 15 Gm TOP 1 applic TID PRN Administration rash Ondansetron HCl 4 mg 06/21/25 13:42 06/22/25 03:15 Ondansetron Odt 4 Mg Tablet TL 4 mg Q6HR PRN Administration Nausea / Vomiting Ondansetron HCl 4 mg 06/21/25 13:42 06/23/25 13:53 Ondansetron 4 Mg/2 Ml Vial IVP 4 mg Q6HR PRN Administration Nausea / Vomiting Oxycodone HCl 5 mg 06/22/25 22:00 06/23/25 15:29 Oxycodone 5 Mg Tablet PO 5 mg Q4HR PRN Administration Moderate Pain (Level 4-6) Prochlorperazine Edisylate 10 mg 06/23/25 08:38 06/26/25 09:02 Prochlorperazine 10 Mg/2 Ml Vial IVP 10 mg Q6HR PRN Administration Nausea / Vomiting Sodium Chloride 10 ml 06/21/25 13:40 06/26/25 05:07 Sodium Chloride Flush 0.9% 10 Ml Syringe IVP 10 ml PRN PRN Administration NEEDED PER PROVIDER ORDERS Sodium Chloride 10 ml 06/21/25 17:00 06/27/25 08:10 Sodium Chloride Flush 0.9% 10 Ml Syringe IVP 10 ml 0100,0900,1700 JANETTE Administration Objective Vital Signs/Intake & Output Reviewed Vital Signs: Yes Vital Signs: Vital Signs x48h Temp Pulse Resp BP Pulse Ox O2 Flow Rate 06/27/25 07:00 2 06/27/25 05:01 98.2 F 106 H 24 161/80 H 96 2 Intake & Output: Intake & Output 06/24/25 06/25/25 06/26/25 06/27/25 23:59 23:59 23:59 23:59 Intake Total 2475 / 2475 2765 / 2765 2296 / 2296 200 / 200 Output Total 501 / 501 930 / 930 2910 / 2910 550 / 550 Balance 1974 / 1974 1835 / 1835 -614 / -614 -350 / -350 Objective General Appearance: positive Moderate distress and Anxious; negative Alert Eyes Bilateral: positive Normal inspection and PERRL ENT: positive ENT inspection nml, Pharynx nml and No signs of dehydration Neck: positive Nml inspection, Thyroid nml and No JVD Respiratory: positive Chest non-tender, No respiratory distress, Breath sounds nml and Rales (Mild bibasilar rales); negative Wheezes or Rhonchi Cardiovascular: positive No murmur, No gallop, Irregularly irregular and Tachycardia; negative Systolic murmur Abdomen: positive No organomegaly and No distention; negative Non-tender (Mildly tender epigastric region), Guarding or Splenomegaly Back: positive Nml inspection; negative CVA tenderness (R) or CVA tenderness (L) Skin: positive Color nml, No rash, Warm and Dry Extremities: positive Nml appearance and No pedal edema; negative Non-tender (Tender in left lower hip ) Neurologic/Psychiatric: positive Disoriented to person, Disoriented to place, Disoriented to time and Weakness Comments/Other: Extremities: Expected postoperative changes in left lower extremity. No purulence or drainage around her surgical wounds. Lab Results 06/27/25 04:46 06/27/25 04:46 Other Labs: Lab Results x24hrs 06/27/25 Range/Units 04:46 WBC 9.6 (4.8-10.8) x10^3/uL RBC 2.82 L (4.20-5.40) 10^6/uL Hgb 9.0 L (12.0-16.0) g/dL Hct 28.3 L (37.0-47.0) % MCV 100.4 H (81.0-99.0) fL MCH 31.9 H (27.0-31.0) pg MCHC 31.8 L (32.0-36.0) g/dL RDW 17.1 H (12.0-15.0) % Plt Count 166 (130-450) 10^3/uL MPV 10.1 (7.9-10.8) fL Neut # (Auto) 7.4 H (1.5-6.6) 10^3/uL Lymph # (Auto) 0.8 L (1.5-3.5) 10^3/uL Beltrami # (Auto) 0.8 (0.0-1.0) 10^3/uL Eos # (Auto) 0.4 (0.0-0.7) 10^3/uL Baso # (Auto) 0.1 (0.0-0.1) 10^3/uL Absolute Nucleated RBC 0.05 x10^3/uL Nucleated RBC % 0.5 /100WBC Sodium 136 (135-145) mmol/L Potassium 4.4 (3.5-4.5) mmol/L Chloride 109 (101-111) mmol/L Carbon Dioxide 21 (21-32) mmol/L Anion Gap 6.0 (6-13) BUN 38 H (6-20) mg/dL Creatinine 1.8 H (0.6-1.3) mg/dL Estimated GFR (MDRD) 27 L (>89) Glucose 99 (74-104) mg/dL Calcium 7.6 L (8.5-10.3) mg/dL Phosphorus 3.4 (2.5-5.0) mg/dL Magnesium 2.1 (1.7-2.3) mg/dL Sepsis Event Note (H) Evaluation Current Stage of Sepsis: Septic shock Possible source of Sepsis: positive Unknown Sepsis Criteria Sepsis Criteria: WBC count greater than 12,000 or less than 4000, MAP less than 65 mmHg and Metabolic: lactate > 2 mmol/L Assessment/Plan Problem List (1) Acute metabolic encephalopathy: Impression: At baseline, although patient does have Alzheimer's dementia, she is able to converse in short sentences. Her memory is poor, but she is able to feed herself, and interact meaningfully. Over the last few days, she has been moaning in pain, and continues to be altered. At times, she is able to say a few short phrases. Unclear where pain is exactly. Patient has not had a bowel movement in over 7 days. As such, x-ray of the abdomen was done, followed by CT abdomen/pelvis. This did not show any obstruction, ileus, retroperitoneal hematoma. Suppository was placed 06/26 with some manual disimpaction and stool output. CT of the hip was also completed which shows a hematoma, and postsurgical changes that were expected. Her Dilaudid was increased from 0.5 mg every 2 hours to 1 mg every 2 hours as needed for severe pain. She is also maintained on IV Tylenol as needed for moderate pain. Maintain strict delirium precautions. Lights on during the day, off at night, family at bedside, continuous reorientation, scheduled melatonin if able to swallow. (2) Shock: Impression: Resolved. Likely due to hypovolemic shock, acute blood loss anemia after surgery. Hemoglobin dropped to 5.7 from 11.1 on admission. Received 2 units of blood initially. On 06/25, repeat was 6.8, 1 more unit of blood was given. It is now stable around 9. Weaned off of Levophed and vasopressin. Continue IV fluid resuscitation. Less likely septic shock. Afebrile, normal white count. Cefepime and Flagyl were discontinued on 06/25, continue to monitor off antibiotics. (3) Acute blood loss anemia: Impression: See above. (4) NAOMI (acute kidney injury): Impression: Likely ATN, due to hypoperfusion in setting of hypotension as above. Continue IV fluids. Improving. (5) Femoral neck fracture: Impression: S/p surgical repair 06/22. Complicated by acute blood loss anemia as above. Recall that etiology of her fracture was from mechanical ground-level fall. She tripped on her nightgown. She has x-ray confirmed a left subcapital femoral neck fracture. Continue heparin for VTE prophylaxis. Physical therapy evaluation, likely tomorrow. Qualifiers: Encounter type: initial encounter Fracture type: closed Laterality: l eft Qualified Code(s): S72.002A - Fracture of unspecified part of neck of left femur, initial encounter for closed fracture (6) Dysphagia: Impression: Patient is having a difficult time swallowing. Part of this may be due to her altered mentation and delirium, which is hopefully reversible. Speech therapy is following. However, she was not alert enough to actively participate in the evaluation. Will reconsult when patient is more willing. Currently receiving D5/sodium chloride. If her mentation does not improve in the next 24 to 48 hours, she will likely need a NG tube, and tube feeds. Qualifiers: Dysphagia type: unspecified Qualified Code(s): R13.10 - Dysphagia, unspecified (7) Dementia: Impression: Complicating her ICU stay. Experiencing delirium currently. Moderate Alzheimer's dementia. Patient lives in memory care. She still is able to feed herself. She is still on memantine. She has some mood disturbance and insomnia necessitating nightly mirtazapine. She has done well with this. Only recently started. Continue mirtazapine nightly. As needed anxiolytics available. Qualifiers: Alzheimer's disease onset: late onset Dementia behavioral or psychological symptom: with mood disturbance Dementia severity: moderate D ementia type: Alzheimer's Qualified Code(s): G30.1 - Alzheimer's disease with late onset; F02.B3 - Dementia in other diseases classified elsewhere, moderate, with mood disturbance (8) Atrial fibrillation: Impression: Notably she is not on any anticoagulation. Her daughter seems to remember that after she had several falls, that she was taken off of anticoagulation because of her increased bleeding risk. This was several years ago. Tachycardic at times. Anticoagulation as above. Not on any rate controlling agents. Qualifiers: Atrial fibrillation type: longstanding persistent Qualified Code(s): I 48.11 - Longstanding persistent atrial fibrillation (9) Hypertension: Impression: Blood pressure medications currently on hold. Continue to hold Coreg, hydralazine, amlodipine. Will reintroduce one at a time when patient able to swallow safely. Qualifiers: Hypertension type: primary hypertension Qualified Code(s): I10 - Essential (primary) hypertension
--- NOTE | 2025-06-27 20:37 | CT Report ---
EXAM: CT Abdomen/Pelvis WO DATE: 06/26/2025 6:57 PM PDT INDICATION: 89 years Female with abd pain TECHNIQUE: Using MDCT technique, axial images were obtained through the abdomen and pelvis, from the bases of the lungs through the pubic symphysis, without the intravenous administration of contrast. Sagittal and coronal MPR reconstructions were performed. Scan was performed in compliance with NEMA XR 29-213 Dose Limiting Standard. In accordance with CT protocol optimization, one or more of the following dose reduction techniques were utilized for this exam: automated exposure control, adjustment of mA and/or KV based on patient size, or use of iterative reconstructive technique. PROTOCOL: Routine LIMITATION: None. COMPARISON: None available. FINDINGS: Lung bases and visualized mediastinum: Small bilateral pleural effusions and mild bilateral basilar artery disease. Cardiomegaly. Liver: No significant focal lesion seen. Spleen: No significant focal lesion seen. Pancreas: No significant focal lesion seen. Gallbladder and bile ducts: There is no significant biliary dilatation postcholecystectomy. Adrenal glands: No significant focal lesion seen. Kidneys and ureters: No calculi, hydronephrosis, or suspicious focal lesions are seen. GI tract, mesentery, and peritoneum: No significant lesion seen. Upper abdomen and retroperitoneal spaces: No significant adenopathy or other mass seen. Vascular structures: The abdominal aorta, major visceral branches and iliac arteries are normal in caliber. Urinary bladder: No significant focal lesion seen. Reproductive organs: A normal size uterus is not seen. No adnexal mass seen. Inguinal regions and abdominal wall: There is large confluent soft tissue density in the superficial fat in the left hip region laterally extending in the left lateral pelvic region measuring approximately 23 cm in craniocaudal extent and up to 4 cm in AP diameter, mediolateral extent is not fully imaged. Osseous structures: No significant focal lesion seen. IMPRESSION: 1. There is a large superficial hematoma in the left hip and pelvic region laterally, likely due to recent left total hip arthroplasty. 2. No acute intra-abdominal abnormality otherwise. Reviewed by: Jorge Painter MD on 06/27/2025 8:34 PM PDT Approved by: Jorge Painter MD on 06/27/2025 8:34 PM PDT Station ID: [id number]
[2025-06-28 05:24] LABS: HCT - HEMATOCRIT 29.5 % (37.0-47.0); HGB - HEMOGLOBIN 9.2 g/dL (12.0-16.0); MEAN PLATELET VOLUME 10.0 fL (7.9-10.8); PLT - PLATELET COUNT 185.0 10^3/uL (130-450); RED CELL DISTRIBUTION WIDTH 17.0 % (12.0-15.0)
[2025-06-28 05:45] LABS: BUN - BLOOD UREA NITROGEN 34.0 mg/dL (6-20); CARBON DIOXIDE - CO2 22.0 mmol/L (21-32); CREATININE 1.4 mg/dL (0.6-1.3); GFR - MDRD 35.0 (>89)
[2025-06-28] MEDS: KETOROLAC 15 MG/ML VIAL IVP STA ×2 (10:52→17:37)
--- NOTE | 2025-06-28 11:15 | PROVIDER PROGRESS NOTE ---
Subjective Subjective Subjective: Patient was restless all evening. It is hard to discern what is causing her distress. Initially, she was pointing towards her stomach, and then points to her left hip where her surgery was. Overnight, she was again, extremely restless. She also appears to be itchy, and was able to take off her Band-Aid where her hip surgery was and was poking at her incision. This morning, she is a little calmer, and redirectable. When her daughter was spoken with, she states that she does normally have a very low pain threshold. She had frozen shoulder once, and had a similar reaction, although not as prolonged. It has now been about 5 days without any adequate nutrition. Daughter would like to give her another 24 hours before NG tube insertion and tube feeds. We spoke about how now it has been about a week since she has been without nutrition. She is likely not going to tolerate the NG tube well, will pull out it, and we may need to employ physical or chemical restraints to keep this in place. Daughter is aware. Diet: Regular previously; currently NPO due to mentation, unable to participate meaninfully in ENVIRONMENTAL HEALTH AIDE evaluation 06/28 Dispo: Likely SNF on discharge, pending clinical course DVT: Heparin Code: DNR Current Medications Current Medications Current Medications: Current Medications Generic Name Dose Route Start Last Admin Trade Name Freq PRN Reason Stop Dose Admin Acetaminophen 650 mg 06/26/25 13:12 Acetaminophen 325 Mg Tablet PO Q6H PRN pain Atorvastatin Calcium 5 mg 06/21/25 21:00 06/27/25 20:29 Atorvastatin 10 Mg Tablet PO Not Given HS JANETTE Calamine 1 applic 06/24/25 14:59 06/24/25 17:30 Calamine/Zinc Oxide 177 Ml Bottle TOP 1 applic Q6HR PRN Administration ITCHING Docusate Sodium 100 mg 06/21/25 14:17 Docusate Sodium 100 Mg Capsule PO DAILY PRN Constipation Hydralazine HCl 100 mg 06/21/25 21:00 06/28/25 08:38 Hydralazine 25 Mg Tablet PO Not Given BID JANETTE Hydromorphone HCl 1 mg 06/26/25 18:58 06/28/25 08:50 Hydromorphone 1 Mg/Ml Carpuject IVP 1 mg Q2H PRN Administration Severe Pain (Level 7-10) Hydroxyzine Pamoate 25 mg 06/24/25 14:59 Hydroxyzine Pamoate 25 Mg Capsule PO QPM PRN ITCHING Dextrose/Sodium Chloride 1,000 mls @ 75 mls/hr 06/22/25 21:00 06/28/25 06:42 D5.45ns IV 75 mls/hr .[id number] JANETTE Administration Acetaminophen 1,000 mg in 100 mls @ 400 mls/hr 06/26/25 17:15 06/28/25 10:52 Acetaminophen IV 400 mls/hr Q6HR PRN Administration Moderate Pain (Level 4-6) Levothyroxine Sodium 88 mcg 06/22/25 07:00 06/28/25 06:29 Levothyroxine 88 Mcg Tablet PO Not Given QDAC JANETTE Lidocaine 1 patch 06/22/25 09:00 06/28/25 08:51 Lidocaine Patch 4% TOP 1 patch DAILY JANETTE Administration Melatonin 6 mg 06/26/25 21:00 06/27/25 20:29 Melatonin 3 Mg Tablet PO Not Given QPM JANETTE Mirtazapine 15 mg 06/21/25 21:00 06/27/25 20:30 Mirtazapine 15 Mg Tablet PO Not Given HS JANETTE Nystatin 1 applic 06/21/25 14:17 06/25/25 09:44 Nystatin Powder 15 Gm TOP 1 applic TID PRN Administration rash Olanzapine 5 mg 06/27/25 18:00 06/27/25 22:38 Olanzapine Odt 5 Mg Tablet TL Not Given QPM JANETTE Ondansetron HCl 4 mg 06/21/25 13:42 06/22/25 03:15 Ondansetron Odt 4 Mg Tablet TL 4 mg Q6HR PRN Administration Nausea / Vomiting Ondansetron HCl 4 mg 06/21/25 13:42 06/23/25 13:53 Ondansetron 4 Mg/2 Ml Vial IVP 4 mg Q6HR PRN Administration Nausea / Vomiting Oxycodone HCl 5 mg 06/22/25 22:00 06/23/25 15:29 Oxycodone 5 Mg Tablet PO 5 mg Q4HR PRN Administration Moderate Pain (Level 4-6) Prochlorperazine Edisylate 10 mg 06/23/25 08:38 06/28/25 06:42 Prochlorperazine 10 Mg/2 Ml Vial IVP 10 mg Q6HR PRN Administration Nausea / Vomiting Sodium Chloride 10 ml 06/21/25 13:40 06/28/25 04:10 Sodium Chloride Flush 0.9% 10 Ml Syringe IVP 10 ml PRN PRN Administration NEEDED PER PROVIDER ORDERS Sodium Chloride 10 ml 06/21/25 17:00 06/28/25 08:51 Sodium Chloride Flush 0.9% 10 Ml Syringe IVP 10 ml 0100,0900,1700 JANETTE Administration Objective Vital Signs/Intake & Output Reviewed Vital Signs: Yes Vital Signs: Vital Signs x48h Temp Pulse Resp BP Pulse Ox O2 Flow Rate 06/28/25 07:55 98.4 F 110 H 20 179/80 H 94 2 Intake & Output: Intake & Output 06/25/25 06/26/25 06/27/25 06/28/25 23:59 23:59 23:59 23:59 Intake Total 2765 / 2765 2296 / 2296 1500 / 1500 1100 / 1100 Output Total 930 / 930 2910 / 2910 2825 / 2825 600 / 600 Balance 1835 / 1835 -614 / -614 -1325 / -1325 500 / 500 Objective General Appearance: positive Moderate distress and Anxious; negative Alert Eyes Bilateral: positive Normal inspection and PERRL ENT: positive ENT inspection nml, Pharynx nml and No signs of dehydration Neck: positive Nml inspection, Thyroid nml and No JVD Respiratory: positive Chest non-tender, No respiratory distress, Breath sounds nml and Rales (Mild bibasilar rales); negative Wheezes or Rhonchi Cardiovascular: positive No murmur, No gallop, Irregularly irregular and Tachycardia; negative Systolic murmur Abdomen: positive No organomegaly and No distention; negative Non-tender (Mildly tender epigastric region), Guarding or Splenomegaly Back: positive Nml inspection; negative CVA tenderness (R) or CVA tenderness (L) Skin: positive Color nml, No rash, Warm and Dry Extremities: positive Nml appearance and No pedal edema; negative Non-tender (Tender in left lower hip ) Neurologic/Psychiatric: positive Disoriented to person, Disoriented to place, Disoriented to time and Weakness Comments/Other: Extremities: Expected postoperative changes in left lower extremity. No purulence or drainage around her surgical wounds. Lab Results 06/28/25 04:49 06/28/25 04:49 Other Labs: Lab Results x24hrs 06/28/25 Range/Units 04:49 WBC 9.4 (4.8-10.8) x10^3/uL RBC 2.89 L (4.20-5.40) 10^6/uL Hgb 9.2 L (12.0-16.0) g/dL Hct 29.5 L (37.0-47.0) % MCV 102.1 H (81.0-99.0) fL MCH 31.8 H (27.0-31.0) pg MCHC 31.2 L (32.0-36.0) g/dL RDW 17.0 H (12.0-15.0) % Plt Count 185 (130-450) 10^3/uL MPV 10.0 (7.9-10.8) fL Sodium 138 (135-145) mmol/L Potassium 4.5 (3.5-4.5) mmol/L Chloride 111 (101-111) mmol/L Carbon Dioxide 22 (21-32) mmol/L Anion Gap 5.0 L (6-13) BUN 34 H (6-20) mg/dL Creatinine 1.4 H (0.6-1.3) mg/dL Estimated GFR (MDRD) 35 L (>89) Glucose 112 H (74-104) mg/dL Calcium 8.0 L (8.5-10.3) mg/dL Magnesium 2.1 (1.7-2.3) mg/dL Sepsis Event Note (H) Evaluation Current Stage of Sepsis: Septic shock Possible source of Sepsis: positive Unknown Sepsis Criteria Sepsis Criteria: WBC count greater than 12,000 or less than 4000, MAP less than 65 mmHg and Metabolic: lactate > 2 mmol/L Assessment/Plan Problem List (1) Acute metabolic encephalopathy: Impression: At baseline, although patient does have Alzheimer's dementia, she is able to converse in short sentences. Her memory is poor, but she is able to feed herself, and interact meaningfully. Over the last few days, she has been moaning in pain, and continues to be altered. At times, she is able to say a few short phrases. Pain alternates from abdomen to hip, although patient is a poor historian. Patient has not had a bowel movement in over 7 days. As such, x-ray of the abdomen was done, followed by CT abdomen/pelvis. This did not show any obstruction, ileus, retroperitoneal hematoma. Suppository was placed 06/26 with some manual disimpaction and stool output. CT of the hip was also completed which shows a hematoma, and postsurgical changes that were expected. Spoke with orthopedic surgeon today, 06/28, regarding this CT, and he is in agreement. Will trial fentanyl patch, 25 mcg, for slow and sustained pain control. Continue IV Dilaudid every 6 hours for breakthrough pain. She is also continued on IV Tylenol. Maintain strict delirium precautions. Lights on during the day, off at night, family at bedside, continuous reorientation, scheduled melatonin if able to swallow. Continue Zyprexa at night. (2) Shock: Impression: Resolved. Likely due to hypovolemic shock, acute blood loss anemia after surgery. Hemoglobin dropped to 5.7 from 11.1 on admission. Received 2 units of blood initially. On 06/25, repeat was 6.8, 1 more unit of blood was given. It is now stable around 9. Weaned off of Levophed and vasopressin. Continue IV fluids. Less likely septic shock. Afebrile, normal white count. Cefepime and Flagyl were discontinued on 06/25, continue to monitor off antibiotics. (3) Dysphagia: Impression: Patient is having a difficult time swallowing, is not following cues. This is likely entirely due her altered mentation and delirium, which is hopefully reversible. Speech therapy is following. However, she was not alert enough to actively participate in the evaluation. Will reconsult when appropiate. Currently receiving D5/sodium chloride. If her mentation does not improve in the next 24 to 48 hours, she will likely need a NG tube, and tube feeds. Qualifiers: Dysphagia type: unspecified Qualified Code(s): R13.10 - Dysphagia, unspecified (4) Acute blood loss anemia: Impression: See above. (5) NAOMI (acute kidney injury): Impression: Likely ATN, due to hypoperfusion in setting of hypotension as above. Continue IV fluids. Improving. (6) Femoral neck fracture: Impression: S/p surgical repair 06/22. Complicated by acute blood loss anemia as above. Recall that etiology of her fracture was from mechanical ground-level fall. She tripped on her nightgown. She has x-ray confirmed a left subcapital femoral neck fracture. Continue heparin for VTE prophylaxis. Physical therapy evaluation when mentation improves. Qualifiers: Encounter type: initial encounter Fracture type: closed Laterality: l eft Qualified Code(s): S72.002A - Fracture of unspecified part of neck of left femur, initial encounter for closed fracture (7) Dementia: Impression: Complicating her stay. Experiencing delirium currently. Moderate Alzheimer's dementia. Patient lives in memory care. She still is able to feed herself. She is still on memantine. She has some mood disturbance and insomnia necessitating nightly mirtazapine. She has done well with this. Only recently started. Continue mirtazapine nightly. As needed anxiolytics available. Qualifiers: Alzheimer's disease onset: late onset Dementia behavioral or psychological symptom: with mood disturbance Dementia severity: moderate D ementia type: Alzheimer's Qualified Code(s): G30.1 - Alzheimer's disease with late onset; F02.B3 - Dementia in other diseases classified elsewhere, moderate, with mood disturbance (8) Atrial fibrillation: Impression: Notably she is not on any anticoagulation. Her daughter seems to remember that after she had several falls, that she was taken off of anticoagulation because of her increased bleeding risk. This was several years ago. Tachycardic at times. Anticoagulation as above. Not on any rate controlling agents. Qualifiers: Atrial fibrillation type: longstanding persistent Qualified Code(s): I 48.11 - Longstanding persistent atrial fibrillation (9) Hypertension: Impression: Blood pressure medications currently on hold. Continue to hold Coreg, hydralazine, amlodipine. Will reintroduce one at a time when patient able to swallow safely. Her blood pressure has continued to be elevated. Will add IV labetolol for blood pressure >180. Qualifiers: Hypertension type: primary hypertension Qualified Code(s): I10 - Essential (primary) hypertension
--- NOTE | 2025-06-28 11:33 | POST OP PROGRESS NOTE ---
Subjective General Admit Date: 06/21/25 Procedure Performed: Hip hemiarthroplasty Ortho Surgical Progress Note Problem List Problem List: I reviewed the CT scan that was done the other day and it looks excellent the hip prosthesis is well-placed. The patient can be weightbearing as tolerated. Exam Exam Vital Signs: Vital Signs x48h Temp Pulse Resp BP Pulse Ox O2 Flow Rate 06/28/25 07:55 36.9 C 110 H 20 179/80 H 94 2 The patient continues to have some drainage in the left hip. There is no erythema no signs and symptoms of any infection. She continues to be demented as well
[2025-06-28] MEDS: fentaNYL 25 MCG PATCH TOP SCH (11:53)
[2025-06-28] MEDS: HYDROmorphone 1 MG/ML CARPUJECT IVP PRN ×2 (13:56→17:17)
[2025-06-28] MEDS: HYDROmorphone 1 MG/ML CARPUJECT IVP ONE (17:21)
[2025-06-28] MEDS: HALOPERIDOL 5 MG/ML VIAL IVP PRN (22:48)
[2025-06-29 06:28] LABS: HCT - HEMATOCRIT 27.6 % (37.0-47.0); HGB - HEMOGLOBIN 8.8 g/dL (12.0-16.0); MEAN PLATELET VOLUME 9.9 fL (7.9-10.8); PLT - PLATELET COUNT 180.0 10^3/uL (130-450); RED CELL DISTRIBUTION WIDTH 17.1 % (12.0-15.0)
[2025-06-29 06:46] LABS: BUN - BLOOD UREA NITROGEN 30.0 mg/dL (6-20); CARBON DIOXIDE - CO2 23.0 mmol/L (21-32); CREATININE 1.3 mg/dL (0.6-1.3); GFR - MDRD 39.0 (>89)
[2025-06-29] MEDS: HEPARIN 5,000 UNIT/ML VIAL SUBQ SCH (08:36)
[2025-06-29] MEDS: LABETALOL 20 MG/4 ML SYRINGE IVP PRN (08:37)
--- NOTE | 2025-06-29 12:21 | ADVANCE CARE PLANNING NOTE ---
Advance Care Planning Planning Encounter Date: 06/29/25 Time: 12:26 Purpose: Establish care goals Parties in Attendance: Daughter and DPOA, Fide Fraser @[phone]; hospitalist; DNP student Judy Ayala Decisional Capacity of the Patient: Unable to participate in shared decision due to dementia, pain, and disorientation Diagnosis for Encounter (1) Acute metabolic encephalopathy: (2) Shock: (3) Dysphagia: Qualifiers: Dysphagia type: unspecified Qualified Code(s): R13.10 - Dysphagia, unspecified (4) Acute blood loss anemia: (5) NAOMI (acute kidney injury): (6) Femoral neck fracture: Qualifiers: Encounter type: initial encounter Fracture type: closed Laterality: left Qualified Code(s): S72.002A - Fracture of unspecified part of neck of left femur, initial encounter for closed fracture (7) Dementia: Qualifiers: Alzheimer's disease onset: late onset Dementia behavioral or psychological symptom: with mood disturbance Dementia severity: moderate Dementia type: Alzheimer's Qualified Code(s): G30.1 - Alzheimer's disease with late onset; F02.B3 - Dementia in other diseases classified elsewhere, moderate, with mood disturbance Summary: Mild to moderate dementia, present for over 15 years. (8) Atrial fibrillation: Qualifiers: Atrial fibrillation type: longstanding persistent Qualified Code(s): I48.11 - Longstanding persistent atrial fibrillation (9) Hypertension: Qualifiers: Hypertension type: primary hypertension Qualified Code(s): I10 - Essential (primary) hypertension Encounter Subjective/Patient's Story: This jonnathan lady was born and raised on the [facility] and lost her approximately 18 years ago due to his illness. 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 She has 2 daughters and 1 son. She had already been exhibiting cognitive deficits 18 years ago around the of her . Her youngest child, son, moved in with her a few months before her 's . After the of her , it is described as a stable loving relationship. He was very comfortable doing all the supervisor marble, keeping tabs on her, but she was still independent enough that he let her drive. She was able to feed herself, dress herself. She even cook for him. About 6 years ago she began having more dementia. Her son was uncomfortable at the idea of the physical contact required to take care of her. In other words he did not feel comfortable being responsible for having her bathed, dressed. Around that time, was considering retiring. She lived in [facility] at that time. She would come home every year and visit with her mom and her brother. She noticed that her mom was getting progressively more forgetful. Requiring more prompting and cues, and her brother was uncomfortable with that. So faviola had a conference and they all decided to move mom, and and mom has been living with Ms Fraser since that time. She describes her mom is very pleasant. She has a caregiver, Winifred, the comes daily. They do things like coloring book, take walks, Play tic-tac-toe and Winifred is more companionship than anything else. Mom has long-term care insurance that was set up at the time of her 's . Ms. Heath is described as very vivacious, interactive. She occasionally uses a 4-prong cane but rarely. She loves to fold her laundry. She does get forgetful with how to put on clothes, and sometimes will put on 3 pairs of pants at a time but is able to get dressed. She needs prompting with bathing, she is occasionally incontinent. She makes her bed every morning. Appetite is very good and she eats everything put in front of her. She is able to feed herself. Ms. Fraser placed mom in [facility] assisted living facility for respite care. That was because she was going on a cruise to [place] and was gone for a little bit over 2 weeks. Mom did really well at [facility]. There were no incidents. She even has pictures that the [facility] staff sent her where mom is doing great. On the day she went to go clam picker her mom from the [facility], the patient fell. Since that time, and after surgery, there has been a sharp and rapid deterioration with delirium. She seems to have forgotten how to swallow her food. She is completely disoriented. Fearful. Crying. Fentanyl was tried and it looks like it may have worked but the patient has been taking out her IVs, pulling off pulse oximetry. Today, Evelio was trying to clean her mom's mouth; they used a sponge. Patient took the sponge out of her daughter's hand, and, on her own, cleaned out her mouth. The patient is asking for ice or ice cream. The patient is DO NOT RESUSCITATE. There is a POLST form in the chart. Focus is on palliative or comfort measures. Daughter states that they still want that but they do feel that that they are not ready to let mom go right now. I have was asking about placing a tube feed to feeder, but daughter would like to try and challenge the patient with oral feeding. She might do better now since it has been even longer time from anesthesia. Daughter also states that they would like to have better pain control. They thi nk that the pain is very destabilizing for the patient. It makes her agitated, more confused, and this is definitely not her baseline.They also feel that if we need to, soft wrist restraints are acceptable to them so that mom does not pull off IVs. Objective/Medical Story: Fide Heath is an 89-year-old female with past medical history notable for hypertension, Alzheimer's dementia, hypothyroidism, and insomnia who presents following a ground-level fall at her facility. She is found to have a femoral neck fracture. She is admitted for left femoral neck fracture. Patient had a mechanical ground-level fall at her facility. She lives at a memory care facility. She got up from bed and tripped on her nightgown falling onto her left hip. She did not lose consciousness. She did not strike her head. She not feel dizzy prior to falling. She is not on any blood thinners. Apparently in the ED, she was having profound pain in her left hip. She does not remember the fall. Given her dementia, she she does not remember why her butt hurts. She is putting pressure on her left hip because he she says it makes it feel better. She is unable to bear any weight in the community. She denies any fevers or chills, dysuria, urinary frequency, diarrhea, nausea or vomiting. Otherwise she has a history of hypertension, this is managed with multiple agents. Apparently she was doing well in the outpatient community and has been back down on her hydralazine to twice daily from 3 times daily. Regarding her dementia, it is moderate. She has difficulty with completing some of her ADLs. She does feed herself, she dresses herself. She toilets and bathes with prompting. She is on memantine. Otherwise was started on mirtazapine by her primary care doctor for treatment of sleep disturbance in the setting of her dementia. Continues to be restless. It is hard to discern what is causing her distress. Initially, she was pointing towards her stomach, and then points to her left hip where her surgery was. She mumbles. And is fretful and intermittently tearful. She apologizes that she did not make her bed this morning.She needs constant prompting, cueing, and soothing. We need to remind her that she is in the hospital and that she broke her hip. Overnight, she was again, extremely restless. She keeps on removing all leads, yanking out the IV. She also appears to be itchy, and was able to take off her Band-Aid where her hip surgery was and was poking at her incision. It has now been about 6 days without any adequate nutrition. Daughter would like to challenge with oral feeding first. If that does not work then we can go to NG tube with wrist restraints. Goals of Care: The major goal that daughter would like us to focus on right now is pain control. No tube feedings for right now, challenged with oral feeds Plan: 1. Change Tylenol to scheduled dosing. 2. Changed oxycodone 5 mg to scheduled dosing 3. Continue Dilaudid 1 mg IVP every 4 hours as needed 4. Give Colace daily since the patient does have a history of constipation and has already gotten 1 enema 5. Start with a mechanical soft diet with standby at the bedside to make sure she can swallow and not choke 6. Continue to work with speech therapy who will see her again tomorrow 7. No tube feeds for today Code Status: Do Not Attempt Resuscitation Time spent on advance care plannin minutes
--- NOTE | 2025-06-29 12:56 | PROVIDER PROGRESS NOTE ---
Subjective Prog Note Date Prog Note Date: 06/29/25 Prog Note Time: 10:00 Subjective Subjective: This jonnathan elderly female is with eyes open when I walk in the room. She does look to me when I call her name and introduced myself. She is immediately fretful, tearful. Low mumbling voice that I can only understand every third word. She tells me that she does hurt. She uses her left hand to try and fumble at the bandage in her left hip. Nursing reports that she pulled her IV out. Wants to take her gown off. Keeps on picking at her bandage. Does respond to prompting and voice cues but not for very long. Current Medications Current Medications Current Medications: Current Medications Generic Name Dose Route Start Last Admin Trade Name Freq PRN Reason Stop Dose Admin Acetaminophen 650 mg 06/29/25 13:00 Acetaminophen 325 Mg Tablet PO Q6H JANETTE Atorvastatin Calcium 5 mg 06/21/25 21:00 06/28/25 20:47 Atorvastatin 10 Mg Tablet PO Not Given HS JANETTE Calamine 1 applic 06/24/25 14:59 06/24/25 17:30 Calamine/Zinc Oxide 177 Ml Bottle TOP 1 applic Q6HR PRN Administration ITCHING Docusate Sodium 100 mg 06/21/25 14:17 Docusate Sodium 100 Mg Capsule PO DAILY PRN Constipation Haloperidol 5 mg 06/28/25 17:14 06/28/25 22:48 Haloperidol 5 Mg/Ml Vial IVP 5 mg QPM PRN Administration Agitation Heparin Sodium (Porcine) 5,000 unit 06/29/25 09:00 06/29/25 08:36 Heparin 5,000 Unit/Ml Vial SUBQ 5,000 unit BID JANETTE Administration Hydralazine HCl 100 mg 06/21/25 21:00 06/29/25 08:29 Hydralazine 25 Mg Tablet PO Not Given BID JANETTE Hydromorphone HCl 1 mg 06/28/25 17:13 06/29/25 12:43 Hydromorphone 1 Mg/Ml Carpuject IVP 1 mg Q4HR PRN Administration Breakthrough Pain Hydroxyzine Pamoate 25 mg 06/24/25 14:59 Hydroxyzine Pamoate 25 Mg Capsule PO QPM PRN ITCHING Dextrose/Sodium Chloride 1,000 mls @ 75 mls/hr 06/22/25 21:00 06/29/25 01:47 D5.45ns IV Not Given .[id number] JANETTE Acetaminophen 1,000 mg in 100 mls @ 400 mls/hr 06/26/25 17:15 06/29/25 12:44 Acetaminophen IV 400 mls/hr Q6HR PRN Administration Moderate Pain (Level 4-6) Labetalol HCl 10 mg 06/28/25 13:47 06/29/25 08:37 Labetalol 20 Mg/4 Ml Syringe IVP 10 mg Q6HR PRN Administration Systolic BP >180 Levothyroxine Sodium 88 mcg 06/22/25 07:00 06/29/25 07:20 Levothyroxine 88 Mcg Tablet PO Not Given QDAC JANETTE Lidocaine 1 patch 06/22/25 09:00 06/29/25 08:36 Lidocaine Patch 4% TOP 1 patch DAILY JANETTE Administration Melatonin 6 mg 06/26/25 21:00 06/28/25 20:47 Melatonin 3 Mg Tablet PO Not Given QPM JANETTE Mirtazapine 15 mg 06/21/25 21:00 06/28/25 20:47 Mirtazapine 15 Mg Tablet PO Not Given HS JANETTE Nystatin 1 applic 06/21/25 14:17 06/25/25 09:44 Nystatin Powder 15 Gm TOP 1 applic TID PRN Administration rash Ondansetron HCl 4 mg 06/21/25 13:42 06/22/25 03:15 Ondansetron Odt 4 Mg Tablet TL 4 mg Q6HR PRN Administration Nausea / Vomiting Ondansetron HCl 4 mg 06/21/25 13:42 06/23/25 13:53 Ondansetron 4 Mg/2 Ml Vial IVP 4 mg Q6HR PRN Administration Nausea / Vomiting Oxycodone HCl 5 mg 06/29/25 13:00 Oxycodone 5 Mg Tablet PO Q6H JANETTE Prochlorperazine Edisylate 10 mg 06/23/25 08:38 06/28/25 06:42 Prochlorperazine 10 Mg/2 Ml Vial IVP 10 mg Q6HR PRN Administration Nausea / Vomiting Sodium Chloride 10 ml 06/21/25 13:40 06/28/25 04:10 Sodium Chloride Flush 0.9% 10 Ml Syringe IVP 10 ml PRN PRN Administration NEEDED PER PROVIDER ORDERS Sodium Chloride 10 ml 06/21/25 17:00 06/29/25 08:36 Sodium Chloride Flush 0.9% 10 Ml Syringe IVP 10 ml 0100,0900,1700 [facility] Administration Objective Vital Signs/Intake & Output Reviewed Vital Signs: Yes Vital Signs: Vital Signs x48h Temp Pulse Pulse Resp BP BP Pulse Ox 06/29/25 08:37 108 H 184/108 H 06/29/25 07:55 36.7 C 108 H 24 184/108 H 94 Intake & Output: Intake & Output 06/26/25 06/27/25 06/28/25 06/29/25 23:59 23:59 23:59 23:59 Intake Total 2296 / 2296 1500 / 1500 2300 / 2300 100 / 100 Output Total 2910 / 2910 2825 / 2825 1200 / 1200 1000 / 1000 Balance -614 / -614 -1325 / -1325 1100 / 1100 -900 / -900 Objective General Appearance: positive Alert, Moderate distress (Mumbling, in distress tone of voice, picking at gown, IV bandage, left hip bandage, bed sheets. Recognizes her daughter and will stop vocalizing distress to listen to what her daughter says.) and Other (5 feet 7 inches, 87 kg) Eyes Bilateral: positive PERRL ENT: positive Dry mucous membranes Neck: positive No JVD; negative Stiff neck Respiratory: positive No respiratory distress and Breath sounds nml; negative Wheezes, Rales or Rhonchi Cardiovascular: positive Regular rate & rhythm (hx of afib but RRR on exam.) and Systolic murmur (Loudest at right upper sternal border 3 out of 6) Abdomen: positive Non-tender, No organomegaly and Nml bowel sounds Skin: positive Warm, Dry and Pallor Extremities: positive Other (Both feet internally rotated. Large legs with cankles. But no edema. Onychomycosis of the great toenails. No venous stasis dermatitis. L thigh bandange clean, skin is warm, no redness or edema. ) Neurologic/Psychiatric: positive CN's nml (2-12) (Able to swallow at daughter's command), Motor nml, Disoriented to person, Disoriented to place, Disoriented to time and Slurred/abnml speech Lab Results 06/29/25 05:44 06/29/25 05:44 Other Labs: Lab Results x24hrs 06/29/25 Range/Units 05:44 WBC 8.5 (4.8-10.8) x10^3/uL RBC 2.71 L (4.20-5.40) 10^6/uL Hgb 8.8 L (12.0-16.0) g/dL Hct 27.6 L (37.0-47.0) % MCV 101.8 H (81.0-99.0) fL MCH 32.5 H (27.0-31.0) pg MCHC 31.9 L (32.0-36.0) g/dL RDW 17.1 H (12.0-15.0) % Plt Count 180 (130-450) 10^3/uL MPV 9.9 (7.9-10.8) fL Sodium 137 (135-145) mmol/L Potassium 4.5 (3.5-4.5) mmol/L Chloride 110 (101-111) mmol/L Carbon Dioxide 23 (21-32) mmol/L Anion Gap 4.0 L (6-13) BUN 30 H (6-20) mg/dL Creatinine 1.3 (0.6-1.3) mg/dL Estimated GFR (MDRD) 39 L (>89) Glucose 106 H (74-104) mg/dL Calcium 7.9 L (8.5-10.3) mg/dL Magnesium 1.9 (1.7-2.3) mg/dL Sepsis Event Note (H) Evaluation Current Stage of Sepsis: Septic shock Possible source of Sepsis: positive Unknown Sepsis Criteria Sepsis Criteria: WBC count greater than 12,000 or less than 4000, MAP less than 65 mmHg and Metabolic: lactate > 2 mmol/L Assessment/Plan Problem List (1) Acute metabolic encephalopathy: Impression: Before surgery, she was at baseline, although patient does have Alzheimer's dementia, she is able to converse in short sentences. Her memory is poor, but she is able to feed herself, and interact meaningfully. ACP conversation held today. Please see under separate dictation. After surgery, over a few days, she has been moaning in pain, and continues to be altered. At times, she is able to say a few short phrases. Pain alternates from abdomen to hip, although patient is a poor historian. Patient has not had a bowel movement in over 7 days. As such, x-ray of the abdomen was done, followed by CT abdomen/pelvis. This did not show any obstruction, ileus, retroperitoneal hematoma. Suppository was placed 06/26 with some manual disimpaction and stool output. CT of the hip was also completed which shows a hematoma, and postsurgical changes that were expected. Spoke with orthopedic surgeon today, 06/28 and today, regarding this CT, and he is in agreement. Fentanyl patch 25 mcg was trialed. At first there was hope that this was working because she seemed to calm down, but overnight went back to her agitated, fretful personality. Plan: Maintain strict delirium precautions. Lights on during the day, off at night, family at bedside, continuous reorientation, scheduled melatonin if able to swallow. Continue Zyprexa at night. Change Tylenol and oxycodone to scheduled not as needed Since we are not going to be able to prescribe fentanyl at discharge, I am removing the fentanyl patch. Discussed with daughter. Advance care planning conversation done, please see under separate dictation. (2) Shock: Impression: Resolved. Likely due to hypovolemic shock, acute blood loss anemia after surgery. Hemoglobin dropped to 5.7 from 11.1 on admission. Received 2 units of blood initially. On 06/25, repeat was 6.8, 1 more unit of blood was given. It is now stable around 9. Weaned off of Levophed and vasopressin. Continue IV fluids. Less likely septic shock. Afebrile, normal white count. Cefepime and Flagyl were discontinued on 06/25, continue to monitor off antibiotics. (3) Dysphagia: Impression: Patient was having a difficult time swallowing, was not following cues. This is likely entirely due her altered mentation and delirium, which is hopefully reversible. Speech therapy is following. However, she was not alert enough to actively participate in the evaluation. - Today was able to follow the cue swallow. Plan: Start with mechanical soft diet, very slowly. Daughter wants to avoid tube feedings after discussion today. Daughter is aware that if she fails this feeding trial, we will have to do something to feed her. Daughter states that if we go to tube feeds and mom continues to be agitated, she is asking for us to use wrist restraints. Qualifiers: Dysphagia type: unspecified Qualified Code(s): R13.10 - Dysphagia, unspecified (4) Acute blood loss anemia: Impression: Admission hemoglobin 11.1. Baseline hemoglobin is 13.3. Her gage was 5.7 on the . She has received 2 units of blood and today she is 8.8. We will continue to monitor and transfuse for hemoglobin less than 7. (5) NAOMI (acute kidney injury): Impression: Baseline creatinine 1.2. With hypotension, her peak creatinine was 3.3 on June 24. Today she is 1.3. - Likely ATN, due to hypoperfusion in setting of hypotension as above. Continue IV fluids. Improving. (6) Femoral neck fracture: Impression: S/p surgical repair 06/22. POD#7. Post op course complicated by acute blood loss anemia as above. Recall that etiology of her fracture was from mechanical ground-level fall. She tripped on her nightgown. She has x-ray confirmed a left subcapital femoral neck fracture. Continue heparin for VTE prophylaxis. Physical therapy evaluation when mentation improves. Qualifiers: Encounter type: initial encounter Fracture type: closed Laterality: l eft Qualified Code(s): S72.002A - Fracture of unspecified part of neck of left femur, initial encounter for closed fracture (7) Dementia: Impression: Complicating her stay. Experiencing delirium currently. Moderate Alzheimer's dementia. Patient does not live in memory care and was there for respite while her daughter travelled to [place]. She usually lives with daughter and still is able to feed herself, dress herself, fold laundry, play games. She is still on memantine. She has some mood disturbance and insomnia necessitating nightly mirtazapine. She has done well with this. Only recently started. Continue mirtazapine nightly. As needed anxiolytics available. Qualifiers: Dementia type: Alzheimer's Alzheimer's disease onset: late onset D ementia severity: moderate Dementia behavioral or psychological symptom: with mood disturbance Qualified Code(s): G30.1 - Alzheimer's disease with late onset; F02.B3 - Dementia in other diseases classified elsewhere, moderate, with mood disturbance (8) Atrial fibrillation: Impression: Notably she is not on any anticoagulation. Her daughter seems to remember that after she had several falls, that she was taken off of anticoagulation because of her increased bleeding risk. This was several years ago. Tachycardic at times. Anticoagulation as above. Not on any rate controlling agents. Qualifiers: Atrial fibrillation type: longstanding persistent Qualified Code(s): I 48.11 - Longstanding persistent atrial fibrillation (9) Hypertension: Impression: Blood pressure medications currently on hold. Continue to hold Coreg, hydralazine, amlodipine. Will reintroduce one at a time when patient able to swallow safely. Her blood pressure has continued to be elevated. Will add IV labetolol for blood pressure >180. Qualifiers: Hypertension type: primary hypertension Qualified Code(s): I10 - Essential (primary) hypertension
[2025-06-29] MEDS: ACETAMINOPHEN 325 MG TABLET PO SCH ×2 (15:18→16:29)
[2025-06-29] MEDS: oxyCODONE 5 MG TABLET PO SCH ×2 (15:19→16:29)
--- NOTE | 2025-06-29 15:37 | XRAY Report ---
PROCEDURE: XR Chest for Line Placement INDICATIONS: ng tube placement TECHNIQUE: One view of the chest was acquired. COMPARISON: 06/26/2025, 06/24/2025 FINDINGS: Surgical changes and devices: The tip of the gastric tube can be seen at the fundus of the stomach. Cholecystectomy clips are seen. Lungs and pleura: No pleural effusions or pneumothorax. No consolidation. Mediastinum: Mediastinal contours appear normal. Heart size is normal. Calcification is seen of the aortic arch. Bones and chest wall: No suspicious bony lesions. Age-appropriate degenerative changes are seen. Overlying soft tissues appear unremarkable. IMPRESSION: The tip of the gastric tube can be seen at the fundus of the stomach. Reviewed by: Marcell Horne MD on 06/29/2025 2:33 PM [facility] Approved by: Marcell Horne MD on 06/29/2025 2:33 PM [facility] Station ID: [id number]
[2025-06-29] MEDS: MORPHINE PCA 50 MG IV PRN (20:50)
[2025-06-30 06:28] LABS: ALT ALANINE AMINOTRANSFERASE 12.0 IU/L (10-60); AST ASPARTATE AMINOTRANSFERASE 18.0 IU/L (10-42); BUN - BLOOD UREA NITROGEN 28.0 mg/dL (6-20); CARBON DIOXIDE - CO2 25.0 mmol/L (21-32); CREATININE 1.3 mg/dL (0.6-1.3); GFR - MDRD 39.0 (>89); PHOSPHORUS 2.0 mg/dL (2.5-5.0)
--- NOTE | 2025-06-30 11:10 | PROVIDER PROGRESS NOTE ---
Subjective Subjective Subjective: This morning, patient is calm, cooperative, conversive. She is able to tell me her name, as well as her daughter's name at bedside. She states that she is not in any pain. She is talking in short sentences, following commands as well. Overnight, tube feeds were started. She was tolerating them relatively well. However, this morning, she pulled her NG tube, and these were stopped. Nursing is going to do a bedside swallow as we do not have speech therapy here today, and determine if she can safely eat. Official speech reevaluation will be completed tomorrow. Plan is to also work with physical therapy today. 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 re-evaluation on 07/01 Dispo: Likely SNF on discharge, pending clinical course DVT: Heparin Code: DNR Current Medications Current Medications Current Medications: Current Medications Generic Name Dose Route Start Last Admin Trade Name Freq PRN Reason Stop Dose Admin Acetaminophen 650 mg 06/29/25 16:00 06/30/25 04:24 Acetaminophen 325 Mg Tablet PO 650 mg Q6H JANETTE Administration Atorvastatin Calcium 5 mg 06/21/25 21:00 06/29/25 20:23 Atorvastatin 10 Mg Tablet PO 5 mg HS JANETTE Administration Calamine 1 applic 06/24/25 14:59 06/24/25 17:30 Calamine/Zinc Oxide 177 Ml Bottle TOP 1 applic Q6HR PRN Administration ITCHING Docusate Sodium 100 mg 06/21/25 14:17 Docusate Sodium 100 Mg Capsule PO DAILY PRN Constipation Haloperidol 5 mg 06/28/25 17:14 06/28/25 22:48 Haloperidol 5 Mg/Ml Vial IVP 5 mg QPM PRN Administration Agitation Haloperidol 2 mg 06/30/25 09:00 06/30/25 08:15 Haloperidol 1 Mg Tablet PO 2 mg DAILY JANETTE Administration Heparin Sodium (Porcine) 5,000 unit 06/29/25 09:00 06/30/25 08:15 Heparin 5,000 Unit/Ml Vial SUBQ 5,000 unit BID JANETTE Administration Hydralazine HCl 100 mg 06/21/25 21:00 06/30/25 08:14 Hydralazine 25 Mg Tablet PO 100 mg BID JANETTE Administration Hydromorphone HCl 1 mg 06/28/25 17:13 06/30/25 08:14 Hydromorphone 1 Mg/Ml Carpuject IVP 1 mg Q4HR PRN Administration Breakthrough Pain Hydroxyzine Pamoate 25 mg 06/24/25 14:59 Hydroxyzine Pamoate 25 Mg Capsule PO QPM PRN ITCHING Dextrose/Sodium Chloride 1,000 mls @ 75 mls/hr 06/22/25 21:00 06/30/25 05:32 D5.45ns IV 75 mls/hr .[id number] JANETTE Administration Acetaminophen 1,000 mg in 100 mls @ 400 mls/hr 06/26/25 17:15 06/29/25 14:59 Acetaminophen IV Infused Q6HR PRN Infusion Moderate Pain (Level 4-6) Labetalol HCl 10 mg 06/28/25 13:47 06/29/25 08:37 Labetalol 20 Mg/4 Ml Syringe IVP 10 mg Q6HR PRN Administration Systolic BP >180 Levothyroxine Sodium 88 mcg 06/22/25 07:00 06/30/25 07:08 Levothyroxine 88 Mcg Tablet PO 88 mcg QDAC JANETTE Administration Lidocaine 1 patch 06/22/25 09:00 06/30/25 08:15 Lidocaine Patch 4% TOP 1 patch DAILY JANETTE Administration Melatonin 6 mg 06/26/25 21:00 06/29/25 20:23 Melatonin 3 Mg Tablet PO 6 mg QPM JANETTE Administration Mirtazapine 15 mg 06/21/25 21:00 06/29/25 20:23 Mirtazapine 15 Mg Tablet PO 15 mg HS JANETTE Administration Morphine Sulfate/Sodium Chloride 50 mg 06/29/25 15:52 06/29/25 20:50 Morphine Head School Custodian 50 Mg IV 50 mg LONGITUDINAL FLOAT OPERATOR PRN Administration Severe Pain (Level 7-10) Protocol Nystatin 1 applic 06/21/25 14:17 06/25/25 09:44 Nystatin Powder 15 Gm TOP 1 applic TID PRN Administration rash Ondansetron HCl 4 mg 06/21/25 13:42 06/22/25 03:15 Ondansetron Odt 4 Mg Tablet TL 4 mg Q6HR PRN Administration Nausea / Vomiting Ondansetron HCl 4 mg 06/21/25 13:42 06/23/25 13:53 Ondansetron 4 Mg/2 Ml Vial IVP 4 mg Q6HR PRN Administration Nausea / Vomiting Oxycodone HCl 5 mg 06/29/25 16:00 06/30/25 04:18 Oxycodone 5 Mg Tablet PO Not Given Q6H JANETTE Prochlorperazine Edisylate 10 mg 06/23/25 08:38 06/28/25 06:42 Prochlorperazine 10 Mg/2 Ml Vial IVP 10 mg Q6HR PRN Administration Nausea / Vomiting Quetiapine Fumarate 25 mg 06/29/25 21:00 06/29/25 20:25 Quetiapine 25 Mg Tablet PO Not Given QPM JANETTE Sodium Chloride 10 ml 06/21/25 13:40 06/28/25 04:10 Sodium Chloride Flush 0.9% 10 Ml Syringe IVP 10 ml PRN PRN Administration NEEDED PER PROVIDER ORDERS Sodium Chloride 10 ml 06/21/25 17:00 06/30/25 08:15 Sodium Chloride Flush 0.9% 10 Ml Syringe IVP 10 ml 0100,0900,1700 JANETTE Administration Objective Vital Signs/Intake & Output Reviewed Vital Signs: Yes Vital Signs: Vital Signs x48h Temp Pulse Resp BP Pulse Ox 06/30/25 07:36 98.2 F 90 20 169/98 H 94 06/30/25 07:00 12 06/30/25 06:00 12 06/30/25 05:00 14 06/30/25 04:00 12 Intake & Output: Intake & Output 06/27/25 06/28/25 06/29/25 06/30/25 23:59 23:59 23:59 23:59 Intake Total 1500 / 1500 2300 / 2300 2127 / 2127 947 / 947 Output Total 2825 / 2825 1200 / 1200 1350 / 1350 425 / 425 Balance -1325 / -1325 1100 / 1100 777 / 777 522 / 522 Objective General Appearance: positive No acute distress, Alert and Lethargic Eyes Bilateral: positive Normal inspection and PERRL ENT: positive ENT inspection nml, Pharynx nml and No signs of dehydration Neck: positive Nml inspection, Thyroid nml and No JVD Respiratory: positive Chest non-tender, No respiratory distress, Breath sounds nml and Rales (Mild bibasilar rales); negative Wheezes or Rhonchi Cardiovascular: positive No murmur, No gallop, Irregularly irregular and Tachycardia; negative Systolic murmur Abdomen: positive No organomegaly and No distention; negative Non-tender (Mildly tender epigastric region), Guarding or Splenomegaly Back: positive Nml inspection; negative CVA tenderness (R) or CVA tenderness (L) Skin: positive Color nml, No rash, Warm and Dry Extremities: positive No pedal edema and Other (Surgical bandage in place of L hip with no saturation noted); negative Non-tender (Tender in left lower hip ) Neurologic/Psychiatric: positive Disoriented to person, Disoriented to place, Disoriented to time and Weakness Comments/Other: Extremities: Expected postoperative changes in left lower extremity. No purulence or drainage around her surgical wounds. Lab Results 06/29/25 05:44 06/30/25 05:54 Other Labs: Lab Results x24hrs 06/30/25 Range/Units 05:54 Sodium 136 (135-145) mmol/L Potassium 4.4 (3.5-4.5) mmol/L Chloride 108 (101-111) mmol/L Carbon Dioxide 25 (21-32) mmol/L Anion Gap 3.0 L (6-13) BUN 28 H (6-20) mg/dL Creatinine 1.3 (0.6-1.3) mg/dL Estimated GFR (MDRD) 39 L (>89) Glucose 127 H (74-104) mg/dL Calcium 7.9 L (8.5-10.3) mg/dL Phosphorus 2.0 L (2.5-5.0) mg/dL Magnesium 1.8 (1.7-2.3) mg/dL Total Bilirubin 0.7 (0.2-1.0) mg/dL AST 18 (10-42) IU/L ALT 12 (10-60) IU/L Alkaline Phosphatase 68 (42-121) IU/L Total Protein 4.9 L (6.4-8.9) g/dL Albumin 2.6 L (3.2-5.5) g/dL Globulin 2.3 (2.1-4.2) g/dL Albumin/Globulin Ratio 1.1 (1.0-2.2) Prealbumin 11 L (17-34) mg/dL Sepsis Event Note (H) Evaluation Current Stage of Sepsis: Septic shock Possible source of Sepsis: positive Unknown Sepsis Criteria Sepsis Criteria: WBC count greater than 12,000 or less than 4000, MAP less than 65 mmHg and Metabolic: lactate > 2 mmol/L Assessment/Plan Problem List (1) Acute metabolic encephalopathy: Impression: Resolving. At baseline, although patient does have Alzheimer's dementia, she is able to converse in short sentences. Her memory is poor, but she is able to feed herself, and interact meaningfully. Over the past week, patient has been moaning and groaning in pain, unable to participate meaningfully in interactions, and not following commands. This morning, she is able to tell me her name, is following simple commands, and is pleasant and conversive with short phrases. Pain alternates from abdomen to hip, although patient is a poor historian. Patient has not had a bowel movement in over 7 days. As such, x-ray of the abdomen was done, followed by CT abdomen/pelvis. This did not show any obstruction, ileus, retroperitoneal hematoma. Suppository was placed 06/26 with some manual disimpaction and stool output. CT of the hip was also completed which shows a hematoma, and postsurgical changes that were expected. Patient is maintained on morphine set at a basal rate of 0.5mg/hr/day. She is also receiving scheduled oxycodone 5mg every 6 hours, as well as scheduled Tylenol. Will wean down over the next few days. Maintain strict delirium precautions. Lights on during the day, off at night, family at bedside, continuous reorientation, scheduled melatonin if able to swallow. Continue seroquel at night. (2) Dysphagia: Impression: Patient passed nursing bedside swallow today. Will stick with pureed diet, thickened liquids. Speech therapy is following. However, she was not alert enough to actively participate in the evaluation previously. Will reconsult tomorrow. Continue D5/sodium chloride until nutritional intake increases. Qualifiers: Dysphagia type: unspecified Qualified Code(s): R13.10 - Dysphagia, unspecified (3) Shock: Impression: Resolved. Likely due to hypovolemic shock, acute blood loss anemia after surgery. Hemoglobin dropped to 5.7 from 11.1 on admission. Received 2 units of blood initially. On 06/25, repeat was 6.8, 1 more unit of blood was given. It is now stable around 9. Weaned off of Levophed and vasopressin. Continue IV fluids. Less likely septic shock. Afebrile, normal white count. Cefepime and Flagyl were discontinued on 06/25, continue to monitor off antibiotics. (4) Acute blood loss anemia: Impression: Resolved. See above. (5) NAOMI (acute kidney injury): Impression: Resolved. Likely ATN, due to hypoperfusion in setting of hypotension as above. Continue IV fluids. Improving. (6) Femoral neck fracture: Impression: S/p surgical repair 06/22. Complicated by acute blood loss anemia as above. Recall that etiology of her fracture was from mechanical ground-level fall. She tripped on her nightgown. She has x-ray confirmed a left subcapital femoral neck fracture. Continue heparin for VTE prophylaxis. Physical therapy evaluation for today. Qualifiers: Encounter type: initial encounter Fracture type: closed Laterality: l eft Qualified Code(s): S72.002A - Fracture of unspecified part of neck of left femur, initial encounter for closed fracture (7) Dementia: Impression: Complicating her stay. Experiencing delirium currently. Moderate Alzheimer's dementia. Patient lives in memory care. She still is able to feed herself. She is still on memantine. She has some mood disturbance and insomnia necessitating nightly mirtazapine. She has done well with this. Only recently started. Qualifiers: Alzheimer's disease onset: late onset Dementia behavioral or psychological symptom: with mood disturbance Dementia severity: moderate D ementia type: Alzheimer's Qualified Code(s): G30.1 - Alzheimer's disease with late onset; F02.B3 - Dementia in other diseases classified elsewhere, moderate, with mood disturbance (8) Atrial fibrillation: Impression: Notably she is not on any anticoagulation. Her daughter seems to remember that after she had several falls, that she was taken off of anticoagulation because of her increased bleeding risk. This was several years ago. Tachycardic at times. Anticoagulation as above. Not on any rate controlling agents. Qualifiers: Atrial fibrillation type: longstanding persistent Qualified Code(s): I 48.11 - Longstanding persistent atrial fibrillation (9) Hypertension: Impression: Blood pressure medications were on hold as unable to swallow. Continue Coreg and hydralazine today. Amlodipine tomorrow. Qualifiers: Hypertension type: primary hypertension Qualified Code(s): I10 - Essential (primary) hypertension
--- NOTE | 2025-06-30 15:44 | PT Plan of Care ---
PT Inpatient Plan of Care DIAGNOSIS Diagnosis: L femoral fx; hypovolemic shock Diagnosis: acute encephalopathy Referring Provider: Navdeep Grimm Patient Status: Inpatient CHIEF COMPLAINT Chief Complaint: L hip pain Onset of Chief Complaint: DISTRIBUTION ASSOCIATE on 06/21/25 BALANCE/FUNCTIONAL RESULTS Sitting Balance: Fair Standing Balance: Unable ASSESSMENT Assessment: The pt is an 89 y/o F who arrived to the ED on 06/21/25 due to L hip pain after a GLF while she was staying at a facility to provide respite care as her daughter was on vacation. She was hospitalized with a L femoral neck fracture and is s/p L hip hemiarthroplasty performed on 06/22/[address] Martines. While recovering from this she went into hypovolemic shock and was in the ICU on pressors until recently when she was cleared to begin participating in skilled PT, she is WBAT to L LE. Please see chart for complete medical hx. The pt was received sleeping comfortably supine in bed while her daughter and son-in-law were in the room. She presented today with significant B UE and LE strength deficits, decreased activity tolerance, impaired standing balance, and abdominal and L hip pain which greatly limited her tolerance with all functional mobility. She was unable to stand for more than 20-30 seconds and unable to take any steps or perform a stand pivot transfer once standing. Her overall tolerance throughout this assessment was limited by weakness, fatigue, and pain. SURGEON ASSISTANT was present and assisting throughout due to the pt's functional limitations. At this time recommend continued skilled PT intervention while in the acute setting and DC to SNF for further rehab once pt medically stable. This plan was discussed with the pt and her family, they were in agreement with this. At the end of the session the pt was supine in bed with call light in reach and SURGEON ASSISTANT assisting with ADL's. RN and MD updated on pt's status and DC rec. PATIENT/FAMILY GOALS Patient/Family Goals: TO be able to get OOB GOALS Improve supine to sit to:: Moderate Assist Improve sit to stand to:: Moderate Assist Improve pivot transfer ability to:: Moderate Assist Improve sit to supine to:: Moderate Assist Improve gait ability to:: Max A Advance Assistive Device to:: Front Wheeled Walker Increase distance walked to (in feet):: 5 Improve Sitting Balance to:: Good PLAN Frequency: 1-2x/day Duration: Until discharge DISCHARGE RECOMMENDATIONS Discharge Location: [facility] Facility Support/Services Needed: With assist Other Discharge Equipment: pt owns all recommended DME Transport Needs at Discharge: [facility]
[2025-06-30] MEDS: oxyCODONE 5 MG TABLET PO PRN (18:32)
[2025-07-01 05:52] LABS: HCT - HEMATOCRIT 26.4 % (37.0-47.0); HGB - HEMOGLOBIN 8.5 g/dL (12.0-16.0); MEAN PLATELET VOLUME 9.6 fL (7.9-10.8); PLT - PLATELET COUNT 202.0 10^3/uL (130-450); RED CELL DISTRIBUTION WIDTH 18.0 % (12.0-15.0)
[2025-07-01 06:18] LABS: BUN - BLOOD UREA NITROGEN 24.0 mg/dL (6-20); CARBON DIOXIDE - CO2 23.0 mmol/L (21-32); CREATININE 1.1 mg/dL (0.6-1.3); GFR - MDRD 47.0 (>89)
--- NOTE | 2025-07-01 10:58 | PROVIDER PROGRESS NOTE ---
Subjective Subjective Subjective: Patient is a 89-year-old female with a history of Alzheimer's dementia who presented after a ground-level fall. She had a left hip hemiarthroplasty completed on 06/22. Her postoperative course was complicated initially by hypovolemic shock, for which she received IV fluids and packed red blood cells. This has resolved. However, for the past 5 days, she has had altered mentation. This is now resolving. She also has dysphagia, and is unable to swallow safely at this time, which is a marked departure from her normal. This morning, patient is calm, cooperative, conversive. She is able to tell me her name, as well as her daughter's name at bedside. She states that she is not in any pain. She is talking in short sentences, following commands as well. Speech therapy did evaluate her again today with her improvement in mentation. However, she is unable to safely swallow. Daughter was spoken with, plan is to place NG tube back and start tube feeds once again. In order for this to be successful, patient will need to be placed in physical restraints, including gloves and wrist restraints. We will continue to evaluate on least restrictive methods. 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 for ECG TECHNICIAN re-evaluation when more appropriate Dispo: Likely SNF on discharge, pending clinical course DVT: Heparin Code: DNR Current Medications Current Medications Current Medications: Current Medications Generic Name Dose Route Start Last Admin Trade Name Freq PRN Reason Stop Dose Admin Acetaminophen 650 mg 06/29/25 16:00 07/01/25 09:09 Acetaminophen 325 Mg Tablet PO 650 mg Q6H JANETTE Administration Amlodipine Besylate 5 mg 07/01/25 09:00 07/01/25 09:09 Amlodipine 5 Mg Tablet PO 5 mg DAILY JANETTE Administration Atorvastatin Calcium 5 mg 06/21/25 21:00 06/30/25 20:05 Atorvastatin 10 Mg Tablet PO 5 mg HS JANETTE Administration Calamine 1 applic 06/24/25 14:59 06/24/25 17:30 Calamine/Zinc Oxide 177 Ml Bottle TOP 1 applic Q6HR PRN Administration ITCHING Carvedilol 3.125 mg 06/30/25 21:00 07/01/25 09:09 Carvedilol 3.125 Mg Tablet PO 3.125 mg BID JANETTE Administration Docusate Sodium 100 mg 06/21/25 14:17 Docusate Sodium 100 Mg Capsule PO DAILY PRN Constipation Haloperidol 5 mg 06/28/25 17:14 06/30/25 19:07 Haloperidol 5 Mg/Ml Vial IVP 5 mg QPM PRN Administration Agitation Heparin Sodium (Porcine) 5,000 unit 06/29/25 09:00 07/01/25 09:08 Heparin 5,000 Unit/Ml Vial SUBQ 5,000 unit BID JANETTE Administration Hydralazine HCl 100 mg 06/21/25 21:00 07/01/25 09:09 Hydralazine 25 Mg Tablet PO 100 mg BID JANETTE Administration Hydroxyzine Pamoate 25 mg 06/24/25 14:59 Hydroxyzine Pamoate 25 Mg Capsule PO QPM PRN ITCHING Dextrose/Sodium Chloride 1,000 mls @ 75 mls/hr 06/22/25 21:00 07/01/25 09:11 D5.45ns IV 75 mls/hr .[id number] JANETTE Administration Acetaminophen 1,000 mg in 100 mls @ 400 mls/hr 06/26/25 17:15 06/29/25 14:59 Acetaminophen IV Infused Q6HR PRN Infusion Moderate Pain (Level 4-6) Levothyroxine Sodium 88 mcg 06/22/25 07:00 07/01/25 06:18 Levothyroxine 88 Mcg Tablet PO 88 mcg QDAC JANETTE Administration Lidocaine 1 patch 06/22/25 09:00 07/01/25 09:10 Lidocaine Patch 4% TOP 1 patch DAILY JANETTE Administration Melatonin 6 mg 06/26/25 21:00 06/30/25 20:05 Melatonin 3 Mg Tablet PO 6 mg QPM JANETTE Administration Morphine Sulfate/Sodium Chloride 50 mg 06/29/25 15:52 06/29/25 20:50 Morphine Drilling Inspector 50 Mg IV 50 mg JUMPBASTING COLLAR BASTER PRN Administration Severe Pain (Level 7-10) Protocol Nystatin 1 applic 06/21/25 14:17 06/25/25 09:44 Nystatin Powder 15 Gm TOP 1 applic TID PRN Administration rash Ondansetron HCl 4 mg 06/21/25 13:42 06/22/25 03:15 Ondansetron Odt 4 Mg Tablet TL 4 mg Q6HR PRN Administration Nausea / Vomiting Ondansetron HCl 4 mg 06/21/25 13:42 06/23/25 13:53 Ondansetron 4 Mg/2 Ml Vial IVP 4 mg Q6HR PRN Administration Nausea / Vomiting Oxycodone HCl 5 mg 06/30/25 15:37 06/30/25 18:32 Oxycodone 5 Mg Tablet PO 5 mg Q6H PRN Administration Moderate Pain Prochlorperazine Edisylate 10 mg 06/23/25 08:38 06/28/25 06:42 Prochlorperazine 10 Mg/2 Ml Vial IVP 10 mg Q6HR PRN Administration Nausea / Vomiting Quetiapine Fumarate 25 mg 06/29/25 21:00 06/30/25 20:07 Quetiapine 25 Mg Tablet PO 25 mg QPM JANETTE Administration Sodium Chloride 10 ml 06/21/25 13:40 06/28/25 04:10 Sodium Chloride Flush 0.9% 10 Ml Syringe IVP 10 ml PRN PRN Administration NEEDED PER PROVIDER ORDERS Sodium Chloride 10 ml 06/21/25 17:00 07/01/25 09:10 Sodium Chloride Flush 0.9% 10 Ml Syringe IVP 10 ml 0100,0900,1700 JANETTE Administration Objective Vital Signs/Intake & Output Reviewed Vital Signs: Yes Vital Signs: Vital Signs x48h Temp Pulse Resp BP Pulse Ox 07/01/25 10:00 15 07/01/25 09:45 97.7 F 122 H 28 H 179/93 H 95 07/01/25 09:00 16 07/01/25 08:00 17 07/01/25 07:00 16 07/01/25 05:56 18 07/01/25 05:37 97.9 F 92 16 140/78 H 95 07/01/25 05:00 16 07/01/25 04:00 18 07/01/25 03:00 16 Intake & Output: Intake & Output 06/28/25 06/29/25 06/30/25 07/01/25 23:59 23:59 23:59 23:59 Intake Total 2300 / 2300 2127 / 2127 1907 / 1907 1030 / 1030 Output Total 1200 / 1200 1350 / 1350 750 / 750 265 / 265 Balance 1100 / 1100 777 / 777 1157 / 1157 765 / 765 Weight (kg) 99 kg Objective General Appearance: positive No acute distress, Alert and Lethargic Eyes Bilateral: positive Normal inspection and PERRL ENT: positive ENT inspection nml, Pharynx nml and No signs of dehydration Neck: positive Nml inspection, Thyroid nml and No JVD Respiratory: positive Chest non-tender, No respiratory distress, Breath sounds nml and Rales (Mild bibasilar rales); negative Wheezes or Rhonchi Cardiovascular: positive No murmur, No gallop, Irregularly irregular and Tachycardia; negative Systolic murmur Abdomen: positive No organomegaly and No distention; negative Non-tender (Mildly tender epigastric region), Guarding or Splenomegaly Back: positive Nml inspection; negative CVA tenderness (R) or CVA tenderness (L) Skin: positive Color nml, No rash, Warm and Dry Extremities: positive No pedal edema and Other (Surgical bandage in place of L hip with no saturation noted); negative Non-tender (Tender in left lower hip ) Neurologic/Psychiatric: positive Disoriented to person, Disoriented to place, Disoriented to time and Weakness Comments/Other: Extremities: Expected postoperative changes in left lower extremity. No purulence or drainage around her surgical wounds. Lab Results 07/01/25 05:31 07/01/25 05:31 Other Labs: Lab Results x24hrs 07/01/25 Range/Units 05:31 WBC 9.1 (4.8-10.8) x10^3/uL RBC 2.61 L (4.20-5.40) 10^6/uL Hgb 8.5 L (12.0-16.0) g/dL Hct 26.4 L (37.0-47.0) % MCV 101.1 H (81.0-99.0) fL MCH 32.6 H (27.0-31.0) pg MCHC 32.2 (32.0-36.0) g/dL RDW 18.0 H (12.0-15.0) % Plt Count 202 (130-450) 10^3/uL MPV 9.6 (7.9-10.8) fL Sodium 136 (135-145) mmol/L Potassium 4.3 (3.5-4.5) mmol/L Chloride 109 (101-111) mmol/L Carbon Dioxide 23 (21-32) mmol/L Anion Gap 4.0 L (6-13) BUN 24 H (6-20) mg/dL Creatinine 1.1 (0.6-1.3) mg/dL Estimated GFR (MDRD) 47 L (>89) Glucose 112 H (74-104) mg/dL Calcium 7.4 L (8.5-10.3) mg/dL Magnesium 1.7 (1.7-2.3) mg/dL Sepsis Event Note (H) Evaluation Current Stage of Sepsis: Septic shock Possible source of Sepsis: positive Unknown Sepsis Criteria Sepsis Criteria: WBC count greater than 12,000 or less than 4000, MAP less than 65 mmHg and Metabolic: lactate > 2 mmol/L Assessment/Plan Problem List (1) Acute metabolic encephalopathy: Impression: Resolving. At baseline, although patient does have Alzheimer's dementia, she is able to converse in short sentences. Her memory is poor, but she is able to feed herself, and interact meaningfully. Over the past week, patient has been moaning and groaning in pain, unable to participate meaningfully in interactions, and not following commands. This morning, she is able to tell me her name, is following simple commands, and is pleasant and conversive with short phrases. Pain alternates from abdomen to hip, although patient is a poor historian. Initially, x-ray of the abdomen was done, followed by CT abdomen/pelvis. This did not show any obstruction, ileus, retroperitoneal hematoma. Suppository was placed 06/26 with some manual disimpaction and stool output. CT of the hip was also completed which shows a hematoma, and postsurgical changes that were expected. Patient is maintained on morphine set at a basal rate of 0.5mg/hr. She is also receiving as needed oxycodone 5mg every 6 hours, as well as scheduled Tylenol. This can likely be switched to oral morphine equivalents tomorrow. Maintain strict delirium precautions. Lights on during the day, off at night, family at bedside, continuous reorientation, scheduled melatonin if able to swallow. Continue seroquel at night. (2) Dysphagia: Impression: Speech therapy did evaluate her again today with her improvement in mentation. However, she is unable to safely swallow. Daughter was spoken with, plan is to place NG tube back and start tube feeds once again. In order for this to be successful, patient will need to be placed in physical restraints, including gloves and wrist restraints. We will continue to evaluate on least restrictive methods. Continue D5/sodium chloride until tube feeds are at goal. Qualifiers: Dysphagia type: unspecified Qualified Code(s): R13.10 - Dysphagia, unspecified (3) Shock: Impression: Resolved. Likely due to hypovolemic shock, acute blood loss anemia after surgery. Hemoglobin dropped to 5.7 from 11.1 on admission. Received 2 units of blood initially. On 06/25, repeat was 6.8, 1 more unit of blood was given. It is now stable around 9. Weaned off of Levophed and vasopressin. Continue IV fluids. Less likely septic shock. Afebrile, normal white count. Cefepime and Flagyl were discontinued on 06/25, continue to monitor off antibiotics. (4) Acute blood loss anemia: Impression: Resolved. See above. (5) NAOMI (acute kidney injury): Impression: Resolved. Likely ATN, due to hypoperfusion in setting of hypotension as above. Continue IV fluids. Improving. (6) Femoral neck fracture: Impression: S/p surgical repair 06/22. Complicated by acute blood loss anemia as above. Recall that etiology of her fracture was from mechanical ground-level fall. She tripped on her nightgown. She has x-ray confirmed a left subcapital femoral neck fracture. Continue heparin for VTE prophylaxis. Physical therapy evaluation completed 06/30, plan for SNF placement. Qualifiers: Encounter type: initial encounter Fracture type: closed Laterality: l eft Qualified Code(s): S72.002A - Fracture of unspecified part of neck of left femur, initial encounter for closed fracture (7) Dementia: Impression: Complicating her stay as above. Experiencing delirium currently. Moderate Alzheimer's dementia. Patient lives in memory care. She still is able to feed herself. Qualifiers: Alzheimer's disease onset: late onset Dementia behavioral or psychological symptom: with mood disturbance Dementia severity: moderate D ementia type: Alzheimer's Qualified Code(s): G30.1 - Alzheimer's disease with late onset; F02.B3 - Dementia in other diseases classified elsewhere, moderate, with mood disturbance (8) Atrial fibrillation: Impression: Notably she is not on any anticoagulation. Her daughter seems to remember that after she had several falls, that she was taken off of anticoagulation because of her increased bleeding risk. This was several years ago. Tachycardic at times. Anticoagulation as above. Qualifiers: Atrial fibrillation type: longstanding persistent Qualified Code(s): I 48.11 - Longstanding persistent atrial fibrillation (9) Hypertension: Impression: Continue Coreg, hydralazine, amlodipine. Qualifiers: Hypertension type: primary hypertension Qualified Code(s): I10 - Essential (primary) hypertension
--- NOTE | 2025-07-01 12:00 | XRAY Report ---
PROCEDURE: XR Chest for Line Placement INDICATIONS: NGT placement TECHNIQUE: One view of the chest was acquired. COMPARISON: Chest x-ray 06/29/2025 FINDINGS: Surgical changes and devices: Nasogastric tube is present projecting below the left hemidiaphragm. Lungs and pleura: Interval mild right effusion. Mediastinum: Mediastinal contours appear normal. Heart size is enlarged. Bones and chest wall: No suspicious bony lesions. Overlying soft tissues appear unremarkable. IMPRESSION: Interval mild right effusion. Developing areas of underlying pneumonia/atelectasis cannot be excluded. Nasogastric tube as above. Reviewed by: Laury Jade MD on 07/01/2025 11:57 AM PDT Approved by: Laury Jade MD on 07/01/2025 11:57 AM PDT Station ID: [id number]
--- NOTE | 2025-07-01 12:33 | Speech Therapy Plan of Care ---
DIAGNOSIS Date of Service Date of Service: 07/01/25 Diagnosis: GLF/HIP PX SPEECH ASSESSMENT Assessment: Mrs. Heath is an 89-y/o F with h/o Alzheimers dementia, admitted after GLF. Underwent L hip hemiarthroplasty on 06/22. Post-op course c/b hypovolemic shock requiring IVF and PRBCs, now resolved. Course further c/b AMS and pain/distress, both improved. Currently able to maintain alertness, answer yes/no, and follow simple commands. At baseline, per daughter (Fide Hernandez), pt tolerated soft diet with thin liquids and had good PO intake. Multiple prior HEMATOLOGIST attempts for swallow eval were deferred due to AMS/pain/distress; today eval completed. Positioning/Participation: Pt upright. Grimaced initially but verbally consented to proceed. Alert at onset, fatigued with decreased alertness (eyes closed) by end of exam. PO trials: ice chip 1, moderately thickened apple juice 3 (IDDSI 3), cream of wheat (IDDSI 4) 1, meds crushed in applesauce 3. Oral phase characterized by confusion/disorganization, requiring verbal/visual cues for labial seal and A/P bolus propulsion. Swallow initiation moderately delayed with all bolus trials. Piecemeal bolus scattered throughout oral cavity after the swallow following presentation of cream of wheat. Pt demonstrated wet/gurgly vocal quality following administration of meds in puree. Pt cued to cough, once she began coughing, emesis of applesauce and apple juice occurred. Overt s/s penetration/aspiration noted with meds in applesauce. Silent aspiration secondary to delayed swallow initiation suspected. Impression: Moderatesevere oropharyngeal dysphagia, exacerbated by dementia. Overt s/s of penetration at bedside, silent aspiration suspected. Recommendations: NPO. Reinstate NGTF. HEMATOLOGIST to f/u for re-eval at bedside as appropriate; consider MBSS once mentation closer to baseline to determine safest, least restrictive diet and/or compensatory strategies. SPEECH PLAN OF CARE Treatment Frequency: Will follow as needed Treatment Duration: Will follow as needed
--- NOTE | 2025-07-01 12:34 | Speech Therapy Plan of Care ---
DIAGNOSIS Date of Service Date of Service: 07/01/25 Diagnosis: GLF/HIP PX SPEECH ASSESSMENT Assessment: Mrs. Heath is an 89-y/o F with h/o Alzheimers dementia, admitted after GLF. Underwent L hip hemiarthroplasty on 06/22. Post-op course c/b hypovolemic shock requiring IVF and PRBCs, now resolved. Course further c/b AMS and pain/distress, both improved. Currently able to maintain alertness, answer yes/no, and follow simple commands. At baseline, per daughter (Fide Hernandez), pt tolerated soft diet with thin liquids and had good PO intake. Multiple prior CORRECTIONAL SECURITY OFFICER attempts for swallow eval were deferred due to AMS/pain/distress; today eval completed. Positioning/Participation: Pt upright. Grimaced initially but verbally consented to proceed. Alert at onset, fatigued with decreased alertness (eyes closed) by end of exam. PO trials: ice chip 1, moderately thickened apple juice 3 (IDDSI 3), cream of wheat (IDDSI 4) 1, meds crushed in applesauce 3. Oral phase characterized by confusion/disorganization, requiring verbal/visual cues for labial seal and A/P bolus propulsion. Swallow initiation moderately delayed with all bolus trials. Piecemeal bolus scattered throughout oral cavity after the swallow following presentation of cream of wheat. Pt demonstrated wet/gurgly vocal quality following administration of meds in puree. Pt cued to cough, once she began coughing, emesis of applesauce and apple juice occurred. Overt s/s penetration/aspiration noted with meds in applesauce. Silent aspiration secondary to delayed swallow initiation suspected. Impression: Moderatesevere oropharyngeal dysphagia, exacerbated by dementia. Overt s/s of penetration at bedside, silent aspiration suspected. Recommendations: NPO. Reinstate NGTF. CORRECTIONAL SECURITY OFFICER to f/u for re-eval at bedside as appropriate; consider MBSS once mentation closer to baseline to determine safest, least restrictive diet and/or compensatory strategies. SPEECH PLAN OF CARE Treatment Frequency: Will follow as needed Treatment Duration: Will follow as needed
[2025-07-02 05:37] LABS: HCT - HEMATOCRIT 28.6 % (37.0-47.0); HGB - HEMOGLOBIN 9.0 g/dL (12.0-16.0); MEAN PLATELET VOLUME 10.1 fL (7.9-10.8); PLT - PLATELET COUNT 259.0 10^3/uL (130-450); RED CELL DISTRIBUTION WIDTH 18.6 % (12.0-15.0)
[2025-07-02 05:56] LABS: ALT ALANINE AMINOTRANSFERASE 13.0 IU/L (10-60); AST ASPARTATE AMINOTRANSFERASE 21.0 IU/L (10-42); BUN - BLOOD UREA NITROGEN 23.0 mg/dL (6-20); CARBON DIOXIDE - CO2 22.0 mmol/L (21-32); CREATININE 1.0 mg/dL (0.6-1.3); GFR - MDRD 52.0 (>89); PHOSPHORUS 2.3 mg/dL (2.5-5.0)
--- NOTE | 2025-07-02 13:05 | PROVIDER PROGRESS NOTE ---
Subjective Prog Note Date Prog Note Date: 07/02/25 Prog Note Time: 12:59 Subjective Subjective: Recall this is an 89-year-old female with past medical history of Alzheimer's dementia presenting after a ground-level fall with a right hemiarthroplasty completed 06/22. She has a course that has been complicated by postoperative hypovolemic shock responsive to IV fluids and PRBC, but requiring pressors briefly. Following her acute illness, she has had dysphagia and obtundation which prompted placement of NG tube. She is currently on tube feeds. Patient is much more alert this morning. She is aware of her surroundings. She is A&O to self and somewhat situation. She knows she is in the hospital. She is oriented to her daughter who is at bedside. Patient is in 2-point restraints, but not reaching for the NG tube. She does not have any significant discomfort from it. She does state that she has some pain in her hip. Denies fevers or chills. Denies abdominal pain, nausea, vomiting. Current Medications Current Medications Current Medications: Current Medications Generic Name Dose Route Start Last Admin Trade Name Freq PRN Reason Stop Dose Admin Acetaminophen 650 mg 06/29/25 16:00 07/02/25 09:30 Acetaminophen 325 Mg Tablet PO 650 mg Q6H JANETTE Administration Amlodipine Besylate 5 mg 07/01/25 09:00 07/02/25 08:15 Amlodipine 5 Mg Tablet PO 5 mg DAILY JANETTE Administration Atorvastatin Calcium 5 mg 06/21/25 21:00 07/01/25 22:42 Atorvastatin 10 Mg Tablet PO 5 mg HS JANETTE Administration Calamine 1 applic 06/24/25 14:59 06/24/25 17:30 Calamine/Zinc Oxide 177 Ml Bottle TOP 1 applic Q6HR PRN Administration ITCHING Carvedilol 3.125 mg 06/30/25 21:00 07/02/25 08:15 Carvedilol 3.125 Mg Tablet PO 3.125 mg BID JANETTE Administration Docusate Sodium 100 mg 06/21/25 14:17 Docusate Sodium 100 Mg Capsule PO DAILY PRN Constipation Haloperidol 5 mg 06/28/25 17:14 06/30/25 19:07 Haloperidol 5 Mg/Ml Vial IVP 5 mg QPM PRN Administration Agitation Heparin Sodium (Porcine) 5,000 unit 06/29/25 09:00 07/02/25 08:20 Heparin 5,000 Unit/Ml Vial SUBQ 5,000 unit BID JANETTE Administration Hydralazine HCl 100 mg 06/21/25 21:00 07/02/25 08:15 Hydralazine 25 Mg Tablet PO 100 mg BID JANETTE Administration Hydroxyzine Pamoate 25 mg 06/24/25 14:59 07/02/25 04:52 Hydroxyzine Pamoate 25 Mg Capsule PO 25 mg QPM PRN Administration ITCHING Dextrose/Sodium Chloride 1,000 mls @ 75 mls/hr 06/22/25 21:00 07/02/25 01:10 D5.45ns IV 75 mls/hr .[id number] JANETTE Administration Acetaminophen 1,000 mg in 100 mls @ 400 mls/hr 06/26/25 17:15 06/29/25 14:59 Acetaminophen IV Infused Q6HR PRN Infusion Moderate Pain (Level 4-6) Levothyroxine Sodium 88 mcg 06/22/25 07:00 07/02/25 06:34 Levothyroxine 88 Mcg Tablet PO 88 mcg QDAC JANETTE Administration Lidocaine 1 patch 06/22/25 09:00 07/02/25 08:15 Lidocaine Patch 4% TOP 1 patch DAILY JANETTE Administration Melatonin 6 mg 06/26/25 21:00 07/01/25 22:34 Melatonin 3 Mg Tablet PO 6 mg QPM JANETTE Administration Morphine Sulfate/Sodium Chloride 50 mg 06/29/25 15:52 06/29/25 20:50 Morphine Nail Assembly Machine Operator 50 Mg IV 50 mg LOAN FUNDER PRN Administration Severe Pain (Level 7-10) Protocol Nystatin 1 applic 06/21/25 14:17 06/25/25 09:44 Nystatin Powder 15 Gm TOP 1 applic TID PRN Administration rash Ondansetron HCl 4 mg 06/21/25 13:42 06/22/25 03:15 Ondansetron Odt 4 Mg Tablet TL 4 mg Q6HR PRN Administration Nausea / Vomiting Ondansetron HCl 4 mg 06/21/25 13:42 06/23/25 13:53 Ondansetron 4 Mg/2 Ml Vial IVP 4 mg Q6HR PRN Administration Nausea / Vomiting Oxycodone HCl 5 mg 06/30/25 15:37 06/30/25 18:32 Oxycodone 5 Mg Tablet PO 5 mg Q6H PRN Administration Moderate Pain Prochlorperazine Edisylate 10 mg 06/23/25 08:38 06/28/25 06:42 Prochlorperazine 10 Mg/2 Ml Vial IVP 10 mg Q6HR PRN Administration Nausea / Vomiting Quetiapine Fumarate 25 mg 06/29/25 21:00 07/01/25 22:33 Quetiapine 25 Mg Tablet PO 25 mg QPM JANETTE Administration Sodium Chloride 10 ml 06/21/25 13:40 06/28/25 04:10 Sodium Chloride Flush 0.9% 10 Ml Syringe IVP 10 ml PRN PRN Administration NEEDED PER PROVIDER ORDERS Sodium Chloride 10 ml 06/21/25 17:00 07/02/25 08:15 Sodium Chloride Flush 0.9% 10 Ml Syringe IVP 10 ml 0100,0900,1700 JANETTE Administration Objective Vital Signs/Intake & Output Reviewed Vital Signs: Yes Vital Signs: Vital Signs x48h Temp Pulse Resp BP Pulse Ox 07/02/25 10:00 18 07/02/25 09:00 18 07/02/25 08:00 16 07/02/25 07:58 36.6 C 103 H 20 167/93 H 95 07/02/25 06:48 16 07/02/25 06:00 16 07/02/25 05:00 18 Intake & Output: Intake & Output 06/29/25 06/30/25 07/01/25 07/02/25 23:59 23:59 23:59 23:59 Intake Total 2127 / 2127 1907 / 1907 2115 / 2115 105 / 105 Output Total 1350 / 1350 750 / 750 700 / 700 150 / 150 Balance 777 / 777 1157 / 1157 1415 / 1415 -45 / -45 Weight (kg) 99 kg 102.5 kg Objective Comments/Other: GEN: No acute distress. Resting comfortably. HEENT: NC/AT, normal appearance of external ears and nose. Hearing baseline. NGT in place, taped in. Cardiac: Regular rate and rhythm, no murmurs. Pulm: Lungs CTA bilaterally, no cough, no wheezes. Normal effort on room air. Abdomen: Soft, nontender, nondistended. No rebound or guarding Extremities:dressing of left hip is CDI. 2 point nonviolent restraints. Neuro: Face symmetric, CN II through XII intact grossly. No focal neurologic deficits. Psych: Pleasantly demented. Mood euthymic. Normal affect. Lab Results 07/02/25 05:06 07/02/25 05:06 Other Labs: Lab Results x24hrs 07/02/25 Range/Units 05:06 WBC 11.8 H (4.8-10.8) x10^3/uL RBC 2.79 L (4.20-5.40) 10^6/uL Hgb 9.0 L (12.0-16.0) g/dL Hct 28.6 L (37.0-47.0) % MCV 102.5 H (81.0-99.0) fL MCH 32.3 H (27.0-31.0) pg MCHC 31.5 L (32.0-36.0) g/dL RDW 18.6 H (12.0-15.0) % Plt Count 259 (130-450) 10^3/uL MPV 10.1 (7.9-10.8) fL Sodium 134 L (135-145) mmol/L Potassium 4.2 (3.5-4.5) mmol/L Chloride 107 (101-111) mmol/L Carbon Dioxide 22 (21-32) mmol/L Anion Gap 5.0 L (6-13) BUN 23 H (6-20) mg/dL Creatinine 1.0 (0.6-1.3) mg/dL Estimated GFR (MDRD) 52 L (>89) Glucose 130 H (74-104) mg/dL Calcium 7.7 L (8.5-10.3) mg/dL Phosphorus 2.3 L (2.5-5.0) mg/dL Magnesium 1.7 (1.7-2.3) mg/dL Total Bilirubin 0.8 (0.2-1.0) mg/dL AST 21 (10-42) IU/L ALT 13 (10-60) IU/L Alkaline Phosphatase 77 (42-121) IU/L Total Protein 5.0 L (6.4-8.9) g/dL Albumin 2.6 L (3.2-5.5) g/dL Globulin 2.4 (2.1-4.2) g/dL Albumin/Globulin Ratio 1.1 (1.0-2.2) Prealbumin 13 L (17-34) mg/dL Sepsis Event Note (H) Evaluation Current Stage of Sepsis: Septic shock Possible source of Sepsis: positive Unknown Sepsis Criteria Sepsis Criteria: WBC count greater than 12,000 or less than 4000, MAP less than 65 mmHg and Metabolic: lactate > 2 mmol/L Assessment/Plan Problem List (1) Acute metabolic encephalopathy: Impression: Resolved. Patient is at her baseline mental status. Accounting for her underlying Alzheimer's dementia. She is oriented to self, knows she is in the hospital. She is oriented to her caregivers at bedside. Suspect that her acute decompensation was a combination of polypharmacy controlling for her pain postoperatively, postoperative pain and of itself, hospital induced delirium, and her acute illness/shock. As retreating all of these, she is returning to her baseline. - Discontinue LOAN FUNDER, transition to 5 mg oxycodone every 4 hours per NG - Scheduled Tylenol, Lidocaine patch - Continue delirium precautions - Transition from quetiapine nightly to olanzapine ODT for agitation (2) Dysphagia: Impression: Questionable that is possibly improving. Her mentation is improved today. She was seen by speech on 07/01, and thought to not have a safe swallow at that point. NG tube was placed, and she is on tube feeds Extensive conversation with her daughter 07/02, will trial no more than 48 hours of tube feed. If she is unable to improve her swallow, which may be difficult given the large bore NG tube she has in place, we will pull the tube and try her swallow again 07/03. - Tentatively plan for NG tube removal 07/03, may move towards compassionate feeding - Will renew restraints for today - Discontinue fluids as tube feeds are at goal - Appreciate reevaluation by [facility] when staffing allows - I would not recommend a surgical feeding tube in the setting of dementia, and discussed this with her daughter on 07/02 Qualifiers: Dysphagia type: unspecified Qualified Code(s): R13.10 - Dysphagia, unspecified (3) Shock: Impression: Resolved, consistent with hypovolemic shock and ABLA. Improved with blood product and fluids. She did require high dose pressors for 2 days while this was in process. Consideration for septic shock as she had an elevated leukocytosis, but she remained afebrile and cultures remain negative. Antibiotics were discontinued 06/25. Blood pressure is now stabilized. She has been resumed on her home antihypertensives. (4) Acute blood loss anemia: Impression: Resolved, as above (5) NAOMI (acute kidney injury): Impression: Resolved, suspect ATN in setting of shock and hypotension. Improved with fluids as above. Serum creatinine 1.0 as of 07/02. (6) Femoral neck fracture: Impression: Patient's presenting concern after a mechanical ground-level fall. S/p surgical pair 06/22. Complicated by ABLA as above. - PT currently recommending SNF, last evaluated 06/30. - Given her dementia, it would be advantageous if she could go home with home health. She has ample caregiver support at home. - Will request PT reeval as we get closer to discharge - Continue heparin for VTE prophylaxis, has ASA allergy Qualifiers: Encounter type: initial encounter Fracture type: closed Laterality: l eft Qualified Code(s): S72.002A - Fracture of unspecified part of neck of left femur, initial encounter for closed fracture (7) Dementia: Impression: Complicating her stay as above. Delirium as above. Moderate Alzheimer's dementia at baseline. Lives with Her daughter normally. Came in from memory care where she was there for respite. Qualifiers: Alzheimer's disease onset: late onset Dementia behavioral or psychological symptom: with mood disturbance Dementia severity: moderate D ementia type: Alzheimer's Qualified Code(s): G30.1 - Alzheimer's disease with late onset; F02.B3 - Dementia in other diseases classified elsewhere, moderate, with mood disturbance (8) Atrial fibrillation: Impression: Notably she is not on any anticoagulation. Her daughter seems to remember that after she had several falls, that she was taken off of anticoagulation because of her increased bleeding risk. This was several years ago. Tachycardic at times. Anticoagulation as above. Qualifiers: Atrial fibrillation type: longstanding persistent Qualified Code(s): I 48.11 - Longstanding persistent atrial fibrillation (9) Hypertension: Impression: Was hypotensive as above. Now she has remained normotensive despite resuming on her extensive antihypertensive regimen. - Continue Coreg, hydralazine, amlodipine. Qualifiers: Hypertension type: primary hypertension Qualified Code(s): I10 - Essential (primary) hypertension
[2025-07-02] MEDS: ACETAMINOPHEN 325 MG TABLET NG SCH (13:53)
[2025-07-02] MEDS: oxyCODONE 5 MG TABLET NG PRN (15:55)
[2025-07-03] MEDS: MORPHINE 10 MG/ML VIAL IVP ONE (02:16)
[2025-07-03] MEDS: HALOPERIDOL 5 MG/ML VIAL IM ONE (02:16)
--- NOTE | 2025-07-03 08:31 | Speech Therapy Plan of Care ---
DIAGNOSIS Date of Service Date of Service: 07/02/25 Diagnosis: GLF/HIP PX SPEECH ASSESSMENT Assessment: Ms. Heath, 89-y/o F with h/o dementia and recent L hip hemiarthroplasty, was seen for ongoing dysphagia management. Large-bore NG tube remains in place. Participation/Positioning: Pt more alert, calm and engaged compared to yesterday's session. No distress observed except with upright positioning, during which she grimaced and reported L hip pain but proceeded with trials. PO Trials: Ice chips 3, tsp water 3, cup sips water 3, puree (applesauce, IDDSI 4) 1. Oral prep and transit notably improved, with timely swallow initiation. Laryngeal elevation/excursion mildly reduced but judged complete. Two instances of throat clearing noted, likely secondary to NG tube irritation rather than aspiration. Pt also demonstrated intermittent belching and singultus throughout trials. Impression: Improved alertness and swallow function approaching baseline. Mild pharyngeal weakness persists. Recommendations: Continue NPO with NGTF. Reassess tomorrow to determine readiness for advancement. Consider MBSS once mentation and swallow function are consistently at or near baseline to further evaluate safety and determine least restrictive diet. Recommendations discussed with daughter, Fide Hernandez and battery charger tester, Meaghan, who demonstrated understanding. SPEECH PLAN OF CARE Treatment Frequency: Will follow as needed Treatment Duration: Will follow as needed
[2025-07-03 09:23] LABS: HCT - HEMATOCRIT 27.6 % (37.0-47.0); HGB - HEMOGLOBIN 8.9 g/dL (12.0-16.0); MEAN PLATELET VOLUME 9.7 fL (7.9-10.8); PLT - PLATELET COUNT 281.0 10^3/uL (130-450); RED CELL DISTRIBUTION WIDTH 18.7 % (12.0-15.0)
[2025-07-03 09:37] LABS: ALT ALANINE AMINOTRANSFERASE 14.0 IU/L (10-60); AST ASPARTATE AMINOTRANSFERASE 23.0 IU/L (10-42); BUN - BLOOD UREA NITROGEN 24.0 mg/dL (6-20); CARBON DIOXIDE - CO2 22.0 mmol/L (21-32); CREATININE 1.0 mg/dL (0.6-1.3); GFR - MDRD 52.0 (>89)
--- NOTE | 2025-07-03 11:32 | PROVIDER PROGRESS NOTE ---
Subjective Prog Note Date Prog Note Date: 07/03/25 Prog Note Time: 11:31 Subjective Subjective: Patient doing well this morning. She had eventful night last night with uncontrolled pain. She received multiple doses of oxycodone. She did not get much sleep until about 4 AM. Her daughter is at the bedside and says that she mostly just seemed uncomfortable, did not seem like she was in pain. Would fall asleep and quickly awake. Plan to remove NG today and try advancing her diet. Appreciate ECONOMIC ADVISER. Remains hemodynamically stable. Labs reveal hyponatremia (129), Leukocytosis at 14.3. She is not fevering. Denies dyspnea, nausea or vomiting. Patient and family interested in transition to hospice, I have yet to discuss this with them. They discussed it with case maker, consult placed Current Medications Current Medications Current Medications: Current Medications Generic Name Dose Route Start Last Admin Trade Name Freq PRN Reason Stop Dose Admin Acetaminophen 650 mg 07/02/25 13:05 07/03/25 06:47 Acetaminophen 325 Mg Tablet NG 650 mg Q6H JANETTE Administration Amlodipine Besylate 5 mg 07/01/25 09:00 07/03/25 08:08 Amlodipine 5 Mg Tablet PO 5 mg DAILY JANETTE Administration Calamine 1 applic 06/24/25 14:59 06/24/25 17:30 Calamine/Zinc Oxide 177 Ml Bottle TOP 1 applic Q6HR PRN Administration ITCHING Carvedilol 3.125 mg 06/30/25 21:00 07/03/25 08:08 Carvedilol 3.125 Mg Tablet PO 3.125 mg BID JANETTE Administration Docusate Sodium 100 mg 06/21/25 14:17 Docusate Sodium 100 Mg Capsule PO DAILY PRN Constipation Heparin Sodium (Porcine) 5,000 unit 06/29/25 09:00 07/03/25 08:11 Heparin 5,000 Unit/Ml Vial SUBQ 5,000 unit BID JANETTE Administration Hydralazine HCl 100 mg 06/21/25 21:00 07/03/25 08:18 Hydralazine 25 Mg Tablet PO 100 mg BID JANETTE Administration Hydromorphone HCl 1 mg 07/03/25 07:48 Hydromorphone 2 Mg Tablet NG Q4H PRN PAIN 5-7 Hydroxyzine Pamoate 25 mg 06/24/25 14:59 07/02/25 20:17 Hydroxyzine Pamoate 25 Mg Capsule PO 25 mg QPM PRN Administration ITCHING Acetaminophen 1,000 mg in 100 mls @ 400 mls/hr 06/26/25 17:15 06/29/25 14:59 Acetaminophen IV Infused Q6HR PRN Infusion Moderate Pain (Level 4-6) Levothyroxine Sodium 88 mcg 06/22/25 07:00 07/03/25 06:47 Levothyroxine 88 Mcg Tablet PO 88 mcg QDAC JANETTE Administration Lidocaine 1 patch 06/22/25 09:00 07/03/25 08:07 Lidocaine Patch 4% TOP 1 patch DAILY JANETTE Administration Melatonin 6 mg 06/26/25 21:00 07/02/25 20:17 Melatonin 3 Mg Tablet PO 6 mg QPM JANETTE Administration Nystatin 1 applic 06/21/25 14:17 06/25/25 09:44 Nystatin Powder 15 Gm TOP 1 applic TID PRN Administration rash Olanzapine 10 mg 07/02/25 13:03 07/02/25 22:50 Olanzapine Odt 5 Mg Tablet TL 10 mg DAILY PRN Administration Agitation Ondansetron HCl 4 mg 06/21/25 13:42 07/03/25 09:47 Ondansetron Odt 4 Mg Tablet TL 4 mg Q6HR PRN Administration Nausea / Vomiting Ondansetron HCl 4 mg 06/21/25 13:42 06/23/25 13:53 Ondansetron 4 Mg/2 Ml Vial IVP 4 mg Q6HR PRN Administration Nausea / Vomiting Prochlorperazine Edisylate 10 mg 06/23/25 08:38 07/03/25 00:18 Prochlorperazine 10 Mg/2 Ml Vial IVP 10 mg Q6HR PRN Administration Nausea / Vomiting Sodium Chloride 10 ml 06/21/25 13:40 06/28/25 04:10 Sodium Chloride Flush 0.9% 10 Ml Syringe IVP 10 ml PRN PRN Administration NEEDED PER PROVIDER ORDERS Sodium Chloride 10 ml 06/21/25 17:00 07/03/25 08:08 Sodium Chloride Flush 0.9% 10 Ml Syringe IVP 10 ml 0100,0900,1700 JANETTE Administration Objective Vital Signs/Intake & Output Reviewed Vital Signs: Yes Vital Signs: Vital Signs x48h Temp Pulse Resp BP Pulse Ox 07/03/25 08:01 36.6 C 108 H 20 177/92 H 96 Intake & Output: Intake & Output 06/30/25 07/01/25 07/02/25 07/03/25 23:59 23:59 23:59 23:59 Intake Total 1907 / 1907 2115 / 2115 2845 / 2845 915 / 915 Output Total 750 / 750 700 / 700 430 / 430 500 / 500 Balance 1157 / 1157 1415 / 1415 2415 / 2415 415 / 415 Weight (kg) 99 kg 102.5 kg Objective Comments/Other: GEN: No acute distress. Resting comfortably. HEENT: NC/AT, normal appearance of external ears and nose. Hearing baseline. NGT in place, taped in. Cardiac: Regular rate and rhythm, no murmurs. Pulm: Rhonchorous breathing. No wheezes. No cough. Normal effort on room air.. Abdomen: Soft, nontender, nondistended. No rebound or guarding Extremities:dressing of left hip is CDI. 2 point nonviolent restraints. Neuro: Face symmetric, CN II through XII intact grossly. No focal neurologic deficits. Psych: Pleasantly demented. Mood euthymic. Normal affect. Lab Results 07/03/25 09:19 07/03/25 09:19 Other Labs: Lab Results x24hrs 07/03/25 Range/Units 09:19 WBC 14.3 H (4.8-10.8) x10^3/uL RBC 2.73 L (4.20-5.40) 10^6/uL Hgb 8.9 L (12.0-16.0) g/dL Hct 27.6 L (37.0-47.0) % MCV 101.1 H (81.0-99.0) fL MCH 32.6 H (27.0-31.0) pg MCHC 32.2 (32.0-36.0) g/dL RDW 18.7 H (12.0-15.0) % Plt Count 281 (130-450) 10^3/uL MPV 9.7 (7.9-10.8) fL Sodium 129 L (135-145) mmol/L Potassium 4.6 H (3.5-4.5) mmol/L Chloride 103 (101-111) mmol/L Carbon Dioxide 22 (21-32) mmol/L Anion Gap 4.0 L (6-13) BUN 24 H (6-20) mg/dL Creatinine 1.0 (0.6-1.3) mg/dL Estimated GFR (MDRD) 52 L (>89) Glucose 133 H (74-104) mg/dL Calcium 7.6 L (8.5-10.3) mg/dL Total Bilirubin 0.8 (0.2-1.0) mg/dL AST 23 (10-42) IU/L ALT 14 (10-60) IU/L Alkaline Phosphatase 75 (42-121) IU/L Total Protein 5.0 L (6.4-8.9) g/dL Albumin 2.6 L (3.2-5.5) g/dL Globulin 2.4 (2.1-4.2) g/dL Albumin/Globulin Ratio 1.1 (1.0-2.2) Sepsis Event Note (H) Evaluation Current Stage of Sepsis: Septic shock Possible source of Sepsis: positive Unknown Sepsis Criteria Sepsis Criteria: WBC count greater than 12,000 or less than 4000, MAP less than 65 mmHg and Metabolic: lactate > 2 mmol/L Assessment/Plan Problem List (1) Dementia: Impression: Patient with longstanding moderate Alzheimer's. Complicating the rest of her hospitalization. She normally lives with her daughter and has good supports in the community. After her prolonged hospitalization, on hospital day 12, the patient's daughter and POA is opting to transition to a comfort focused approach. - I have referred to hospice, notably they have a backlog right now - Awaiting to putting full EAR[employer] YE[employer] TEACH[employer] orders until I can have a conversation with the daughter Qualifiers: Alzheimer's disease onset: late onset Dementia behavioral or psychological symptom: with mood disturbance Dementia severity: moderate D ementia type: Alzheimer's Qualified Code(s): G30.1 - Alzheimer's disease with late onset; F02.B3 - Dementia in other diseases classified elsewhere, moderate, with mood disturbance (2) Leukocytosis: Impression: Worsening. Unclear overall etiology. She has had episodes of tachycardia today, and rhonchorous breathing. Possibly pneumonia is leading culprit. She additionally is at risk for UTI. - Managing conservatively for now, does not need extensive workup if patient is transitioned to comfort measures only - May offer empiric CAP/UTI treatment for 3 days (3) Acute metabolic encephalopathy: Impression: Resolved. Has had intermittent episodes of agitation. Responsive to Haldol, Seroquel, intermittently responds well to Zyprexa. Patient is at her baseline mental status. Accounting for her underlying Alzheimer's dementia. She is oriented to self, knows she is in the hospital. She is oriented to her caregivers at bedside. Suspect that her acute decompensation was a combination of polypharmacy controlling for her pain postoperatively, postoperative pain and of itself, hospital induced delirium, and her acute illness/shock. - Continue pain management with low-dose oral hydromorphone prn - Scheduled Tylenol, Lidocaine patch - Continue delirium precautions - Olanzapine ODT for agitation (4) Dysphagia: Impression: Somewhat better. She was able to swallow with speech a little better today. Trial of compassionate feeds regardless. NG tube removed today. - NGT removed today - Restraints discontinued - Encourage oral intake, dysphagia diet - Possibly transitioning to hospice as above Qualifiers: Dysphagia type: unspecified Qualified Code(s): R13.10 - Dysphagia, unspecified (5) Shock: Impression: Resolved, consistent with hypovolemic shock and ABLA. Improved with blood product and fluids. She did require high dose pressors for 2 days while this was in process. Consideration for septic shock as she had an elevated leukocytosis, but she remained afebrile and cultures remain negative. Antibiotics were discontinued 06/25. Blood pressure is now stabilized. She has been resumed on her home antihypertensives. (6) Acute blood loss anemia: Impression: Resolved, as above (7) NAOMI (acute kidney injury): Impression: Resolved, suspect ATN in setting of shock and hypotension. Improved with fluids as above. Serum creatinine 1.0 as of 07/02. (8) Femoral neck fracture: Impression: Continues to be quite debilitated. Likely will go home either with home health or on hospice. Patient's presenting concern after a mechanical ground-level fall. S/p surgical pair 06/22. Complicated by ABLA as above. - Given her dementia, it would be advantageous if she could go home with home health. She has ample caregiver support at home. 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 Her daughter seems to remember that after she had several falls, that she was taken off of anticoagulation because of her increased bleeding risk. This was several years ago. Tachycardic at times. Anticoagulation as above. Qualifiers: Atrial fibrillation type: longstanding persistent Qualified Code(s): I 48.11 - Longstanding persistent atrial fibrillation (10) Hypertension: Impression: Was hypotensive as above. Now she has remained normotensive despite resuming on her extensive antihypertensive regimen. - Continue Coreg, hydralazine, amlodipine. Qualifiers: Hypertension type: primary hypertension Qualified Code(s): I10 - Essential (primary) hypertension
[2025-07-03] MEDS: ACETAMINOPHEN 325 MG TABLET PO SCH (16:05)
[2025-07-03] MEDS: SENNA 8.6 MG TABLET PO SCH (21:00)
--- NOTE | 2025-07-04 07:30 | PROVIDER PROGRESS NOTE ---
Subjective Prog Note Date Prog Note Date: 07/04/25 Prog Note Time: 07:29 Subjective Subjective: Patient resting comfortably this morning. She was apparently quite agitated again last evening. She did get some Ativan late in the night and has been resting comfortably since. Plan will still be to transition to hospice. See ACP note from yesterday. Comfort care orders in place. Current Medications Current Medications Current Medications: Current Medications Generic Name Dose Route Start Last Admin Trade Name Freq PRN Reason Stop Dose Admin Acetaminophen 650 mg 07/03/25 15:42 07/04/25 04:00 Acetaminophen 325 Mg Tablet PO Not Given Q6H JANETTE Amlodipine Besylate 5 mg 07/01/25 09:00 07/03/25 08:08 Amlodipine 5 Mg Tablet PO 5 mg DAILY JANETTE Administration Calamine 1 applic 06/24/25 14:59 06/24/25 17:30 Calamine/Zinc Oxide 177 Ml Bottle TOP 1 applic Q6HR PRN Administration ITCHING Carvedilol 3.125 mg 06/30/25 21:00 07/03/25 20:05 Carvedilol 3.125 Mg Tablet PO 3.125 mg BID JANETTE Administration Docusate Sodium 100 mg 06/21/25 14:17 Docusate Sodium 100 Mg Capsule PO DAILY PRN Constipation Heparin Sodium (Porcine) 5,000 unit 06/29/25 09:00 07/03/25 21:00 Heparin 5,000 Unit/Ml Vial SUBQ Not Given BID JANETTE Hydralazine HCl 100 mg 06/21/25 21:00 07/03/25 20:02 Hydralazine 25 Mg Tablet PO 100 mg BID JANETTE Administration Hydromorphone HCl 1 mg 07/03/25 15:43 Hydromorphone 2 Mg Tablet PO Q4H PRN PAIN 5-7 Hydroxyzine Pamoate 25 mg 06/24/25 14:59 07/03/25 20:03 Hydroxyzine Pamoate 25 Mg Capsule PO 25 mg QPM PRN Administration ITCHING Levothyroxine Sodium 88 mcg 06/22/25 07:00 07/03/25 06:47 Levothyroxine 88 Mcg Tablet PO 88 mcg QDAC JANETTE Administration Lidocaine 1 patch 06/22/25 09:00 07/03/25 08:07 Lidocaine Patch 4% TOP 1 patch DAILY JANETTE Administration Lorazepam 1 mg 07/03/25 19:38 07/03/25 20:02 Lorazepam 1 Mg Tablet SL 1 mg Q4H PRN Administration Anxiety Melatonin 6 mg 06/26/25 21:00 07/03/25 20:04 Melatonin 3 Mg Tablet PO 6 mg QPM JANETTE Administration Nystatin 1 applic 06/21/25 14:17 06/25/25 09:44 Nystatin Powder 15 Gm TOP 1 applic TID PRN Administration rash Olanzapine 10 mg 07/03/25 12:25 07/03/25 12:37 Olanzapine Odt 5 Mg Tablet TL 10 mg Q12H PRN Administration Agitation Ondansetron HCl 4 mg 06/21/25 13:42 07/03/25 09:47 Ondansetron Odt 4 Mg Tablet TL 4 mg Q6HR PRN Administration Nausea / Vomiting Ondansetron HCl 4 mg 06/21/25 13:42 06/23/25 13:53 Ondansetron 4 Mg/2 Ml Vial IVP 4 mg Q6HR PRN Administration Nausea / Vomiting Prochlorperazine Edisylate 10 mg 06/23/25 08:38 07/03/25 00:18 Prochlorperazine 10 Mg/2 Ml Vial IVP 10 mg Q6HR PRN Administration Nausea / Vomiting Quetiapine Fumarate 50 mg 07/03/25 21:00 07/03/25 22:00 Quetiapine 25 Mg Tablet PO Not Given QPM JANETTE Senna 8.6 - 17.2 mg 07/03/25 20:00 07/03/25 21:00 Senna 8.6 Mg Tablet PO Not Given DAILY [facility] [place] Objective Vital Signs/Intake & Output Reviewed Vital Signs: Yes Vital Signs: Vital Signs x48h Temp Pulse Resp BP Pulse Ox 07/04/25 05:39 36.4 C L 88 18 156/96 H 93 Intake & Output: Intake & Output 07/01/25 07/02/25 07/03/25 07/04/25 23:59 23:59 23:59 23:59 Intake Total 2115 / 2115 2845 / 2845 1035 / 1035 Output Total 700 / 700 430 / 430 950 / 950 600 / 600 Balance 1415 / 1415 2415 / 2415 85 / 85 -600 / -600 Weight (kg) 102.5 kg 102 kg 102 kg Objective Comments/Other: GEN: No acute distress. Resting comfortably. HEENT: NC/AT, normal appearance of external ears and nose. Cardiac: Regular rate and rhythm, no murmurs. Pulm: Rhonchorous breathing. No wheezes. No cough. Normal effort on room air.. Abdomen: Soft, nontender, nondistended. No rebound or guarding Neuro: Face symmetric, CN II through XII intact grossly. No focal neurologic deficits. Strong muscle tone. Psych: Rouses easily from sleep. Pleasantly demented. Mood is euthymic. Cooperative. Lab Results 07/03/25 09:19 07/03/25 09:19 Other Labs: Lab Results x24hrs 07/03/25 Range/Units 09:19 WBC 14.3 H (4.8-10.8) x10^3/uL RBC 2.73 L (4.20-5.40) 10^6/uL Hgb 8.9 L (12.0-16.0) g/dL Hct 27.6 L (37.0-47.0) % MCV 101.1 H (81.0-99.0) fL MCH 32.6 H (27.0-31.0) pg MCHC 32.2 (32.0-36.0) g/dL RDW 18.7 H (12.0-15.0) % Plt Count 281 (130-450) 10^3/uL MPV 9.7 (7.9-10.8) fL Sodium 129 L (135-145) mmol/L Potassium 4.6 H (3.5-4.5) mmol/L Chloride 103 (101-111) mmol/L Carbon Dioxide 22 (21-32) mmol/L Anion Gap 4.0 L (6-13) BUN 24 H (6-20) mg/dL Creatinine 1.0 (0.6-1.3) mg/dL Estimated GFR (MDRD) 52 L (>89) Glucose 133 H (74-104) mg/dL Calcium 7.6 L (8.5-10.3) mg/dL Total Bilirubin 0.8 (0.2-1.0) mg/dL AST 23 (10-42) IU/L ALT 14 (10-60) IU/L Alkaline Phosphatase 75 (42-121) IU/L Total Protein 5.0 L (6.4-8.9) g/dL Albumin 2.6 L (3.2-5.5) g/dL Globulin 2.4 (2.1-4.2) g/dL Albumin/Globulin Ratio 1.1 (1.0-2.2) Sepsis Event Note (H) Evaluation Current Stage of Sepsis: Septic shock Possible source of Sepsis: positive Unknown Sepsis Criteria Sepsis Criteria: WBC count greater than 12,000 or less than 4000, MAP less than 65 mmHg and Metabolic: lactate > 2 mmol/L Assessment/Plan Problem List (1) Dementia: Impression: Patient with longstanding moderate Alzheimer's. Complicating the rest of her hospitalization. She normally lives with her daughter and has good supports in the community. After her prolonged hospitalization, on hospital day 12, the patient's daughter and POA is opting to transition to a comfort focused approach. - I have referred to hospice, notably they have a backlog right now - Plan will be to discharge to home with hospice to meet them thereafter, tentatively in the next couple of days - Discussed with daughter 07/03 in 07/04. They are agreeable that she should transition to PATCHER - Meanwhile daughter is working to optimize their home to take her mother back with them. - Patient has 2 caregivers in addition to her family for support - POLST completed 07/04, PATCHER, scanned into the chart, and originals with the patient. - Lorazepam for terminal agitation. - Otherwise medical management de-escalated. Qualifiers: Alzheimer's disease onset: late onset Dementia behavioral or psychological symptom: with mood disturbance Dementia severity: moderate D ementia type: Alzheimer's Qualified Code(s): G30.1 - Alzheimer's disease with late onset; F02.B3 - Dementia in other diseases classified elsewhere, moderate, with mood disturbance (2) Leukocytosis: Impression: At the time of transition to comfort measures, she did have a rising leukocytosis. She denies any fevers or chills. Her vital signs remained stable. Unclear etiology with no localizing symptoms - No longer trending in the setting of her comfort measures status (3) Acute metabolic encephalopathy: Impression: Resolved. Has had intermittent episodes of agitation. Responsive to Haldol, Seroquel, intermittently responds well to Zyprexa. Patient is at her baseline mental status. Accounting for her underlying Alzheimer's dementia. She is oriented to self, knows she is in the hospital. She is oriented to her caregivers at bedside. Suspect that her acute decompensation was a combination of polypharmacy controlling for her pain postoperatively, postoperative pain and of itself, hospital induced delirium, and her acute illness/shock. - Continue pain management with low-dose oral hydromorphone prn - Scheduled Tylenol, Lidocaine patch - Continue delirium precautions - Quetiapine nightly and sublingual lorazepam as above (4) Dysphagia: Impression: Patient had dysphagia after time in the ICU. She briefly had an NGT placed and was on tube feeds. This was discontinued 07/03. - She is on a compassionate diet, appreciate speech involvement. Family understand the risks she may aspirate. - Restraints and NGT removed on 07/03. Qualifiers: Dysphagia type: unspecified Qualified Code(s): R13.10 - Dysphagia, unspecified (5) Shock: Impression: Resolved, consistent with hypovolemic shock and ABLA. Improved with blood product and fluids. She did require high dose pressors for 2 days while this was in process. Consideration for septic shock as she had an elevated leukocytosis, but she remained afebrile and cultures remain negative. Antibiotics were discontinued 06/25. Blood pressure is now stabilized. She has been resumed on her home antihypertensives. (6) Acute blood loss anemia: Impression: Resolved, as above (7) NAOMI (acute kidney injury): Impression: Resolved, suspect ATN in setting of shock and hypotension. Improved with fluids as above. Serum creatinine 1.0 as of 07/02. (8) Femoral neck fracture: Impression: Continues to be quite debilitated. Going home with hospice. Patient's presenting concern after a mechanical ground-level fall. S/p surgical pair 06/22. Complicated by ABLA as above. - Given her dementia, it would be advantageous if she could go home with home health. She has ample caregiver support at home. - Discontinue VTE prophylaxis. Qualifiers: Encounter type: initial encounter Fracture type: closed Laterality: l eft Qualified Code(s): S72.002A - Fracture of unspecified part of neck of left femur, initial encounter for closed fracture (9) Atrial fibrillation: Impression: Notably she is not on any anticoagulation. Her daughter seems to remember that after she had several falls, that she was taken off of anticoagulation because of her increased bleeding risk. This was several years ago. Tachycardic at times. Anticoagulation as above. Qualifiers: Atrial fibrillation type: longstanding persistent Qualified Code(s): I 48.11 - Longstanding persistent atrial fibrillation (10) Hypertension: Impression: Was hypotensive as above. Now she has remained normotensive despite resuming on her extensive antihypertensive regimen. - Discontinue antihypertensives given goals of care. Qualifiers: Hypertension type: primary hypertension Qualified Code(s): I10 - Essential (primary) hypertension
[2025-07-04] MEDS ORDERED: ACETAMINOPHEN 650 MG SUPP PR PRN (09:36)
--- NOTE | 2025-07-04 09:36 | ADVANCE CARE PLANNING NOTE ---
Advance Care Planning Planning Encounter Date: 07/03/25 Time: 16:25 Diagnosis for Encounter (1) Dementia: Qualifiers: Dementia type: Alzheimer's Alzheimer's disease onset: late onset Dementia severity: moderate Dementia behavioral or psychological symptom: with mood disturbance Qualified Code(s): G30.1 - Alzheimer's disease with late onset; F02.B3 - Dementia in other diseases classified elsewhere, moderate, with mood disturbance (2) Leukocytosis: (3) Acute metabolic encephalopathy: (4) Dysphagia: Qualifiers: Dysphagia type: unspecified Qualified Code(s): R13.10 - Dysphagia, unspecified (5) Shock: (6) Acute blood loss anemia: (7) NAOMI (acute kidney injury): (8) Femoral neck fracture: Qualifiers: Encounter type: initial encounter Fracture type: closed Laterality: left Qualified Code(s): S72.002A - Fracture of unspecified part of neck of left femur, initial encounter for closed fracture (9) Atrial fibrillation: Qualifiers: Atrial fibrillation type: longstanding persistent Qualified Code(s): I48.11 - Longstanding persistent atrial fibrillation (10) Hypertension: Qualifiers: Hypertension type: primary hypertension Qualified Code(s): I10 - Essential (primary) hypertension Encounter Additional Discussion: Prolonged conversation with patient's daughter Fide Hernandez. The patient due to her chronic cognitive issues as well as acute encephalopathy cannot participate in our conversation. The patient's daughter earlier today discussed with social work and so they want to pursue hospice. Fide says that she came to this decision after her mother's been begging to go home all day on 07/03. Patient had one of her daughters called in by phone, she greeted this daughter said how are you doing, and then immediately started screaming about wanting to go home. The patient's daughter has been introduced to the idea of hospice multiple times during this hospitalization, and feels like they have exhausted other options. Given the patient's chronic neurodegenerative disorder and her acute illness, this is not inappropriate. The patient's daughter has been taking steps to get their home situated for the patient to come home with them. They have 2 caregivers who come intermittently but do not provide 24-hour care. The patient's daughter will be taking on most of the interval care. They are interested in enrolling in hospice. I discussed with hospice on 07/03 extensively and they are currently backlogged but trying to get patient's prioritized. They have not yet called the patient. 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 Will de-escalate any none comfort focused treatments. We will add on comfort medications. I will send comfort meds to the local pharmacy in the next 24 hours so that they can have them when they are ready to take her home. Once there is a date to arrange with hospice and the patient has a safe place to disposition towards, she will discharge from the hospital. New POLST completed, will get scanned in with comfort measures only. Code Status: Do Not Attempt Resuscitation Time spent on advance care plannin
[2025-07-04] MEDS: MORPHINE SOL 10 MG/0.5 ML ORAL SYRINGE SL PRN (17:16)
[2025-07-05] MEDS: BISACODYL 10 MG SUPP PR PRN (05:46)
--- NOTE | 2025-07-05 11:57 | PROVIDER PROGRESS NOTE ---
Subjective Prog Note Date Prog Note Date: 07/05/25 Prog Note Time: 11:55 Subjective Pt reports feeling: No change Subjective: Patient is resting comfortably this morning. I did not wake her. She has had an uneventful night. She has been using as needed anxiolytics. Not much by way of pain. Her vital signs which were collected overnight were stable. She is eating and drinking and conversing with family at times. I discussed with her daughter at bedside. They are working on getting the home arranged for patient to come home. She still anticipates it may take 1 to 2 days. She has not heard from hospice. Discussed with case management who will coordinate with hospice. Current Medications Current Medications Current Medications: Current Medications Generic Name Dose Route Start Last Admin Trade Name Freq PRN Reason Stop Dose Admin Acetaminophen 650 mg 07/04/25 09:36 Acetaminophen 650 Mg Supp MO Q4H PRN Fever >101 Bisacodyl 10 mg 07/05/25 05:42 07/05/25 05:46 Bisacodyl 10 Mg Supp MO 10 mg DAILY PRN Administration Constipation Calamine 1 applic 06/24/25 14:59 06/24/25 17:30 Calamine/Zinc Oxide 177 Ml Bottle TOP 1 applic Q6HR PRN Administration ITCHING Carvedilol 3.125 mg 06/30/25 21:00 07/05/25 10:05 Carvedilol 3.125 Mg Tablet PO 3.125 mg BID JANETTE Administration Docusate Sodium 100 mg 06/21/25 14:17 Docusate Sodium 100 Mg Capsule PO DAILY PRN Constipation Glycopyrrolate 0.2 mg 07/04/25 09:36 Glycopyrrolate 1 Mg/5 Ml Vial SUBQ Q4H PRN Excessive secretions Hydralazine HCl 100 mg 06/21/25 21:00 07/05/25 10:05 Hydralazine 25 Mg Tablet PO 100 mg BID JANETTE Administration Lidocaine 1 patch 06/22/25 09:00 07/05/25 10:05 Lidocaine Patch 4% TOP Not Given DAILY JANETTE Lorazepam 1 mg 07/03/25 19:38 07/05/25 11:51 Lorazepam 1 Mg Tablet SL 1 mg Q4H PRN Administration Anxiety Melatonin 6 mg 06/26/25 21:00 07/04/25 20:05 Melatonin 3 Mg Tablet PO 6 mg QPM JANETTE Administration Morphine Sulfate 10 mg 07/04/25 09:36 07/04/25 17:16 Morphine Darline 10 Mg/0.5 Ml Oral Syringe SL 10 mg Q2HR PRN Administration Moderate Pain (Level 4-6)/SOA Nystatin 1 applic 06/21/25 14:17 06/25/25 09:44 Nystatin Powder 15 Gm TOP 1 applic TID PRN Administration rash Ondansetron HCl 4 mg 06/21/25 13:42 07/03/25 09:47 Ondansetron Odt 4 Mg Tablet TL 4 mg Q6HR PRN Administration Nausea / Vomiting Ondansetron HCl 4 mg 06/21/25 13:42 06/23/25 13:53 Ondansetron 4 Mg/2 Ml Vial IVP 4 mg Q6HR PRN Administration Nausea / Vomiting Polyethylene Glycol 17 gm 07/04/25 09:36 Polyethylene Glycol 3350 17 Gm Packet PO DAILY PRN Constipation Prochlorperazine Edisylate 10 mg 06/23/25 08:38 07/03/25 00:18 Prochlorperazine 10 Mg/2 Ml Vial IVP 10 mg Q6HR PRN Administration Nausea / Vomiting Quetiapine Fumarate 50 mg 07/03/25 21:00 07/04/25 20:05 Quetiapine 25 Mg Tablet PO 50 mg QPM JANETTE Administration Senna 8.6 - 17.2 mg 07/03/25 20:00 07/05/25 10:04 Senna 8.6 Mg Tablet PO 8.6 mg DAILY JANETTE Administration Objective Vital Signs/Intake & Output Reviewed Vital Signs: Yes Vital Signs: Vital Signs x48h Temp Pulse Resp BP Pulse Ox 07/04/25 05:39 36.4 C L 88 18 156/96 H 93 Intake & Output: Intake & Output 07/02/25 07/03/25 07/04/25 07/05/25 23:59 23:59 23:59 23:59 Intake Total 2845 / 2845 1035 / 1035 Output Total 430 / 430 950 / 950 950 / 950 Balance 2415 / 2415 85 / 85 -950 / -950 Weight (kg) 102.5 kg 102 kg 102 kg Objective Comments/Other: GEN: No acute distress. Resting comfortably. HEENT: NC/AT, normal appearance of external ears and nose. Cardiac: Regular rate and rhythm, no murmurs. Pulm: Normal effort on room air. Diffuse rales. Absent cough. Abdomen: Soft, nontender, nondistended. No rebound or guarding Neuro: Face symmetric, CN II through XII intact grossly. No focal neurologic deficits. Strong muscle tone. Psych: Rouses easily from sleep. Euthymic mood. Cooperative. Lab Results 07/03/25 09:19 07/03/25 09:19 Other Labs: Lab Results x24hrs 07/03/25 Range/Units 09:19 WBC 14.3 H (4.8-10.8) x10^3/uL RBC 2.73 L (4.20-5.40) 10^6/uL Hgb 8.9 L (12.0-16.0) g/dL Hct 27.6 L (37.0-47.0) % MCV 101.1 H (81.0-99.0) fL MCH 32.6 H (27.0-31.0) pg MCHC 32.2 (32.0-36.0) g/dL RDW 18.7 H (12.0-15.0) % Plt Count 281 (130-450) 10^3/uL MPV 9.7 (7.9-10.8) fL Sodium 129 L (135-145) mmol/L Potassium 4.6 H (3.5-4.5) mmol/L Chloride 103 (101-111) mmol/L Carbon Dioxide 22 (21-32) mmol/L Anion Gap 4.0 L (6-13) BUN 24 H (6-20) mg/dL Creatinine 1.0 (0.6-1.3) mg/dL Estimated GFR (MDRD) 52 L (>89) Glucose 133 H (74-104) mg/dL Calcium 7.6 L (8.5-10.3) mg/dL Total Bilirubin 0.8 (0.2-1.0) mg/dL AST 23 (10-42) IU/L ALT 14 (10-60) IU/L Alkaline Phosphatase 75 (42-121) IU/L Total Protein 5.0 L (6.4-8.9) g/dL Albumin 2.6 L (3.2-5.5) g/dL Globulin 2.4 (2.1-4.2) g/dL Albumin/Globulin Ratio 1.1 (1.0-2.2) Sepsis Event Note (H) Evaluation Current Stage of Sepsis: Septic shock Possible source of Sepsis: positive Unknown Sepsis Criteria Sepsis Criteria: WBC count greater than 12,000 or less than 4000, MAP less than 65 mmHg and Metabolic: lactate > 2 mmol/L Assessment/Plan Problem List (1) Dementia: Impression: Stable and unchanged. Pending dispo to home with hospice. Daughter has still not heard from hospice yet. She is working to purchase equipment for home independently. Patient with longstanding moderate Alzheimer's. Complicating the rest of her hospitalization. She normally lives with her daughter and has good supports in the community. After her prolonged hospitalization, on hospital day 12, the patient's daughter and POA is opting to transition to a comfort focused approach. - I have referred to hospice, notably they have a backlog right now - Plan will be to discharge to home with hospice to meet them thereafter, tentatively in the next couple of days - Discussed with daughter 07/03 in 07/04. They are agreeable that she should transition to ELECTRIC SCOOP OPERATOR - Meanwhile daughter is working to optimize their home to take her mother back with them. - Patient has 2 caregivers in addition to her family for support - DME order written for patient to have pure wick at home. Suspect hospice can supply this if insurance will not cover it otherwise. - WAYNE completed 07/04, ELECTRIC SCOOP OPERATOR, scanned into the chart, and originals with the patient. - Lorazepam for terminal agitation. - Med ready pending safe dispo plan. Qualifiers: Dementia type: Alzheimer's Alzheimer's disease onset: late onset D ementia severity: moderate Dementia behavioral or psychological symptom: with mood disturbance Qualified Code(s): G30.1 - Alzheimer's disease with late onset; F02.B3 - Dementia in other diseases classified elsewhere, moderate, with mood disturbance (2) Leukocytosis: Impression: At the time of transition to comfort measures, she did have a rising leukocytosis. She denies any fevers or chills. Her vital signs remained stable. Unclear etiology with no localizing symptoms - No longer trending in the setting of her comfort measures status (3) Acute metabolic encephalopathy: Impression: Resolved. Has had intermittent episodes of agitation. Responsive to Haldol, Seroquel, intermittently responds well to Zyprexa. Patient is at her baseline mental status. Accounting for her underlying Alzheimer's dementia. She is oriented to self, knows she is in the hospital. She is oriented to her caregivers at bedside. Suspect that her acute decompensation was a combination of polypharmacy controlling for her pain postoperatively, postoperative pain and of itself, hospital induced delirium, and her acute illness/shock. - Continue pain management with low-dose oral hydromorphone prn - Scheduled Tylenol, Lidocaine patch - Continue delirium precautions - Quetiapine nightly and sublingual lorazepam as above (4) Dysphagia: Impression: Patient had dysphagia after time in the ICU. She briefly had an NGT placed and was on tube feeds. This was discontinued 07/03. - She is on a compassionate diet, appreciate speech involvement. Family understand the risks she may aspirate. - Restraints and NGT removed on 07/03. Qualifiers: Dysphagia type: unspecified Qualified Code(s): R13.10 - Dysphagia, unspecified (5) Shock: Impression: Resolved, consistent with hypovolemic shock and ABLA. Improved with blood product and fluids. She did require high dose pressors for 2 days while this was in process. Consideration for septic shock as she had an elevated leukocytosis, but she remained afebrile and cultures remain negative. Antibiotics were discontinued 06/25. Blood pressure is now stabilized. She has been resumed on her home antihypertensives. (6) Acute blood loss anemia: Impression: Resolved, as above (7) NAOMI (acute kidney injury): Impression: Resolved, suspect ATN in setting of shock and hypotension. Improved with fluids as above. Serum creatinine 1.0 as of 07/02. (8) Femoral neck fracture: Impression: Continues to be quite debilitated. Going home with hospice. Patient's presenting concern after a mechanical ground-level fall. S/p surgical pair 06/22. Complicated by ABLA as above. Before she transitioned to ELECTRIC SCOOP OPERATOR, plan was for home with home health. Qualifiers: Encounter type: initial encounter Fracture type: closed Laterality: l eft Qualified Code(s): S72.002A - Fracture of unspecified part of neck of left femur, initial encounter for closed fracture (9) Atrial fibrillation: Impression: Notably she is not on any anticoagulation. Her daughter seems to remember that after she had several falls, that she was taken off of anticoagulation because of her increased bleeding risk. This was several years ago. Tachycardic at times. Anticoagulation as above. Qualifiers: Atrial fibrillation type: longstanding persistent Qualified Code(s): I 48.11 - Longstanding persistent atrial fibrillation (10) Hypertension: Impression: Antihypertensives have not been discontinued given her goals of care. Qualifiers: Hypertension type: primary hypertension Qualified Code(s): I10 - Essential (primary) hypertension
[2025-07-06] MEDS: DOCUSATE SODIUM 100 MG CAPSULE PO PRN (08:53)
--- NOTE | 2025-07-06 10:22 | PROVIDER PROGRESS NOTE ---
Subjective Prog Note Date Prog Note Date: 07/06/25 Prog Note Time: 10:17 Subjective Subjective: Patient had a rough night. She has been having worsening pain and agitation. Treated with PRNs. This morning, her pain in her left hip is uncontrollable for the patient. Found to have dressings that are saturated with old blood. Malodorous blood is leaking from the staple line around her surgical incision. Ultrasound was done at bedside and shows a large confluent hematoma approximately 2 cm under the skin. Discussed her case with orthopedic surgery, who is agreeing to come to the bedside. Current Medications Current Medications Current Medications: Current Medications Generic Name Dose Route Start Last Admin Trade Name Freq PRN Reason Stop Dose Admin Acetaminophen 650 mg 07/04/25 09:36 Acetaminophen 650 Mg Supp MO Q4H PRN Fever >101 Bisacodyl 10 mg 07/05/25 05:42 07/05/25 05:46 Bisacodyl 10 Mg Supp MO 10 mg DAILY PRN Administration Constipation Calamine 1 applic 06/24/25 14:59 06/24/25 17:30 Calamine/Zinc Oxide 177 Ml Bottle TOP 1 applic Q6HR PRN Administration ITCHING Carvedilol 3.125 mg 06/30/25 21:00 07/06/25 08:52 Carvedilol 3.125 Mg Tablet PO 3.125 mg BID JANETTE Administration Docusate Sodium 100 mg 06/21/25 14:17 07/06/25 08:53 Docusate Sodium 100 Mg Capsule PO 100 mg DAILY PRN Administration Constipation Glycopyrrolate 0.2 mg 07/04/25 09:36 Glycopyrrolate 1 Mg/5 Ml Vial SUBQ Q4H PRN Excessive secretions Hydralazine HCl 100 mg 06/21/25 21:00 07/06/25 08:52 Hydralazine 25 Mg Tablet PO 100 mg BID JANETTE Administration Lidocaine 1 patch 06/22/25 09:00 07/06/25 08:53 Lidocaine Patch 4% TOP 1 patch DAILY JANETTE Administration Lorazepam 1 mg 07/03/25 19:38 07/06/25 08:53 Lorazepam 1 Mg Tablet SL 1 mg Q4H PRN Administration Anxiety Melatonin 6 mg 06/26/25 21:00 07/05/25 21:40 Melatonin 3 Mg Tablet PO 6 mg QPM JANETTE Administration Morphine Sulfate 10 mg 07/04/25 09:36 07/06/25 08:52 Morphine Darlien 10 Mg/0.5 Ml Oral Syringe SL 10 mg Q2HR PRN Administration Moderate Pain (Level 4-6)/SOA Nystatin 1 applic 06/21/25 14:17 06/25/25 09:44 Nystatin Powder 15 Gm TOP 1 applic TID PRN Administration rash Ondansetron HCl 4 mg 06/21/25 13:42 07/03/25 09:47 Ondansetron Odt 4 Mg Tablet TL 4 mg Q6HR PRN Administration Nausea / Vomiting Ondansetron HCl 4 mg 06/21/25 13:42 06/23/25 13:53 Ondansetron 4 Mg/2 Ml Vial IVP 4 mg Q6HR PRN Administration Nausea / Vomiting Polyethylene Glycol 17 gm 07/04/25 09:36 Polyethylene Glycol 3350 17 Gm Packet PO DAILY PRN Constipation Prochlorperazine Edisylate 10 mg 06/23/25 08:38 07/03/25 00:18 Prochlorperazine 10 Mg/2 Ml Vial IVP 10 mg Q6HR PRN Administration Nausea / Vomiting Quetiapine Fumarate 50 mg 07/03/25 21:00 07/05/25 21:42 Quetiapine 25 Mg Tablet PO 50 mg QPM JANETTE Administration Senna 8.6 - 17.2 mg 07/03/25 20:00 07/06/25 08:52 Senna 8.6 Mg Tablet PO 8.6 mg DAILY JANETTE Administration Objective Vital Signs/Intake & Output Reviewed Vital Signs: Yes Vital Signs: Vital Signs x48h Temp Pulse Resp BP Pulse Ox 07/06/25 08:09 37 C 111 H 18 166/86 H 93 Intake & Output: Intake & Output 07/03/25 07/04/25 07/05/25 07/06/25 23:59 23:59 23:59 23:59 Intake Total 1035 / 1035 380 / 380 Output Total 950 / 950 950 / 950 150 / 150 Balance 85 / 85 -950 / -950 230 / 230 Weight (kg) 102 kg 102 kg Objective Comments/Other: GEN: No acute distress. Resting comfortably. HEENT: NC/AT, normal appearance of external ears and nose. Cardiac: Regular rate and rhythm, no murmurs. Pulm: Normal effort on room air. Diffuse rales. Absent cough. Abdomen: Soft, nontender, nondistended. No rebound or guarding Neuro: Face symmetric, CN II through XII intact grossly. No focal neurologic deficits. Strong muscle tone. Psych: Rouses easily from sleep. Euthymic mood. Cooperative. Lab Results 07/03/25 09:19 07/03/25 09:19 Other Labs: Lab Results x24hrs 07/03/25 Range/Units 09:19 WBC 14.3 H (4.8-10.8) x10^3/uL RBC 2.73 L (4.20-5.40) 10^6/uL Hgb 8.9 L (12.0-16.0) g/dL Hct 27.6 L (37.0-47.0) % MCV 101.1 H (81.0-99.0) fL MCH 32.6 H (27.0-31.0) pg MCHC 32.2 (32.0-36.0) g/dL RDW 18.7 H (12.0-15.0) % Plt Count 281 (130-450) 10^3/uL MPV 9.7 (7.9-10.8) fL Sodium 129 L (135-145) mmol/L Potassium 4.6 H (3.5-4.5) mmol/L Chloride 103 (101-111) mmol/L Carbon Dioxide 22 (21-32) mmol/L Anion Gap 4.0 L (6-13) BUN 24 H (6-20) mg/dL Creatinine 1.0 (0.6-1.3) mg/dL Estimated GFR (MDRD) 52 L (>89) Glucose 133 H (74-104) mg/dL Calcium 7.6 L (8.5-10.3) mg/dL Total Bilirubin 0.8 (0.2-1.0) mg/dL AST 23 (10-42) IU/L ALT 14 (10-60) IU/L Alkaline Phosphatase 75 (42-121) IU/L Total Protein 5.0 L (6.4-8.9) g/dL Albumin 2.6 L (3.2-5.5) g/dL Globulin 2.4 (2.1-4.2) g/dL Albumin/Globulin Ratio 1.1 (1.0-2.2) Sepsis Event Note (H) Evaluation Current Stage of Sepsis: Septic shock Possible source of Sepsis: positive Unknown Sepsis Criteria Sepsis Criteria: WBC count greater than 12,000 or less than 4000, MAP less than 65 mmHg and Metabolic: lactate > 2 mmol/L Assessment/Plan Problem List (1) Hematoma: Impression: Patient has a known hematoma in her left hip, identified on CT postoperatively. It was large at that time. She is having more pain in her left hip on 07/06 and copious malodorous drainage. Treatment of this is challenging, given her hospice status. I would like to opt for percutaneous aspiration to avoid any large procedure for her. This is suboptimal though, awaiting orthopedic surgery insights. - Discussed with orthopedic surgery, they will come to bedside - Bedside ultrasound completed 07/06. - Likely propose needle aspiration to the family for palliative management (2) Dementia: Impression: Somewhat worse today. Patient is quite anxious. She is forgetful that she is in the hospital. She just wants to go home she says. Pending dispo to home with hospice. Daughter has still not heard from hospice yet. She is working to purchase equipment for home independently. Patient with longstanding moderate Alzheimer's. Complicating the rest of her hospitalization. She normally lives with her daughter and has good supports in the community. After her prolonged hospitalization, on hospital day 12, the patient's daughter and POA is opting to transition to a comfort focused approach. - Patient needing mounting levels of Ativan, quite distressed - Plan will be to discharge to home with hospice to meet them thereafter, tentatively Tuesday or Tuesday - DME order written for patient to have purewick at home. Suspect hospice can supply this if insurance will not cover it otherwise. - POLST completed 07/04, scanned into the chart, and originals with the patient. - Lorazepam for terminal agitation, Dose increased to 1.5 every 3 hours 07/06 - Med ready pending safe dispo plan. Qualifiers: Alzheimer's disease onset: late onset Dementia behavioral or psychological symptom: with mood disturbance Dementia severity: moderate D ementia type: Alzheimer's Qualified Code(s): G30.1 - Alzheimer's disease with late onset; F02.B3 - Dementia in other diseases classified elsewhere, moderate, with mood disturbance (3) Leukocytosis: Impression: At the time of transition to comfort measures, she did have a rising leukocytosis. She denies any fevers or chills. Her vital signs remained stable. Suspect she may have some underlying infection or hematoma. - No longer trending in the setting of her comfort measures status (4) Dysphagia: Impression: Patient had dysphagia after time in the ICU. She briefly had an NGT placed and was on tube feeds. This was discontinued 07/03. - She is on a compassionate diet, appreciate speech involvement. Family understand the risks she may aspirate. - Restraints and NGT removed on 07/03. Qualifiers: Dysphagia type: unspecified Qualified Code(s): R13.10 - Dysphagia, unspecified (5) Shock: Impression: Resolved, consistent with hypovolemic shock and ABLA. Improved with blood product and fluids. She did require high dose pressors for 2 days while this was in process. Consideration for septic shock as she had an elevated leukocytosis, but she remained afebrile and cultures remain negative. Antibiotics were discontinued 06/25. Blood pressure is now stabilized. She has been resumed on her home antihypertensives. (6) Acute blood loss anemia: Impression: Resolved, as above (7) NAOMI (acute kidney injury): Impression: Resolved, suspect ATN in setting of shock and hypotension. Improved with fluids as above. Serum creatinine 1.0 as of 07/02. (8) Femoral neck fracture: Impression: Continues to be quite debilitated. Going home with hospice. Hematoma associated as above. Patient's presenting concern after a mechanical ground-level fall. S/p surgical pair 06/22. Complicated by ABLA as above. Before she transitioned to [facility], plan was for home with home health. Qualifiers: Encounter type: initial encounter Fracture type: closed Laterality: l eft Qualified Code(s): S72.002A - Fracture of unspecified part of neck of left femur, initial encounter for closed fracture (9) Atrial fibrillation: Impression: Notably she is not on any anticoagulation. Her daughter seems to remember that after she had several falls, that she was taken off of anticoagulation because of her increased bleeding risk. This was several years ago. Tachycardic at times. Anticoagulation as above. Qualifiers: Atrial fibrillation type: longstanding persistent Qualified Code(s): I 48.11 - Longstanding persistent atrial fibrillation (10) Hypertension: Impression: Antihypertensives have not been discontinued given her goals of care. Qualifiers: Hypertension type: primary hypertension Qualified Code(s): I10 - Essential (primary) hypertension
[2025-07-06 19:24] VITALS: BP 187/102
[2025-07-06] MEDS: GLYCOPYRROLATE 1 MG/5 ML VIAL SUBQ PRN (21:41)
[2025-07-07 01:07] VITALS: TEMP 97.5
[2025-07-07 03:51] VITALS: O2SAT 93
--- NOTE | 2025-07-07 07:16 | PROVIDER PROGRESS NOTE ---
Subjective Prog Note Date Prog Note Date: 07/07/25 Prog Note Time: 07:15 Subjective Subjective: Patient had a rough evening last night. Very anxious and agitated. Getting PRNs. She may have aspirated on food. She became hypoxemic during the night. She was started on oxygen by the nurse. She is having agonal breathing this morning. Suspect she is imminent. Discussed with her family was obviously very tearful. They are calling family to get to bedside. Current Medications Current Medications Current Medications: Current Medications Generic Name Dose Route Start Last Admin Trade Name Freq PRN Reason Stop Dose Admin Acetaminophen 650 mg 07/04/25 09:36 Acetaminophen 650 Mg Supp [place] Q4H PRN Fever >101 Bisacodyl 10 mg 07/05/25 05:42 07/06/25 13:11 Bisacodyl 10 Mg Supp [place] 10 mg DAILY PRN Administration Constipation Calamine 1 applic 06/24/25 14:59 06/24/25 17:30 Calamine/Zinc Oxide 177 Ml Bottle TOP 1 applic Q6HR PRN Administration ITCHING Carvedilol 3.125 mg 06/30/25 21:00 07/06/25 20:12 Carvedilol 3.125 Mg Tablet PO 3.125 mg BID JANETTE Administration Docusate Sodium 100 mg 06/21/25 14:17 07/06/25 08:53 Docusate Sodium 100 Mg Capsule PO 100 mg DAILY PRN Administration Constipation Glycopyrrolate 0.2 mg 07/04/25 09:36 07/07/25 03:59 Glycopyrrolate 1 Mg/5 Ml Vial SUBQ 0.2 mg Q4H PRN Administration Excessive secretions Hydralazine HCl 100 mg 06/21/25 21:00 07/06/25 20:12 Hydralazine 25 Mg Tablet PO 100 mg BID JANETTE Administration Lidocaine 1 patch 06/22/25 09:00 07/06/25 08:53 Lidocaine Patch 4% TOP 1 patch DAILY JANETTE Administration Lorazepam 2 mg 07/07/25 07:14 Lorazepam 1 Mg Tablet SL Q2H PRN Anxiety Melatonin 6 mg 06/26/25 21:00 07/06/25 20:13 Melatonin 3 Mg Tablet PO 6 mg QPM JANETTE Administration Morphine Sulfate 10 mg 07/04/25 09:36 07/07/25 06:26 Morphine Darline 10 Mg/0.5 Ml Oral Syringe SL 10 mg Q2HR PRN Administration Moderate Pain (Level 4-6)/SOA Nystatin 1 applic 06/21/25 14:17 06/25/25 09:44 Nystatin Powder 15 Gm TOP 1 applic TID PRN Administration rash Olanzapine 10 mg 07/06/25 19:20 07/06/25 19:26 Olanzapine Odt 5 Mg Tablet TL 10 mg Q12H PRN Administration Agitation Ondansetron HCl 4 mg 06/21/25 13:42 07/03/25 09:47 Ondansetron Odt 4 Mg Tablet TL 4 mg Q6HR PRN Administration Nausea / Vomiting Ondansetron HCl 4 mg 06/21/25 13:42 06/23/25 13:53 Ondansetron 4 Mg/2 Ml Vial IVP 4 mg Q6HR PRN Administration Nausea / Vomiting Polyethylene Glycol 17 gm 07/04/25 09:36 Polyethylene Glycol 3350 17 Gm Packet PO DAILY PRN Constipation Prochlorperazine Edisylate 10 mg 06/23/25 08:38 07/03/25 00:18 Prochlorperazine 10 Mg/2 Ml Vial IVP 10 mg Q6HR PRN Administration Nausea / Vomiting Quetiapine Fumarate 50 mg 07/03/25 21:00 07/06/25 20:13 Quetiapine 25 Mg Tablet PO 50 mg QPM JANETTE Administration Senna 8.6 - 17.2 mg 07/03/25 20:00 07/06/25 08:52 Senna 8.6 Mg Tablet PO 8.6 mg DAILY JANETTE Administration Objective Vital Signs/Intake & Output Reviewed Vital Signs: Yes Vital Signs: Vital Signs x48h Temp Pulse Resp Pulse Ox O2 Flow Rate 07/07/25 03:50 116 H 22 93 2 07/07/25 03:45 22 98 5 07/07/25 01:06 36.4 C L 119 H 24 78 L 07/07/25 01:00 113 H 22 31 L 5 Intake & Output: Intake & Output 07/04/25 07/05/25 07/06/25 07/07/25 23:59 23:59 23:59 23:59 Intake Total 380 / 380 0 / 0 Output Total 950 / 950 150 / 150 400 / 400 0 / 0 Balance -950 / -950 230 / 230 -400 / -400 0 / 0 Weight (kg) 102 kg Objective Comments/Other: GEN: No acute distress. Resting comfortably. HEENT: NC/AT, normal appearance of external ears and nose. Cardiac: Regular rate and rhythm, no murmurs. Pulm: Normal effort on room air. Diffuse rales. Absent cough. Abdomen: Soft, nontender, nondistended. No rebound or guarding Neuro: Face symmetric, CN II through XII intact grossly. No focal neurologic deficits. Strong muscle tone. Psych: Rouses easily from sleep. Euthymic mood. Cooperative. Lab Results 07/03/25 09:19 07/03/25 09:19 Other Labs: Lab Results x24hrs 07/03/25 Range/Units 09:19 WBC 14.3 H (4.8-10.8) x10^3/uL RBC 2.73 L (4.20-5.40) 10^6/uL Hgb 8.9 L (12.0-16.0) g/dL Hct 27.6 L (37.0-47.0) % MCV 101.1 H (81.0-99.0) fL MCH 32.6 H (27.0-31.0) pg MCHC 32.2 (32.0-36.0) g/dL RDW 18.7 H (12.0-15.0) % Plt Count 281 (130-450) 10^3/uL MPV 9.7 (7.9-10.8) fL Sodium 129 L (135-145) mmol/L Potassium 4.6 H (3.5-4.5) mmol/L Chloride 103 (101-111) mmol/L Carbon Dioxide 22 (21-32) mmol/L Anion Gap 4.0 L (6-13) BUN 24 H (6-20) mg/dL Creatinine 1.0 (0.6-1.3) mg/dL Estimated GFR (MDRD) 52 L (>89) Glucose 133 H (74-104) mg/dL Calcium 7.6 L (8.5-10.3) mg/dL Total Bilirubin 0.8 (0.2-1.0) mg/dL AST 23 (10-42) IU/L ALT 14 (10-60) IU/L Alkaline Phosphatase 75 (42-121) IU/L Total Protein 5.0 L (6.4-8.9) g/dL Albumin 2.6 L (3.2-5.5) g/dL Globulin 2.4 (2.1-4.2) g/dL Albumin/Globulin Ratio 1.1 (1.0-2.2) Sepsis Event Note (H) Evaluation Current Stage of Sepsis: Septic shock Possible source of Sepsis: positive Unknown Sepsis Criteria Sepsis Criteria: WBC count greater than 12,000 or less than 4000, MAP less than 65 mmHg and Metabolic: lactate > 2 mmol/L Assessment/Plan Problem List (1) Hematoma: Impression: Patient has a known hematoma in her left hip, identified on CT postoperatively. It was large at that time. She is having more pain in her left hip on 07/06 and copious malodorous drainage. Treatment of this is challenging, given her hospice status. She was found on bedside ultrasound to have persistent large hematoma. Orthopedic surgery is aware. - Hematoma is draining. No intervention planned at this time. (2) Dementia: Impression: Patient is now somnolent, obtunded. Agonal breathing. Suspect she is eminent. Pending dispo to home with hospice. Daughter has still not heard from hospice yet. She is working to purchase equipment for home independently. Patient with longstanding moderate Alzheimer's. Complicating the rest of her hospitalization. She normally lives with her daughter and has good supports in the community. After her prolonged hospitalization, on hospital day 12, the patient's daughter and POA is opting to transition to a comfort focused approach. - As needed medications for comfort. - I notified hospitalist that she may be eminent in the hospital, they have intake plan for or on Tuesday if she survives. - DME order written for patient to have purewick at home. Suspect hospice can supply this if insurance will not cover it otherwise. - POLST completed 07/04, scanned into the chart, and originals with the patient. Qualifiers: Alzheimer's disease onset: late onset Dementia behavioral or psychological symptom: with mood disturbance Dementia severity: moderate D ementia type: Alzheimer's Qualified Code(s): G30.1 - Alzheimer's disease with late onset; F02.B3 - Dementia in other diseases classified elsewhere, moderate, with mood disturbance (3) Leukocytosis: Impression: At the time of transition to comfort measures, she did have a rising leukocytosis. She denies any fevers or chills. Her vital signs remained stable. Suspect she may have some underlying infection or hematoma. - No longer trending in the setting of her comfort measures status (4) Dysphagia: Impression: Patient had dysphagia after time in the ICU. She briefly had an NGT placed and was on tube feeds. This was discontinued 07/03. Likely aspirated 07/06 overnight, became hypoxemic. She is required oxygen supplementation since then. - She is on a compassionate diet, appreciate speech involvement. Family understand the risks she may aspirate. Qualifiers: Dysphagia type: unspecified Qualified Code(s): R13.10 - Dysphagia, unspecified (5) Shock: Impression: Resolved, consistent with hypovolemic shock and ABLA. Improved with blood product and fluids. She did require high dose pressors for 2 days while this was in process. Consideration for septic shock as she had an elevated leukocytosis, but she remained afebrile and cultures remain negative. Antibiotics were discontinued 06/25. Blood pressure is now stabilized. She has been resumed on her home antihypertensives. (6) Acute blood loss anemia: Impression: Resolved, as above (7) NAOMI (acute kidney injury): Impression: Resolved, suspect ATN in setting of shock and hypotension. Improved with fluids as above. Serum creatinine 1.0 as of 07/02. (8) Femoral neck fracture: Impression: Continues to be quite debilitated. Going home with hospice. Hematoma associated as above. Patient's presenting concern after a mechanical ground-level fall. S/p surgical pair 06/22. Complicated by ABLA as above. Before she transitioned to [employer], plan was for home with home health. Qualifiers: Encounter type: initial encounter Fracture type: closed Laterality: l eft Qualified Code(s): S72.002A - Fracture of unspecified part of neck of left femur, initial encounter for closed fracture (9) Atrial fibrillation: Impression: Notably she is not on any anticoagulation. Her daughter seems to remember that after she had several falls, that she was taken off of anticoagulation because of her increased bleeding risk. This was several years ago. Tachycardic at times. Anticoagulation as above. Qualifiers: Atrial fibrillation type: longstanding persistent Qualified Code(s): I 48.11 - Longstanding persistent atrial fibrillation (10) Hypertension: Impression: Antihypertensives have been discontinued given her goals of care. Qualifiers: Hypertension type: primary hypertension Qualified Code(s): I10 - Essential (primary) hypertension
[2025-07-07] MEDS ORDERED: HYDROmorphone 1 MG/ML CARPUJECT IVP PRN (14:43)
[2025-07-07] MEDS ORDERED: MORPHINE SOL 10 MG/0.5 ML ORAL SYRINGE PO PRN (15:36)
[2025-07-08] MEDS ORDERED: HYDROmorphone 0.5 MG/0.5 ML SYRINGE IVP PRN (03:23)
[2025-07-08] MEDS: fentaNYL 12 MCG PATCH TOP SCH (03:40)
[2025-07-08] MEDS: HYDROmorphone 0.5 MG/0.5 ML SYRINGE IM PRN (05:04)
[2025-07-08] MEDS ORDERED: HYDROmorphone 0.5 MG/0.5 ML SYRINGE SUBQ PRN (07:56)
--- NOTE | 2025-07-08 08:01 | PROVIDER PROGRESS NOTE ---
Subjective Prog Note Date Prog Note Date: 07/08/25 Prog Note Time: 07:56 Subjective Subjective: Patient continue to have some discomfort overnight. She rested through mostly early evening, and then over the early hours of the morning she was more uncomfortable, grunting. She was administered IM Dilaudid and eventually given IV fentanyl patch which has not yet likely had enough time to work. She is tachypneic. Grunting breaths. I still suspect she is imminent. Current Medications Current Medications Current Medications: Current Medications Generic Name Dose Route Start Last Admin Trade Name Freq PRN Reason Stop Dose Admin Acetaminophen 650 mg 07/04/25 09:36 Acetaminophen 650 Mg Supp MO Q4H PRN Fever >101 Bisacodyl 10 mg 07/05/25 05:42 07/06/25 13:11 Bisacodyl 10 Mg Supp MO 10 mg DAILY PRN Administration Constipation Calamine 1 applic 06/24/25 14:59 06/24/25 17:30 Calamine/Zinc Oxide 177 Ml Bottle TOP 1 applic Q6HR PRN Administration ITCHING Docusate Sodium 100 mg 06/21/25 14:17 07/06/25 08:53 Docusate Sodium 100 Mg Capsule PO 100 mg DAILY PRN Administration Constipation Fentanyl 1 patch 07/08/25 04:00 07/08/25 03:40 Fentanyl 12 Mcg Patch TOP 1 patch Q3D JANETTE Administration Glycopyrrolate 0.2 mg 07/04/25 09:36 07/07/25 03:59 Glycopyrrolate 1 Mg/5 Ml Vial SUBQ 0.2 mg Q4H PRN Administration Excessive secretions Hydralazine HCl 100 mg 06/21/25 21:00 07/07/25 21:15 Hydralazine 25 Mg Tablet PO Not Given BID JANETTE Hydromorphone HCl 1 mg 07/07/25 14:43 Hydromorphone 1 Mg/Ml Carpuject IVP Q2HR PRN Severe Pain (Level 7-10) Hydromorphone HCl 0.5 mg 07/08/25 07:56 Hydromorphone 0.5 Mg/0.5 Ml Syringe SUBQ Q1H PRN Severe Pain (Level 7-10) Lidocaine 1 patch 06/22/25 09:00 07/07/25 09:22 Lidocaine Patch 4% TOP Not Given DAILY JANETTE Lorazepam 2 mg 07/07/25 07:14 07/07/25 03:02 Lorazepam 1 Mg Tablet SL 2 mg Q2H PRN Administration Anxiety Morphine Sulfate 10 mg 07/07/25 15:36 Morphine Darline 10 Mg/0.5 Ml Oral Syringe PO Q2HR PRN Moderate Pain (Level 4-6) Nystatin 1 applic 06/21/25 14:17 06/25/25 09:44 Nystatin Powder 15 Gm TOP 1 applic TID PRN Administration rash Olanzapine 10 mg 07/06/25 19:20 07/06/25 19:26 Olanzapine Odt 5 Mg Tablet TL 10 mg Q12H PRN Administration Agitation Ondansetron HCl 4 mg 06/21/25 13:42 07/03/25 09:47 Ondansetron Odt 4 Mg Tablet TL 4 mg Q6HR PRN Administration Nausea / Vomiting Ondansetron HCl 4 mg 06/21/25 13:42 06/23/25 13:53 Ondansetron 4 Mg/2 Ml Vial IVP 4 mg Q6HR PRN Administration Nausea / Vomiting Polyethylene Glycol 17 gm 07/04/25 09:36 Polyethylene Glycol 3350 17 Gm Packet PO DAILY PRN Constipation Prochlorperazine Edisylate 10 mg 06/23/25 08:38 07/03/25 00:18 Prochlorperazine 10 Mg/2 Ml Vial IVP 10 mg Q6HR PRN Administration Nausea / Vomiting Quetiapine Fumarate 50 mg 07/03/25 21:00 07/07/25 21:16 Quetiapine 25 Mg Tablet PO Not Given QPM JANETTE Senna 8.6 - 17.2 mg 07/03/25 20:00 07/07/25 09:22 Senna 8.6 Mg Tablet PO Not Given DAILY JANETTE Objective Vital Signs/Intake & Output Reviewed Vital Signs: Yes Vital Signs: Vital Signs x48h Resp O2 Flow Rate 07/08/25 04:55 34 H 5 Intake & Output: Intake & Output 07/05/25 07/06/25 07/07/25 07/08/25 23:59 23:59 23:59 23:59 Intake Total 380 / 380 0 / 0 0 / 0 Output Total 150 / 150 400 / 400 0 / 0 0 / 0 Balance 230 / 230 -400 / -400 0 / 0 0 / 0 Objective Comments/Other: GEN: No acute distress. Resting comfortably. Does not arouse to voice. HEENT: NC/AT, normal appearance of external ears and nose. Very dry oral mucosa. Cardiac: Regular rate and rhythm, no murmurs. Pulm: Tachypneic. Normal effort room air. No cough. Secretions are clear from yesterday. Abdomen: Soft, nontender, nondistended Neuro: Face symmetric. Not moving any of her extremities independently. Psych: Unable to assess. Appears comfortable. Lab Results 07/03/25 09:19 07/03/25 09:19 Other Labs: Lab Results x24hrs 07/03/25 Range/Units 09:19 WBC 14.3 H (4.8-10.8) x10^3/uL RBC 2.73 L (4.20-5.40) 10^6/uL Hgb 8.9 L (12.0-16.0) g/dL Hct 27.6 L (37.0-47.0) % MCV 101.1 H (81.0-99.0) fL MCH 32.6 H (27.0-31.0) pg MCHC 32.2 (32.0-36.0) g/dL RDW 18.7 H (12.0-15.0) % Plt Count 281 (130-450) 10^3/uL MPV 9.7 (7.9-10.8) fL Sodium 129 L (135-145) mmol/L Potassium 4.6 H (3.5-4.5) mmol/L Chloride 103 (101-111) mmol/L Carbon Dioxide 22 (21-32) mmol/L Anion Gap 4.0 L (6-13) BUN 24 H (6-20) mg/dL Creatinine 1.0 (0.6-1.3) mg/dL Estimated GFR (MDRD) 52 L (>89) Glucose 133 H (74-104) mg/dL Calcium 7.6 L (8.5-10.3) mg/dL Total Bilirubin 0.8 (0.2-1.0) mg/dL AST 23 (10-42) IU/L ALT 14 (10-60) IU/L Alkaline Phosphatase 75 (42-121) IU/L Total Protein 5.0 L (6.4-8.9) g/dL Albumin 2.6 L (3.2-5.5) g/dL Globulin 2.4 (2.1-4.2) g/dL Albumin/Globulin Ratio 1.1 (1.0-2.2) Sepsis Event Note (H) Evaluation Current Stage of Sepsis: Septic shock Possible source of Sepsis: positive Unknown Sepsis Criteria Sepsis Criteria: WBC count greater than 12,000 or less than 4000, MAP less than 65 mmHg and Metabolic: lactate > 2 mmol/L Assessment/Plan Problem List (1) Hematoma: Impression: Patient has a known hematoma in her left hip, identified on CT postoperatively. It was large at that time. She is having more pain in her left hip on 07/06 and copious malodorous drainage. Treatment of this is challenging, given her hospice status. She was found on bedside ultrasound to have persistent large hematoma. Orthopedic surgery is aware. - Hematoma is draining. No intervention planned at this time. (2) Dementia: Impression: Patient is now somnolent, obtunded. Agonal breathing. Suspect she is eminent. Pending dispo to home with hospice. Daughter has still not heard from hospice yet. She is working to purchase equipment for home independently. Patient with longstanding moderate Alzheimer's. Complicating the rest of her hospitalization. She normally lives with her daughter and has good supports in the community. After her prolonged hospitalization, on hospital day 12, the patient's daughter and POA is opting to transition to a comfort focused approach. - As needed medications for comfort. - Transition Dilaudid to subcutaneous as this stands to have less muscle irritation and equal delivery. It does not seem that we have subcutaneous catheters stocked in the hospital. - Fentanyl patch in place, will take several hours for it to reach therapeutic levels - I notified Hospice that she is likely imminent. They have intake plan for or on Tuesday if she survives. - DME order written for patient to have purewick at home. Suspect hospice can supply this if insurance will not cover it otherwise. - POLST completed 07/04, scanned into the chart, and originals with the patient. Qualifiers: Dementia type: Alzheimer's Alzheimer's disease onset: late onset D ementia severity: moderate Dementia behavioral or psychological symptom: with mood disturbance Qualified Code(s): G30.1 - Alzheimer's disease with late onset; F02.B3 - Dementia in other diseases classified elsewhere, moderate, with mood disturbance (3) Leukocytosis: Impression: At the time of transition to comfort measures, she did have a rising leukocytosis. She denies any fevers or chills. Her vital signs remained stable. Suspect she may have some underlying infection or hematoma. - No longer trending in the setting of her comfort measures status (4) Dysphagia: Impression: Patient had dysphagia after time in the ICU. She briefly had an NGT placed and was on tube feeds. This was discontinued 07/03. Likely aspirated 07/06 overnight, became hypoxemic. She is required oxygen supplementation since then. - She is on a compassionate diet, appreciate speech involvement. Family understand the risks she may aspirate. - Not Waking to eat essentially since 07/07. Qualifiers: Dysphagia type: unspecified Qualified Code(s): R13.10 - Dysphagia, unspecified (5) Shock: Impression: Resolved, consistent with hypovolemic shock and ABLA. Improved with blood product and fluids. She did require high dose pressors for 2 days while this was in process. Consideration for septic shock as she had an elevated leukocytosis, but she remained afebrile and cultures remain negative. Antibiotics were discontinued 06/25. Blood pressure is now stabilized. She has been resumed on her home antihypertensives. (6) Acute blood loss anemia: Impression: Resolved, as above (7) NAOMI (acute kidney injury): Impression: Resolved, suspect ATN in setting of shock and hypotension. Improved with fluids as above. Serum creatinine 1.0 as of 07/02. (8) Femoral neck fracture: Impression: Continues to be quite debilitated. Going home with hospice. Hematoma associated as above. Patient's presenting concern after a mechanical ground-level fall. S/p surgical pair 06/22. Complicated by ABLA as above. Before she transitioned to [employer], plan was for home with home health. Qualifiers: Encounter type: initial encounter Fracture type: closed Laterality: l eft Qualified Code(s): S72.002A - Fracture of unspecified part of neck of left femur, initial encounter for closed fracture (9) Atrial fibrillation: Impression: Notably she is not on any anticoagulation. Her daughter seems to remember that after she had several falls, that she was taken off of anticoagulation because of her increased bleeding risk. This was several years ago. Tachycardic at times. Anticoagulation as above. Qualifiers: Atrial fibrillation type: longstanding persistent Qualified Code(s): I 48.11 - Longstanding persistent atrial fibrillation (10) Hypertension: Impression: Antihypertensives have been discontinued given her goals of care. Qualifiers: Hypertension type: primary hypertension Qualified Code(s): I10 - Essential (primary) hypertension
--- NOTE | 2025-07-08 22:13 | Discharge Summary ---
"Discharge Summary Admit Date: 06/21/25 Discharge Date: 07/09/25 Discharging Provider: Navdeep Grimm Primary Care Provider: Shelli Garcia Code Status: Do Not Attempt Resuscitation Discharge Facility Name: Home with hospice DIAGNOSES Discharge Diagnoses with Status of Each Condition: Dementia, chronic, stable Left hip fracture, stable HTN, Stable HLD stable HPI History of Present Illness: Fide Heath is an 89-year-old female with past medical history notable for hypertension, Alzheimer's dementia, hypothyroidism, and insomnia who presents following a ground-level fall at her facility. She is found to have a femoral neck fracture. She is admitted for left femoral neck fracture. Patient had a mechanical ground-level fall at her facility. She lives at a memory care facility. She got up from bed and tripped on her nightgown falling onto her left hip. She did not lose consciousness. She did not strike her head. She not feel dizzy prior to falling. She is not on any blood thinners. Apparently in the ED, she was having profound pain in her left hip. She does not remember the fall. Given her dementia, she she does not remember why her butt hurts. She is putting pressure on her left hip because he she says it makes it feel better. She is unable to bear any weight in the community. She denies any fevers or chills, dysuria, urinary frequency, diarrhea, nausea or vomiting. Otherwise she has a history of hypertension, this is managed with multiple agents. Apparently she was doing well in the outpatient community and has been back down on her hydralazine to twice daily from 3 times daily. Regarding her dementia, it is moderate. She has difficulty with completing some of her ADLs. She does feed herself, she dresses herself. She toilets and bathes with prompting. She is on memantine. Otherwise was started on mirtazapine by her primary care doctor for treatment of sleep disturbance in the setting of her dementia. CONSULTS | PROCEDURES Consultations: Orthopedic surgery Procedures: L hip pinning 06/22/2025 HOSPITAL COURSE Hospital Course: Very nice 89F with past medical history of moderate dementia who unfortunately suffered a hip fracture at a memory care center on the day of admission. She was taken with orthopedic surgery for hip pinning. She had an uneventful procedure, but her recovery was complicated by acute blood loss anemia, requiring pressors in the ICU. She had worsened delirium in the setting of her dementia, precipitating dysphagia and was placed on tube feeds which she did not tolerate well. She had ongoing pain in from her operative site and an associated hematoma that exacerbated her delirium. She required multiple doses of anxiolytics, antipsychotics and oral and IV narcotics. Her family remained with her for the length of her stay. They sat goldstein and provided support to both calm her anxiety and attend to her needs. They clearly care about their families matriarch. On 07/03, after some soul searching and reviewing the patients previously documented wishes, the family opted to transition the patient to comfort care, knowing that the further rehab or more procedures would only prolong her delirium. They opted to enroll her in hospice. She has had a precipitous decline and was briefly on compassionate feeds but for the 2 days prior to discharge has been primarily somnolent. Initial plan was for for hospice intake at 1000 on 07/09. However, she ended up passing peacefully in the hospital. ALLERGIES Allergies Allergy/AdvReac Type Severity Reaction Status Date / Time aspirin Allergy Anaphylaxis Verified 06/21/25 09:18 Gadolinium-Containing Allergy Hives Verified 06/21/25 09:18 Contrast Medi iodine Allergy Hives Verified 06/21/25 09:18 Penicillins Allergy Anaphylaxis Verified 06/21/25 09:18 MEDICATIONS Ambulatory Orders Medication Instructions Recorded Confirmed lorazepam 2 mg/mL oral concentrate 1 mg (0.5 mL) PO Q2 H PRN anxiety 07/08/25 (Lorazepam Intensol) #30 mL morphine concentrate 10 mg/0.5 mL 10 mg (0.5 mL) PO Q2 HR PRN 07/08/25 oral syringe (FOR ORAL USE ONLY) Moderate Pain (Level 4-6) #10 ea PHYSICAL EXAM AT DISCHARGE Vital Signs: Patient . No heart/lung sounds auscultated. Pulses absent. Ocular reflex absebt. LABS 07/03/25 09:19 07/03/25 09:19 SEPSIS Current Stage of Sepsis: Septic shock Possible source of Sepsis: Unknown Sepsis Criteria: WBC count greater than 12,000 or less than 4000, MAP less than 65 mmHg and Metabolic: lactate > 2 mmol/L TIME SPENT Time Spent in Discharge (Minutes): 35 Discharge Plan Discharge Patient Disposition: 20 Plan of Treatment: Patient picked up by [facility] at 0345. Print Language: Irish Date/Time: 07/09/25 01:00"
== END 2025-07-09 01:00 | disposition expired | DRG 521 ==
LOC: ED 09:15 → MS3 11:51 → ICU 06-22 20:27 → MS2 06-26 14:56
PROVIDERS: ADMIT Student in an Organized Health Care Education/Training Program; ATTEND Student in an Organized Health Care Education/Training Program
PROC: HEMIHIP (2025-06-22 14:00)
DX: R57.1 Hypovolemic shock; G30.1 Alzheimer's disease with late onset; N17.0 Acute kidney failure with tubular necrosis; A41.9 Sepsis, unspecified organism; S72.002A Fracture of unspecified part of neck of left femur, initial encounter for closed fracture; I48.11 Longstanding persistent atrial fibrillation; R65.21 Severe sepsis with septic shock; Z78.1 Physical restraint status; D62 Acute posthemorrhagic anemia; W01.0XXA Fall on same level from slipping, tripping and stumbling without subsequent striking against object, initial encounter; D72.829 Elevated white blood cell count, unspecified; R09.02 Hypoxemia; E78.5 Hyperlipidemia, unspecified; E87.1 Hypo-osmolality and hyponatremia; E03.9 Hypothyroidism, unspecified; Y92.092 Bedroom in other non-institutional residence as the place of occurrence of the external cause; E87.20 Acidosis, unspecified; G93.41 Metabolic encephalopathy; Z91.81 History of falling; I27.20 Pulmonary hypertension, unspecified; F41.9 Anxiety disorder, unspecified; L76.32 Postprocedural hematoma of skin and subcutaneous tissue following other procedure; I95.81 Postprocedural hypotension; Z51.5 Encounter for palliative care; I10 Essential (primary) hypertension; S72.012A Unspecified intracapsular fracture of left femur, initial encounter for closed fracture; Z66 Do not resuscitate; G47.00 Insomnia, unspecified; R13.10 Dysphagia, unspecified; F02.B3 Dementia in other diseases classified elsewhere, moderate, with mood disturbance